=== PATIENT | male | born 1990 | race Caucasian/White ===

== ENCOUNTER 2016-03-09 07:54 | Day surgery (SDC) | payer BC, MEDICAID ==
[~2016-03-09] VITALS: Ht 190.5 cm; Wt 122.5 kg
[2016-03-09] VITALS (10 sets, daily range): BP systolic 119–143; BP diastolic 80–102
[~2016-03-09 07:54] MED LIST: CEFT1VIA58 IJ; CYCL10TA9 PO; DOCU-143 PO; FURO40TA4 PO; GLIM2TAB PO; GLUC1KIT; HYDR-3583 PO; HYDR-3812 PO; INSU100I10; INSU100I14; LISI10TA2 PO; LORA-405 PO; METF1000 PO; METF500T8 PO; METH4TAB PO; METO-272 PO; MTF500T PO; NAPR220T66 PO; OMEP20CA12; POTA20TA15; VIVANCE PO
--- OUTSIDE RECORDS SUMMARY | 2016-03-09 07:58 | XMS REPORT | Continuity of Care Document ---
Author Author [facility] Organization [facility] Address Unknown Phone Unavailable Care Team Providers Care Chemistry Quality Control Analyst Name Role Phone JOANNE LOPEZ DO PCP Insurance Providers Payer Name Policy Number Subscriber Name Relationship 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 Problems Active Problems Medical Problem Onset Date Status Anemia Unknown Acute Electrolyte imbalance Unknown Acute Hypokalemia Unknown Acute Leukocytosis Unknown Acute Renal insufficiency Unknown Acute Uncontrolled diabetes mellitus Unknown Acute Urinary tract infection Unknown Acute Medications Current Home Medications Medication Dose Units Route Directions Days/Qty Instructions Start Date Metoprolol Succinate 50 Mg 50 Mg Oral Bedtime 10/14/15 Naproxen Sodium 220 Mg 220-440 Mg Oral Twice A Day as needed for Pain TAKES 1-2 (220 MG) TABLETS 10/14/15 Furosemide 40 Mg 30 11/25/15 Potassium Chloride 20 Meq 60 11/25/15 Glucagon,Human Recombinant 1 Mg/Kit 1 10/05/16 Insulin Aspart 300 Units/3 Ml 6 11/25/15 Insulin Glargine,Hum.rec.anlog 100 Unit/1 Ml 6 11/25/15 Ceftriaxone Sodium 1 Gm 1 Gm Injection 11/25/15 Past Home Medications Medication Directions Ordered Status [Vivance] , 100 Mg Oral Daily 02/13/09 Discontinued Methylprednisolone 4 Mg/Dose-Pack Tab.ds.pk, 0 Oral As Directed 02/13/09 Discontinued Cyclobenzaprine Hcl (Flexeril) 10 Mg Tablet, 1 Each Oral Three Times A Day And Prn 02/13/09 Discontinued Metformin Hcl (Glucophage) 500 Mg Tablet, 1 Each Oral Daily 11/16/09 Discontinued Acetaminophen/Hydrocodone Bitart 1 Tab Tab, 1 - 2 Ea Oral Q4hr Prn 11/19/09 Discontinued Metformin Hcl 1,000 Mg Tablet, 1000 Mg Oral Twice A Day 02/10/15 Discontinued Metoprolol Succinate 50 Mg Tab.er.24h, 50 Mg Oral Bedtime 02/10/15 Discontinued Lorazepam 1 Mg Tablet, 1 Mg Oral Three Times A Day as needed for Anxiety Discontinued Hydrocodone/Acetaminophen 1 Each Tablet, 1 Tab Oral Every 4HRS as needed for 02/12/15 Discontinued Docusate Sodium 100 Mg Capsule, 100 Mg Oral Twice A Day 02/12/15 Discontinued Lisinopril 10 Mg Tablet, 10 Mg Oral Daily 10/13/15 Discontinued Metformin Hcl 500 Mg Tab.er.24h, 1000 Mg Oral Twice A Day 10/13/15 Discontinued Glimepiride 2 Mg Tablet, 2 Mg Oral Twice A Day 10/13/15 Discontinued Omeprazole 20 Mg Capsule., 10/14/15 Discontinued Social History Social History Problem Response Recorded Date/Time Alcohol Use Occasionally Uses 02/12/2015 9:28am Recreational Drug Use No 02/12/2015 9:28am Recent Foreign Travel No 11/25/2015 1:35am Recent Infectious Disease Exposure No 11/25/2015 1:35am Hospitalization with Isolation Denies 11/25/2015 1:35am Sexually Transmitted Disease No 11/25/2015 1:35am HIV/AIDS No 11/25/2015 1:35am Smoking Status Former Smoker 11/25/2015 2:41am Type Used Cigarettes 11/25/2015 1:35am Recent Hopitalizations Yes 11/25/2015 2:41am Sexually Transmitted Disease No 11/25/2015 1:35am Hospitalization with Isolation Denies 11/25/2015 1:35am Hx Sexually Transmitted Disorders No 11/19/2009 10:05am Query Response Start Date Stop Date Smoking Status Former Smoker Hospital Discharge Instructions No hospital discharge instructions. Plan of Care Discharge Date 11/25/15 12:42pm Disposition 02 XFER [facility]M HOSP Condition at Discharge Stable Instructions/Education Provided Acute Abdominal Pain (ED) Prescriptions See Medication Section Referrals JOANNE LOPEZ DO - Primary Care Physician NERY WATSON - Primary Care Physician Functional Status No functional status results. Allergies, Adverse Reactions, Alerts Allergen Type Severity Reaction Status Last Updated Tramadol Allergy Mild Active 02/13/09 Topiramate Allergy Intermediate MADE HAIR FALL OUT Active 02/10/15 Immunizations No immunization records. Vital Signs Acute Vital Signs Vital Response Date/Time Temperature (Fahrenheit) 97.8 degrees F (97.6 - 99.5) 11/25/2015 5:00am Temperature (Calculated Celsius) 36.47735 degrees C (36.4 - 37.5) 11/25/2015 5:00am Temperature Source Temporal 11/25/2015 5:00am Pulse Rate (adult) 91 bpm (60 - 90) 11/25/2015 6:30am Respiratory Rate 13 bpm (12 - 24) 11/25/2015 6:30am O2 Sat by Pulse Oximetry 94 % (88 - 100) 11/25/2015 6:30am Blood Pressure 125/64 mm Hg 11/25/2015 6:30am Blood Pressure Mean 84 mm Hg 11/25/2015 6:30am Pain Numeric Pain Scale 7 11/25/2015 11:33am Height (Feet) 6 feet 11/25/2015 1:35am Height (Inches) 3 inches 11/25/2015 1:35am Height (Calculated Centimeters) 190.166791 cm 11/25/2015 1:35am Weight (Pounds) 270 pounds 11/25/2015 1:35am Weight (Ounces) 0.8 oz 11/25/2015 1:35am Weight (Calculated Grams) 897304.424 gm 11/25/2015 1:35am Weight (Calculated Kilograms) 122.163301 kilograms 11/25/2015 1:35am Calculated BMI 40.0 11/25/2015 1:35am Capillary Refill Capillary Refill Less Than 3 Seconds 11/25/2015 6:30am Results Pending Laboratory Results Test Name Collection Date/Time Procedures Procedure Status Date Provider(s) Tracing only of electrocardiogram Active 11/25/15 ISAAC INGRAM DO Encounters Encounter Location Arrival/Admit Date Discharge/Depart Date Attending Provider Departed Emergency Room [facility] 11/25/15 1:19am 11/24 12:42pm ISAAC INGRAM DO Registered Clinic [facility] 11/23/15 5:34pm OTHER, UNLISTED Registered Clinic [facility] 11/23/15 5:23pm NERY WATSON Recent Diagnosis
--- OUTSIDE RECORDS SUMMARY | 2016-03-09 07:59 | XMS REPORT | Continuity of Care Document ---
Author Author [facility] Organization [facility] Address Unknown Phone Unavailable Care Team Providers Care Compliance Engineer Name Role Phone JOANNE LOPEZ DO PCP Insurance Providers Payer Name Policy Number Subscriber Name Relationship [facility] [id number] Bertha Lei 20 Self / Same As Patient Advance Directives Directive Response Recorded Date/Time Advance Directives No 11/25/15 1:35am Health Care Power of Golf Course Manager No 11/25/15 1:35am Organ Donor Yes 11/25/15 [...] - 99.5) 11/25/2015 5:00am Temperature (Calculated Celsius) 36.47821 degrees C (36.4 - 37.5) 11/25/2015 5:00am [...] 3 inches 11/25/2015 1:35am Height (Calculated Centimeters) 190.532573 cm 11/25/2015 1:35am Weight (Pounds) 270 pounds 11/25/2015 1:35am Weight (Ounces) 0.8 oz 11/25/2015 1:35am Weight (Calculated Grams) 002261.424 gm 11/25/2015 1:35am Weight (Calculated Kilograms) 122.792182 kilograms 11/25/2015 1:35am Calculated BMI 40.0 11/25/2015 1:35am Capillary Refill Capillary Refill Less Than 3 Seconds 11/25/2015 6:30am Results Pending Laboratory Results Test Name Collection Date/Time Procedures Procedure Status Date Provider(s) Tracing only of electrocardiogram Active 11/25/15 ISAAC INGRAM DO Encounters Encounter Location Arrival/Admit Date Discharge/Depart Date Attending Provider Departed Emergency Room [facility] 11/25/15 1:19am 11/24 12:42pm ISAAC INGRAM DO Registered Clinic [facility] 11/23/15 5:34pm OTHER, UNLISTED Registered Clinic [facility] 11/23/15 5:23pm NERY WATSON Recent Diagnosis
[2016-03-09] MEDS ORDERED: LIDOCAINE 2% VISCOUS 15 ML UDC ONE (08:00)
[2016-03-09] MEDS ORDERED: NS IV 1000 ML 1,000 ML ONE (08:00)
[2016-03-09] MEDS ORDERED: NS IV 1000 ML 1,000 ML IV SCH (08:10)
[2016-03-09 08:34] LABS: MEAN PLATELET VOLUME 10.1 FL (7.4-10.4); RED BLOOD COUNT 4.93 10^6/uL (4.35-5.85); RED CELL DISTRIBUTION WIDTH 14.8 % (10.0-14.5); WHITE BLOOD COUNT 13.7 10^3/uL (4.3-11.0)
[2016-03-09 08:40] LABS: BILIRUBIN,URINE NEGATIVE (NEGATIVE); KETONES,URINE NEGATIVE (NEGATIVE); LEUKOCYTE ESTERASE ,URINE NEGATIVE (NEGATIVE); NITRITE,URINE NEGATIVE (NEGATIVE); PH,URINE 7 (5-9); PROTEIN,URINE 1+ (NEGATIVE); UROBILINOGEN,URINE NORMAL (NORMAL)
[2016-03-09 08:43] LABS: SQUAMOUS EPITHELIAL CELL,UR RARE /HPF; WBC,URINE RARE /HPF
[2016-03-09 08:46] LABS: INR 1.2 (0.8-1.4); PROTHROMBIN TIME PATIENT 14.4 SEC (12.2-14.7)
[2016-03-09 08:57] LABS: ALANINE AMINOTRANSFERASE 13 U/L (0-55); ALBUMIN 3.9 G/DL (3.2-4.5); ANION GAP 9 MMOL/L (5-14); ASPARTATE AMINO TRANSFERASE 16 U/L (5-34); BILIRUBIN,TOTAL 1.2 MG/DL (0.1-1.0); BLOOD UREA NITROGEN 12 MG/DL (7-18); BUN/CREATININE RATIO 12; CALCIUM 10.1 MG/DL (8.5-10.1); CARBON DIOXIDE 23 MMOL/L (21-32); CHLORIDE 105 MMOL/L (98-107); CHOLESTEROL 154 MG/DL (< 200); CREATININE SERUM 0.99 MG/DL (0.60-1.30); DIRECT LDL 113 MG/DL (1-129); GFR ESTIMATED > 60; GLUCOSE 143 MG/DL (70-105); POTASSIUM 3.8 MMOL/L (3.6-5.0); SODIUM 137 MMOL/L (135-145); TOTAL PROTEIN 7.2 G/DL (6.4-8.2); TRIGLYCERIDES 129 MG/DL (<150); VLDL CHOLESTEROL 26 MG/DL (5-40)
--- NOTE | 2016-03-09 08:59 | Diagnostic Imaging Report ---
INDICATION: CHF and hypertension. Frontal chest obtained at 839 hours am, and compared to 10/16/15. There is cardiomegaly and post sternotomy change with prosthetic aortic valve. There is central vascular congestion with mild perihilar interstitial edema which was not present previously. There is no pneumothorax or pleural fluid or consolidation. IMPRESSION: Cardiomegaly. New central vascular congestion and perihilar and interstitial edema compatible with CHF. Patient has had sternotomy and aortic valve replacement since the prior study. Dictated by: Dictated on workstation # [id number]
[2016-03-09] MEDS ORDERED: SPIR25TA3 PO (09:11)
[2016-03-09] MEDS ORDERED: SERT25TA5 PO (09:11)
[2016-03-09] MEDS ORDERED: CYCL10TA9 PO (09:11)
[2016-03-09] MEDS ORDERED: CARV3.12 PO (09:11)
[2016-03-09] MEDS ORDERED: GABA600T2 PO (09:11)
[2016-03-09] MEDS ORDERED: FAMO20TA3 PO (09:12)
[2016-03-09] MEDS ORDERED: INSU100V16 SQ (09:21)
[2016-03-09] MEDS ORDERED: MIDAZOLAM 5 MG/5 ML (VERSED) VIAL ONE (09:39)
[2016-03-09] MEDS ORDERED: fentaNYL INJECTION 100 MCG/2 ML AMP ONE (09:39)
--- NOTE | 2016-03-09 09:46 | Cardiac Procedure Note-CS/ASA ---
Pre-Procedure Note Pre-Op Procedure Note H&P Reviewed The H&P was reviewed, patient examined and no changes noted. Date H&P Reviewed: Mar 09, 2016 Time H&P Reviewed: 09:45 Conscious Sedation Pre-Proced Time Reviewed: 09:45 ASA Class: 3 Airway Mallampati Classification: ([place] appropriate class) I. II. III, IV Lungs Heart ASA score ASA 1: a normal healthy patient ASA 2: a patient with a mild systemic disease (mid diabetes, controlled hypertension, obesity X ASA 3: a patient with a severe systemic disease that limits activity (angina , COPD, prior Myocardial infarction) ASA 4: a patient with an incapacitating disease that is a constant threat to life (CHF, renal failure) ASA 5: a moribund patient not expected to survive 24 hrs. (ruptured aneurysm) ASA 6: a declared brain patient whose organs are being harvested. For emergent operations, add the letter E after the classification Grade 3 Sedation Plan: Analgesia, Amnesia, Plan communicated to team members, Discussed options with patient/fam, Discussed risks with patient/fam Note The patient is an appropriate candidate to undergo the planned procedure, sedation, and anesthesia. The patient immediately re-assessed prior to indication. SCARLET FARRELL MD Mar 09, 2016 09:46
[2016-03-09] MEDS ORDERED: FLUMAZENIL (ROMAZICON) 0.1 MG/ML 5 ML VIAL ONE (10:20)
--- NOTE | 2016-03-10 11:38 | DISCHARGE SUMMARY ---
DATE OF PROCEDURE: 03/09/2015 REFERRING PHYSICIAN: Dr. Hermosillo. BRIEF HISTORY: Mr. 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 Redo surgery. He had a transthoracic echo, which did not show the structure of the valve while he was scheduled for RADHA. PROCEDURE NOTE: After explaining the procedure to the patient, all pros and cons were explained. All questions were answered. The patient signed a consent, then he was placed on the left lateral decubitus position. Oropharynx was anesthetized using Cetacaine spray. Omniplane probe was introduced through the mouth, through the esophagus into the stomach. Multiple views were obtained. At the end of the procedure Omniplane probe was removed. No complication noted. FINDINGS: 1. The left ventricle is dilated with diffuse left ventricular hypokinesia. Estimated ejection fraction 30%. 2. The left atrium is dilated, right atrium and right ventricle are prominent. 3. Intra-atrial septum is aneurysmal with shunt noted by agitated saline when it was used. Small amount of bubbles crossing from the right to left. 4. Evaluation of the mitral valve area showed porcine valve in the mitral position appeared to be functioning normally (s/l with thin leaflet). No significant mitral regurgitation. No mitral valve stenosis was noted. Pressure half-time across the mitral valve calculated the valve area of 3.2 mm. 5. Aortic valve evaluation showed prosthetic valve trileaflet in the aortic position. Porcine valve appeared to be with (s/l thin leaflet), functioning normally. No aortic stenosis or regurgitation. 6. Tricuspid and pulmonary valves are normal. 7. No effusion. CONCLUSION: 1. Prosthetic valve in the mitral position porcine valve functioning normally with no mitral stenosis or regurgitation. No vegetation. 2. Prosthetic valve the aortic position trileaflet porcine valve is functioning normally with no aortic stenosis or regurgitation. No vegetation. 3. Dilated left ventricle with diffuse left ventricular hypokinesia. Estimated ejection fraction 30%. 4. Small patent foramen ovale with bidirectional shunt. 5. Dilated left atrium and right heart chambers. FINAL DIAGNOSES: 1. Congestive heart failure, chronic compensated left ventricular systolic dysfunction, nonischemic cardiomyopathy, ejection fraction 30%. 2. Mitral valve replacement. 3. Aortic valve replacement. 4. Diabetes mellitus Job ID: [id number] Dictated Date: 03/09/2016 11:16:40 Contract Technical Writer Date: 03/10/2016 11:35:20/michela
== END 2016-03-09 15:33 | disposition home or self-care (01) ==
LOC: CATH 07:54
PROVIDERS: ATTEND Internal Medicine Cardiovascular Disease
DX: Q21.1 Atrial septal defect (principal); Z95.2 Presence of prosthetic heart valve; I50.22 Chronic systolic (congestive) heart failure; I51.89 Other ill-defined heart diseases; I44.2 Atrioventricular block, complete; E11.40 Type 2 diabetes mellitus with diabetic neuropathy, unspecified; G62.9 Polyneuropathy, unspecified; G89.4 Chronic pain syndrome; E66.9 Obesity, unspecified; I10 Essential (primary) hypertension; Z79.899 Other long term (current) drug therapy; Z79.4 Long term (current) use of insulin; Z68.34 Body mass index [BMI] 34.0-34.9, adult; Z95.0 Presence of cardiac pacemaker
CPT/HCPCS: 36415; 71010; 80053; 80061; 81000; 85027; 85610; 85730; 87081; 93005; 93312

== ENCOUNTER 2016-03-28 21:58 | Emergency (ER) | payer BC, MEDICAID ==
[~2016-03-28] VITALS: Ht 190.5 cm; Wt 129.3 kg
[~2016-03-28 21:58] MED LIST changes: +CARV3.12 PO; +FAMO20TA3 PO; +GABA600T2 PO; +INSU100V16 SQ; +SERT25TA5 PO; +SPIR25TA3 PO
--- OUTSIDE RECORDS SUMMARY | 2016-03-28 22:04 | XMS REPORT | Continuity of Care Document ---
Author Author [facility] Organization [facility] Address Unknown Phone Unavailable Care Team Providers Care Conveyor Man Name Role Phone JOANNE LOPEZ DO PCP Insurance Providers Payer Name Policy Number Subscriber Name Relationship [facility] [id number] Bertha Lei 20 Self / Same As Patient Advance Directives Directive Response Recorded Date/Time Advance Directives No 11/25/15 1:35am Health Care Power of Grounds Person No 11/25/15 1:35am Organ Donor Yes 11/25/15 [...] - 99.5) 11/25/2015 5:00am Temperature (Calculated Celsius) 36.07598 degrees C (36.4 - 37.5) 11/25/2015 5:00am [...] 3 inches 11/25/2015 1:35am Height (Calculated Centimeters) 190.073038 cm 11/25/2015 1:35am Weight (Pounds) 270 pounds 11/25/2015 1:35am Weight (Ounces) 0.8 oz 11/25/2015 1:35am Weight (Calculated Grams) 815450.424 gm 11/25/2015 1:35am Weight (Calculated Kilograms) 122.340897 kilograms 11/25/2015 1:35am Calculated BMI 40.0 11/25/2015 1:35am Capillary Refill Capillary Refill Less Than 3 Seconds 11/25/2015 6:30am Results Pending Laboratory Results Test Name Collection Date/Time Procedures Procedure Status Date Provider(s) Tracing only of electrocardiogram Active 11/25/15 ISAAC INGRAM DO Encounters Encounter Location Arrival/Admit Date Discharge/Depart Date Attending Provider Departed Emergency Room [facility] 11/25/15 1:19am 11/24 12:42pm ISAAC INGRAM DO Registered Clinic [facility] 11/23/15 5:34pm OTHER, UNLISTED Registered Clinic [facility] 11/23/15 5:23pm NERY WATSON Recent Diagnosis
[2016-03-28 22:37] VITALS: BP 148/104
== END 2016-03-28 22:37 | disposition left against medical advice (07) ==
LOC: EDUNIT# 21:58 → ER 22:00
DX: R11.2 Nausea with vomiting, unspecified (principal); F32.9 Major depressive disorder, single episode, unspecified; Z53.21 Procedure and treatment not carried out due to patient leaving prior to being seen by health care provider
CPT/HCPCS: 82962; 99285

== ENCOUNTER → 2016-04-11 | Outpatient (CLI) | payer BC, MEDICAID ==
--- OUTSIDE RECORDS SUMMARY | 2016-04-11 16:23 | XMS REPORT | Continuity of Care Document ---
Author Author [facility] Organization [facility] Address Unknown Phone Unavailable Care Team Providers Care Compensation Consulting Manager Name Role Phone JOANNE LOPEZ DO PCP Insurance Providers Payer Name Policy Number Subscriber Name Relationship [facility] [id number] Bertha Lei 20 Self / Same As Patient Advance Directives Directive Response Recorded Date/Time Advance Directives No 11/25/15 1:35am Health Care Power of Bible Worker No 11/25/15 1:35am Organ Donor Yes 11/25/15 [...] - 99.5) 11/25/2015 5:00am Temperature (Calculated Celsius) 36.14184 degrees C (36.4 - 37.5) 11/25/2015 5:00am [...] 3 inches 11/25/2015 1:35am Height (Calculated Centimeters) 190.762675 cm 11/25/2015 1:35am Weight (Pounds) 270 pounds 11/25/2015 1:35am Weight (Ounces) 0.8 oz 11/25/2015 1:35am Weight (Calculated Grams) 079654.424 gm 11/25/2015 1:35am Weight (Calculated Kilograms) 122.060386 kilograms 11/25/2015 1:35am Calculated BMI 40.0 11/25/2015 1:35am Capillary Refill Capillary Refill Less Than 3 Seconds 11/25/2015 6:30am Results Pending Laboratory Results Test Name Collection Date/Time Procedures Procedure Status Date Provider(s) Tracing only of electrocardiogram Active 11/25/15 ISAAC INGRAM DO Encounters Encounter Location Arrival/Admit Date Discharge/Depart Date Attending Provider Departed Emergency Room [facility] 11/25/15 1:19am 11/24 12:42pm ISAAC INGRAM DO Registered Clinic [facility] 11/23/15 5:34pm OTHER, UNLISTED Registered Clinic [facility] 11/23/15 5:23pm NERY WATSON Recent Diagnosis
[2016-04-11 16:39] LABS: BASOPHILS # (AUTO) 0.1 10^3/uL (0.0-0.1); BASOPHILS % (AUTO) 1 % (0-10); EOSINOPHILS # (AUTO) 0.1 10^3/uL (0.0-0.3); EOSINOPHILS % (AUTO) 1 % (0-10); LYMPHOCYTES # (AUTO) 2.9 X 10^3 (1.0-4.0); LYMPHOCYTES % (AUTO) 23 % (12-44); MEAN CORPUSCULAR HEMOGLOBIN 29 PG (25-34); MEAN CORPUSCULAR HGB CONC 33 G/DL (32-36); MEAN CORPUSCULAR VOLUME 87 FL (80-99); MONOCYTES # (AUTO) 1.1 X 10^3 (0.0-1.0); MONOCYTES % (AUTO) 9 % (0-12); NEUTROPHILS # (AUTO) 8.2 X 10^3 (1.8-7.8); NEUTROPHILS % (AUTO) 66 % (42-75); PLATELET COUNT 240 10^3/uL (130-400); RED BLOOD COUNT 5.69 10^6/uL (4.35-5.85); RED CELL DISTRIBUTION WIDTH 14.8 % (10.0-14.5); WHITE BLOOD COUNT 12.5 10^3/uL (4.3-11.0)
--- NOTE | 2016-04-25 17:28 | Diagnostic Imaging Report ---
PA and lateral chest at 4:56 p.m. INDICATION: Shortness of breath. FINDINGS: The heart is enlarged but both the heart and the central pulmonary vascularity do not appear quite as prominent as on the prior exam of 03/09/2016. Even so, there may still be an element of mild pulmonary congestion present. There is no consolidated pneumonia identified and there is no pleural effusion evident. The mediastinum is not widened. The osseous structures are intact. The sternotomy wires and valvular prostheses seen on the prior study are again evident and unchanged. IMPRESSION: There is cardiomegaly and evidence of prior cardiac surgery and perhaps mild pulmonary congestion. There is no acute cardiopulmonary abnormality identified otherwise. Dictated by: Dictated on workstation # [id number]
== END ==
LOC: RAD 16:18
PROVIDERS: ATTEND Family Medicine
DX: R05 Cough (principal); R06.2 Wheezing
CPT/HCPCS: 36415; 71020; 85025

== ENCOUNTER → 2016-06-17 | Outpatient (CLI) | payer BC, MEDICAID ==
--- NOTE | 2016-06-17 14:16 | ECHOCARDIOGRAPHY REPORT ---
DATE OF SERVICE: 06/17/2016 2D ECHOCARDIOGRAM REFERRING PHYSICIAN: Reynold Joiner MD and Dmitriy Hermosillo DO MEASUREMENT: LVID end diastolic 5.1, IVS thickness 1.2, LVPW thickness 1.2, left atrial diameter 4.0, ejection fraction 20%. FINDINGS: 1. Technically difficult study. 2. The left ventricle is prominent with diffuse left ventricle hypokinesia. Systolic function is reduced. Estimated ejection fraction 20%. 3. The left atrium is dilated. No clots or thrombus were seen within the left atrium. 4. The right atrium and right ventricle are prominent. No clots or thrombus were seen. 5. Evaluation of the mitral valve showed echogenic density representing prostatic valve in the mitral position, appeared to be functioning normally. The mitral valve area by pressure half time is 2.7 square cm. No significant mitral regurgitation. 6. The aortic valve leaflets were not well visualized. The patient had prostatic valve in the aortic position. Doppler across the prosthetic valve estimated the peak gradient of 21 mmHg, mean gradient of 13 mmHg, calculated valve area of 1.7 square cm. No significant aortic stenosis. 7. The tricuspid valve is normal in morphology with moderate tricuspid regurgitation noted by color Doppler flow. Doppler across the tricuspid valve estimated a pulmonary artery pressure of 36 plus right atrial pressure. 8. The pulmonic valve is functioning normally. 9. No pericardial effusion. CONCLUSION: 1. Dilated left ventricle with diffuse left ventricular hypokinesia, estimated ejection fraction 20%. 2. Prostatic valve in the aortic and mitral position appear to be functioning normally. 3. Mild to moderate tricuspid regurgitation with estimated pulmonary artery pressure of 45 mmHg. Job ID: [id number] DocumentID: [id number] Dictated Date: 06/17/2016 10:23:26 Fur Farmer Date: 06/17/2016 13:46:37 Dictated By: SCARLET FARRELL MD
== END ==
LOC: CARD 09:28
PROVIDERS: ATTEND Internal Medicine Interventional Cardiology
DX: I44.2 Atrioventricular block, complete (principal); Z95.0 Presence of cardiac pacemaker
CPT/HCPCS: 93306

== ENCOUNTER → 2016-06-24 | Outpatient (CLI) | payer BC, MEDICAID ==
--- NOTE | 2016-06-26 20:31 | ECHOCARDIOGRAPHY REPORT ---
DATE OF SERVICE: 06/24/2016 2D ECHOCARDIOGRAM REFERRING PHYSICIAN: Dr. Hermosillo. MEASUREMENT: LVID end-diastolic 6.2, IVS thickness 1.0, LVPW thickness 1.0, left atrial diameter 4.0, ejection fraction 20%. FINDINGS: 1. Technically difficult study. 2. The left ventricle is dilated with dyskinesia of the anterior wall, anterior septum, diffuse left ventricle hypokinesia, estimated ejection fraction 20%. 3. The left atrium is dilated. No clot or thrombus was seen within the left atrium. 4. The right atrium and right ventricle are dilated. No clot or thrombus was seen within the right side. 5. Evaluation of the mitral valve showed struts of prosthetic valve, porcine valve in the mitral position, appeared to be functioning normally. 6. Aortic valve was not well visualized. There is no significant aortic stenosis or regurgitation seen. The valve appeared to be functioning. 7. The tricuspid valve is normal in morphology with mild tricuspid regurgitation noted by color Doppler flow. Doppler across the tricuspid valve estimated pulmonary artery pressure of 12 plus right atrial pressure. 8. Pulmonic valve is functioning normally. 9. No pericardial effusion. CONCLUSIONS: 1. Dilated left ventricle with dyskinesia of the anterior wall, anterior septum, diffuse left ventricular hypokinesia, estimated ejection fracture 20%. 2. Prosthetic valve in the mitral and aortic position functioning normally. 3. Left atrial dilatation. 4. Estimated pulmonary artery pressure of 20 mmHg. Job ID: [id number] DocumentID: [id number] Dictated Date: 06/25/2016 08:10:32 Special Education Resource Teacher Date: 06/25/2016 13:02:40 Dictated By: SCARLET FARRELL MD
== END ==
LOC: CARD 10:30
PROVIDERS: ATTEND Internal Medicine Cardiovascular Disease
DX: I44.2 Atrioventricular block, complete (principal); Z95.0 Presence of cardiac pacemaker
CPT/HCPCS: 93306

== ENCOUNTER 2016-07-05 15:39 | Emergency (ER) | payer BC, MEDICAID ==
[~2016-07-05] VITALS: Ht 190.5 cm; Wt 136.1 kg
[2016-07-05 16:09] LABS: BASOPHILS # (AUTO) 0.1 10^3/uL (0.0-0.1); BASOPHILS % (AUTO) 1 % (0-10); EOSINOPHILS # (AUTO) 0.1 10^3/uL (0.0-0.3); EOSINOPHILS % (AUTO) 1 % (0-10); LYMPHOCYTES # (AUTO) 3.3 X 10^3 (1.0-4.0); LYMPHOCYTES % (AUTO) 28 % (12-44); MEAN CORPUSCULAR HEMOGLOBIN 30 PG (25-34); MEAN CORPUSCULAR HGB CONC 34 G/DL (32-36); MEAN CORPUSCULAR VOLUME 88 FL (80-99); MEAN PLATELET VOLUME 10.2 FL (7.4-10.4); MONOCYTES # (AUTO) 0.9 X 10^3 (0.0-1.0); MONOCYTES % (AUTO) 8 % (0-12); NEUTROPHILS # (AUTO) 7.2 X 10^3 (1.8-7.8); NEUTROPHILS % (AUTO) 62 % (42-75); PLATELET COUNT 258 10^3/uL (130-400); RED BLOOD COUNT 4.62 10^6/uL (4.35-5.85); RED CELL DISTRIBUTION WIDTH 14.3 % (10.0-14.5); WHITE BLOOD COUNT 11.6 10^3/uL (4.3-11.0)
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
[2016-07-05 16:37] LABS: ALANINE AMINOTRANSFERASE 16 U/L (0-55); ALBUMIN 3.9 G/DL (3.2-4.5); ALCOHOL 82 MG/DL (<10); AMYLASE 25 U/L (25-125); ANION GAP 9 MMOL/L (5-14); ASPARTATE AMINO TRANSFERASE 14 U/L (5-34); BILIRUBIN,TOTAL 0.4 MG/DL (0.1-1.0); BLOOD UREA NITROGEN 36 MG/DL (7-18); BUN/CREATININE RATIO 30; CALCIUM 8.8 MG/DL (8.5-10.1); CARBON DIOXIDE 21 MMOL/L (21-32); CHLORIDE 109 MMOL/L (98-107); CREATININE SERUM 1.22 MG/DL (0.60-1.30); GFR ESTIMATED > 60; GLUCOSE 124 MG/DL (70-105); LIPASE 32 U/L (8-78); POTASSIUM 4.3 MMOL/L (3.6-5.0); SODIUM 139 MMOL/L (135-145); TOTAL PROTEIN 6.6 G/DL (6.4-8.2)
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
[2016-07-05 17:01] LABS: BILIRUBIN,URINE NEGATIVE (NEGATIVE); KETONES,URINE NEGATIVE (NEGATIVE); LEUKOCYTE ESTERASE ,URINE NEGATIVE (NEGATIVE); NITRITE,URINE NEGATIVE (NEGATIVE); PH,URINE 6 (5-9); PROTEIN,URINE 2+ (NEGATIVE); UROBILINOGEN,URINE NORMAL (NORMAL)
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
[2016-07-05 17:27] LABS: WBC,URINE RARE /HPF
[2016-07-05] MEDS ORDERED: ONDA4TAB8 PO (17:50)
[2016-07-05 17:58] VITALS: BP 116/62
== END 2016-07-05 17:58 | disposition home or self-care (01) ==
LOC: EDUNIT# 15:39 → ER 15:40
DX: S16.1XXA Strain of muscle, fascia and tendon at neck level, initial encounter (principal); S39.012A Strain of muscle, fascia and tendon of lower back, initial encounter; R11.2 Nausea with vomiting, unspecified; F10.129 Alcohol abuse with intoxication, unspecified; Y90.4 Blood alcohol level of 80-99 mg/100 ml; F17.210 Nicotine dependence, cigarettes, uncomplicated; Z95.0 Presence of cardiac pacemaker; Z95.2 Presence of prosthetic heart valve; V43.52XA Car driver injured in collision with other type car in traffic accident, initial encounter; Y92.414 Local residential or business street as the place of occurrence of the external cause; Y99.8 Other external cause status
CPT/HCPCS: 36415; 72125; 72128; 72131; 80053; 80306; 80320; 81000; 82150; 83690; 83735; 85025

== ENCOUNTER → 2016-07-14 | Day surgery (SDC) | payer BC, MEDICAID ==
[~2016-07-14] VITALS: Ht 190.5 cm; Wt 140.6 kg
[~2016-07-14] MED LIST changes: +BACITRACIN INJECTION 50,000 UNIT, SODIUM CHLORIDE 0.9% IRRIGATIO 500 ML IR ONE; +CARV3.122 PO; +FAMO20TA5 PO; +HEParin (CATH LAB) 0 ML IV ONE; +INSU100I14 SQ; +LIDOCAINE 1% INJ 20 ML (XYLOCAINE) VIAL ONE; +LORA1TAB PO; +NS IV 1000 ML 1,000 ML IV SCH; +NS IV 1000 ML 1,000 ML ONE; +ONDA4TAB8 PO; +SACU1TAB7 PO; +ceFAZolin 1,000 MG (ANCEF) VIAL ONE
[2016-07-14 09:40] VITALS: BP 135/79
[2016-07-14 09:46] LABS: MEAN CORPUSCULAR HEMOGLOBIN 30 PG (25-34); MEAN CORPUSCULAR HGB CONC 33 G/DL (32-36); MEAN CORPUSCULAR VOLUME 89 FL (80-99); MEAN PLATELET VOLUME 10.4 FL (7.4-10.4); PLATELET COUNT 252 10^3/uL (130-400); RED BLOOD COUNT 4.82 10^6/uL (4.35-5.85); RED CELL DISTRIBUTION WIDTH 13.9 % (10.0-14.5); WHITE BLOOD COUNT 14.2 10^3/uL (4.3-11.0)
[2016-07-14 10:03] LABS: INR 1.1 (0.8-1.4); PROTHROMBIN TIME PATIENT 14.3 SEC (12.2-14.7)
[2016-07-14 10:13] LABS: ALANINE AMINOTRANSFERASE 21 U/L (0-55); ALBUMIN 4.2 G/DL (3.2-4.5); ANION GAP 10 MMOL/L (5-14); ASPARTATE AMINO TRANSFERASE 15 U/L (5-34); BILIRUBIN,TOTAL 1.2 MG/DL (0.1-1.0); BLOOD UREA NITROGEN 16 MG/DL (7-18); BUN/CREATININE RATIO 16; CALCIUM 10.1 MG/DL (8.5-10.1); CARBON DIOXIDE 25 MMOL/L (21-32); CHLORIDE 103 MMOL/L (98-107); GFR ESTIMATED > 60; GLUCOSE 163 MG/DL (70-105); POTASSIUM 3.6 MMOL/L (3.6-5.0); SODIUM 138 MMOL/L (135-145); TOTAL PROTEIN 7.7 G/DL (6.4-8.2)
[2016-07-14 12:54] LABS: BILIRUBIN,URINE NEGATIVE (NEGATIVE); KETONES,URINE NEGATIVE (NEGATIVE); LEUKOCYTE ESTERASE ,URINE NEGATIVE (NEGATIVE); NITRITE,URINE NEGATIVE (NEGATIVE); PH,URINE 7 (5-9); PROTEIN,URINE 1+ (NEGATIVE); UROBILINOGEN,URINE NORMAL (NORMAL)
[2016-07-14 13:03] LABS: SQUAMOUS EPITHELIAL CELL,UR 0-2 /HPF
--- NOTE | 2016-07-14 14:02 | Diagnostic Imaging Report ---
PA and lateral views of the chest. INDICATION: Fever. FINDINGS: The lungs are clear. The heart size is mildly enlarged with suggestion of periaortic and pulmonary valve replacements. Sternotomy wires are seen. Percutaneous pacer wires are also noted anteriorly. There is no effusion or pneumothorax The mediastinum and francis appear unremarkable. IMPRESSION: Cardiomegaly. Evidence of pulmonary and aortic valve replacement. Dictated by: Dictated on workstation # [id number]
[2016-07-14 16:52] LABS: BASOPHILS # (AUTO) 0.1 10^3/uL (0.0-0.1); BASOPHILS % (AUTO) 0 % (0-10); EOSINOPHILS # (AUTO) 0.4 10^3/uL (0.0-0.3); EOSINOPHILS % (AUTO) 3 % (0-10); LYMPHOCYTES # (AUTO) 2.1 X 10^3 (1.0-4.0); LYMPHOCYTES % (AUTO) 15 % (12-44); MONOCYTES # (AUTO) 1.2 X 10^3 (0.0-1.0); MONOCYTES % (AUTO) 9 % (0-12); NEUTROPHILS # (AUTO) 10.1 X 10^3 (1.8-7.8); NEUTROPHILS % (AUTO) 73 % (42-75)
[2016-07-14 17:00] LABS: BAND NEUTROPHILS 1 %; BASOPHILS % (MANUAL) 0 %; EOSINOPHILS % (MANUAL) 4 %; LYMPHOCYTES % (MANUAL) 15 %; NEUTROPHILS % (MANUAL) 74 %
== END ==
LOC: CATH 08:45
PROVIDERS: ATTEND Internal Medicine Interventional Cardiology
DX: I44.2 Atrioventricular block, complete (principal); I50.22 Chronic systolic (congestive) heart failure; Z98.890 Other specified postprocedural states; Z53.09 Procedure and treatment not carried out because of other contraindication; Z95.0 Presence of cardiac pacemaker; Z79.4 Long term (current) use of insulin; Z79.899 Other long term (current) drug therapy; Z87.891 Personal history of nicotine dependence
CPT/HCPCS: 36415; 71020; 80053; 81000; 85007; 85027; 85610; 85730; 87040; 87070; 87081; 87205; 93005

== ENCOUNTER → 2016-07-19 | Outpatient (CLI) | payer BC, MEDICAID ==
[~2016-07-19] MED LIST changes: -BACITRACIN INJECTION 50,000 UNIT, SODIUM CHLORIDE 0.9% IRRIGATIO 500 ML IR ONE; -HEParin (CATH LAB) 0 ML IV ONE; -LIDOCAINE 1% INJ 20 ML (XYLOCAINE) VIAL ONE; -NS IV 1000 ML 1,000 ML IV SCH; -NS IV 1000 ML 1,000 ML ONE; -ceFAZolin 1,000 MG (ANCEF) VIAL ONE
[2016-07-19 15:52] LABS: BASOPHILS # (AUTO) 0.1 10^3/uL (0.0-0.1); BASOPHILS % (AUTO) 1 % (0-10); EOSINOPHILS # (AUTO) 0.2 10^3/uL (0.0-0.3); EOSINOPHILS % (AUTO) 1 % (0-10); LYMPHOCYTES # (AUTO) 2.9 X 10^3 (1.0-4.0); LYMPHOCYTES % (AUTO) 22 % (12-44); MEAN CORPUSCULAR HEMOGLOBIN 30 PG (25-34); MEAN CORPUSCULAR HGB CONC 34 G/DL (32-36); MEAN CORPUSCULAR VOLUME 89 FL (80-99); MEAN PLATELET VOLUME 9.9 FL (7.4-10.4); MONOCYTES # (AUTO) 0.9 X 10^3 (0.0-1.0); MONOCYTES % (AUTO) 7 % (0-12); NEUTROPHILS # (AUTO) 9.2 X 10^3 (1.8-7.8); NEUTROPHILS % (AUTO) 69 % (42-75); PLATELET COUNT 304 10^3/uL (130-400); RED CELL DISTRIBUTION WIDTH 13.8 % (10.0-14.5); WHITE BLOOD COUNT 13.3 10^3/uL (4.3-11.0)
== END ==
LOC: LAB 15:39
PROVIDERS: ATTEND Family Medicine
DX: J98.8 Other specified respiratory disorders (principal)
CPT/HCPCS: 36415; 85025

== ENCOUNTER → 2016-07-25 | Outpatient (CLI) | payer BC, MEDICAID ==
[2016-07-25 14:15] LABS: BASOPHILS # (AUTO) 0.1 10^3/uL (0.0-0.1); BASOPHILS % (AUTO) 1 % (0-10); EOSINOPHILS # (AUTO) 0.2 10^3/uL (0.0-0.3); EOSINOPHILS % (AUTO) 2 % (0-10); LYMPHOCYTES # (AUTO) 2.4 X 10^3 (1.0-4.0); LYMPHOCYTES % (AUTO) 22 % (12-44); MEAN CORPUSCULAR HEMOGLOBIN 30 PG (25-34); MEAN CORPUSCULAR HGB CONC 34 G/DL (32-36); MEAN CORPUSCULAR VOLUME 89 FL (80-99); MEAN PLATELET VOLUME 10.2 FL (7.4-10.4); MONOCYTES # (AUTO) 0.8 X 10^3 (0.0-1.0); MONOCYTES % (AUTO) 7 % (0-12); NEUTROPHILS # (AUTO) 7.6 X 10^3 (1.8-7.8); NEUTROPHILS % (AUTO) 69 % (42-75); PLATELET COUNT 237 10^3/uL (130-400); RED BLOOD COUNT 4.88 10^6/uL (4.35-5.85); RED CELL DISTRIBUTION WIDTH 13.6 % (10.0-14.5); WHITE BLOOD COUNT 11.1 10^3/uL (4.3-11.0)
== END ==
LOC: LAB 13:56
PROVIDERS: ATTEND Family Medicine
DX: D72.829 Elevated white blood cell count, unspecified (principal); J40 Bronchitis, not specified as acute or chronic
CPT/HCPCS: 36415; 85025

== ENCOUNTER 2016-07-28 07:44 | Day surgery (SDC) | payer BC, MEDICAID ==
[~2016-07-28] VITALS: Ht 190.5 cm; Wt 136.1 kg
[2016-07-28] VITALS (11 sets, daily range): BP systolic 111–159; BP diastolic 75–98
[2016-07-28] MEDS ORDERED: NS IV 1000 ML 1,000 ML ONE (07:56)
[2016-07-28] MEDS ORDERED: HEParin (CATH LAB) 1,000 ML IV ONE ×2 (07:56→14:06)
[2016-07-28] MEDS ORDERED: NS IV 1000 ML 1,000 ML IV SCH ×2 (07:59→17:21)
[2016-07-28] MEDS ORDERED: BACITRACIN INJECTION 50,000 UNIT, SODIUM CHLORIDE 0.9% IRRIGATIO 500 ML IR ONE ×2 (08:00)
[2016-07-28 08:21] LABS: MEAN PLATELET VOLUME 10.1 FL (7.4-10.4); RED BLOOD COUNT 5.17 10^6/uL (4.35-5.85); RED CELL DISTRIBUTION WIDTH 13.6 % (10.0-14.5); WHITE BLOOD COUNT 14.1 10^3/uL (4.3-11.0)
[2016-07-28 08:32] LABS: PROTHROMBIN TIME PATIENT 12.5 SEC (12.2-14.7)
[2016-07-28 08:41] LABS: ALANINE AMINOTRANSFERASE 25 U/L (0-55); ALBUMIN 4.3 G/DL (3.2-4.5); ANION GAP 9 MMOL/L (5-14); ASPARTATE AMINO TRANSFERASE 20 U/L (5-34); BILIRUBIN,TOTAL 0.9 MG/DL (0.1-1.0); BLOOD UREA NITROGEN 21 MG/DL (7-18); BUN/CREATININE RATIO 21; CALCIUM 11.1 MG/DL (8.5-10.1); CARBON DIOXIDE 24 MMOL/L (21-32); CHLORIDE 104 MMOL/L (98-107); CREATININE SERUM 1.01 MG/DL (0.60-1.30); GFR ESTIMATED > 60; GLUCOSE 188 MG/DL (70-105); SODIUM 137 MMOL/L (135-145); TOTAL PROTEIN 8.1 G/DL (6.4-8.2)
[2016-07-28] MEDS ORDERED: ASPI-983 PO (08:55)
[2016-07-28] MEDS ORDERED: ceFAZolin 1,000 MG (ANCEF) VIAL ONE (09:44)
[2016-07-28] MEDS ORDERED: fentaNYL INJECTION 100 MCG/2 ML AMP ONE ×2 (10:18→11:23)
[2016-07-28] MEDS ORDERED: MIDAZOLAM 5 MG/5 ML (VERSED) VIAL ONE ×3 (10:18→12:29)
[2016-07-28] MEDS ORDERED: diphenhydrAMINE 50 MG/ML INJ (BENADRYL) ONE (10:19)
--- NOTE | 2016-07-28 10:56 | Cardiac Procedure Note-CS/ASA ---
Pre-Procedure Note Pre-Op Procedure Note H&P Reviewed The H&P was reviewed, patient examined and no changes noted. Date H&P Reviewed: Jul 28, 2016 Time H&P Reviewed: 10:55 Conscious Sedation Pre-Proced Time Reviewed: 10:55 ASA Class: 3 Airway Mallampati Classification: ([place] appropriate class) I. II. III, IV Lungs Heart ASA score ASA 1: a normal healthy patient ASA 2: a patient with a mild systemic disease (mid diabetes, controlled hypertension, obesity ASA 3: a patient with a severe systemic disease that limits activity (angina , COPD, prior Myocardial infarction) ASA 4: a patient with an incapacitating disease that is a constant threat to life (CHF, renal failure) ASA 5: a moribund patient not expected to survive 24 hrs. (ruptured aneurysm) ASA 6: a declared brain patient whose organs are being harvested. For emergent operations, add the letter E after the classification Grade 1 Sedation Plan: Analgesia, Amnesia, Plan communicated to team members, Discussed options with patient/fam, Discussed risks with patient/fam Note The patient is an appropriate candidate to undergo the planned procedure, sedation, and anesthesia. The patient immediately re-assessed prior to indication. Van REILLY MD Jul 28, 2016 10:55 am
[2016-07-28] MEDS ORDERED: HYDROmorphone (DILAUDID) 2 MG/ML VIAL ONE ×2 (12:48→15:55)
[2016-07-28] MEDS ORDERED: MIDAZOLAM 2 MG/2 ML (VERSED) VIAL ONE (15:55)
[2016-07-28] MEDS ORDERED: NEO/POLY/BAC (NEOSPORIN) OINT 15 GM TUBE ONE (16:59)
--- NOTE | 2016-07-28 17:19 | Cardiology Post Procedure Note ---
Post-Procedure Note Physician (s)/Sand Polisher (s) Physician Van REILLY MD Pre-Procedure Diagnosis Pre-Procedure Diagnosis: Severe non-ischemic Cardiomyopathy Post-Procedure Note Procedure Start Date: Jul 28, 2016 Procedure Start Time: 11:00 Name of Procedure: Right sided BiV-ICD implantation Findings/Procedure Note Complicated Right sided implant. RA, RV and LV (lateral CS branch) leads with BiV-ICD device. No complications. Contrast: 150 ml Flouro time: one hour 37 minutes Flouro dose: 4448 mgy Anesthesia Type: Conscious Sedation Estimated blood loss (mL): 30 Contrast Amount: 150 Post-Procedure Diagnosis Post-operative diagnosis: Successful right sided BiV-ICD implantation Van REILLY MD Jul 28, 2016 5:19 pm
[2016-07-28] MEDS ORDERED: PATIENT MAY USE OWN MEDS, ALL PO SCH (17:30)
--- NOTE | 2016-07-28 18:21 | Diagnostic Imaging Report ---
EXAMINATION: Portable erect AP chest at 5:33 p.m. INDICATION: Pacemaker insertion. FINDINGS: In the interval since the prior exam of 07/14/2016, a right-sided defibrillator device has been inserted. The lead seems to be in good position. There is no pneumothorax identified. The overall appearance of the chest has not changed significantly otherwise. The mild cardiomegaly, the valvular prosthesis, and the sternotomy wires and surgical clips noted previously are again evident. The lungs are generally clear. The mediastinum is not widened. The osseous structures are intact. IMPRESSION: There has been interval insertion of a right-sided defibrillator device without apparent complication. There is no acute cardiopulmonary abnormality noted. Dictated by: Dictated on workstation # [id number]
[2016-07-28] MEDS: ceFAZolin INJECTION 1,000 MG in NS (IVPB) 50 ML IV SCH (19:51)
[2016-07-28] MEDS ORDERED: ACETAMINOPHEN 325 MG TABLET/CAPLET (TYLENOL) PO PRN (20:15)
[2016-07-29] VITALS: BP 125/76
[2016-07-29] MEDS: ceFAZolin INJECTION 1,000 MG in NS (IVPB) 50 ML IV SCH ×2 (03:43→11:19)
[2016-07-29 04:00] VITALS: BP 102/58
[2016-07-29 04:32] LABS: MEAN PLATELET VOLUME 10.5 FL (7.4-10.4); RED BLOOD COUNT 4.67 10^6/uL (4.35-5.85); RED CELL DISTRIBUTION WIDTH 13.5 % (10.0-14.5); WHITE BLOOD COUNT 13.6 10^3/uL (4.3-11.0)
[2016-07-29 05:03] LABS: ALANINE AMINOTRANSFERASE 22 U/L (0-55); ALBUMIN 3.7 G/DL (3.2-4.5); ANION GAP 11 MMOL/L (5-14); ASPARTATE AMINO TRANSFERASE 18 U/L (5-34); BILIRUBIN,TOTAL 0.9 MG/DL (0.1-1.0); BLOOD UREA NITROGEN 20 MG/DL (7-18); BUN/CREATININE RATIO 20; CALCIUM 9.8 MG/DL (8.5-10.1); CARBON DIOXIDE 24 MMOL/L (21-32); CHLORIDE 101 MMOL/L (98-107); CREATININE SERUM 1.02 MG/DL (0.60-1.30); GFR ESTIMATED > 60; GLUCOSE 200 MG/DL (70-105); POTASSIUM 3.9 MMOL/L (3.6-5.0); SODIUM 136 MMOL/L (135-145); TOTAL PROTEIN 6.9 G/DL (6.4-8.2)
--- NOTE | 2016-07-29 10:36 | Discharge Inst-Post Device ---
Discharge Inst-Post Device Follow up/Plan Follow-up with Dr. Joiner's office in one week for wound check. Heart Healthy Diet Do not lift arm on side of device placement above head for 4 weeks. Do not push and pull heavy objects for 4 weeks. Activity as tolerated. Leave dressing on until follow up at the office. Van JOINER MD Jul 29, 2016 10:36
--- NOTE | 2016-07-29 10:44 | Cardiology Discharge Summary ---
Diagnosis/Chief Complaint Date of Admission 07/28/2016 Date of Discharge 07/29/2016 Admission Diagnosis Nonischemic cardiomyopathy, NYHA II-III HF, EF < 30%. Complete heart block with 100% pacing, Final/Discharge Diagnosis Successful right-sided BIV ICD implantation Chief Complaint/HPI Chief Complaint/HPI Nonischemic cardiomyopathy, NYHA II-III HF, EF < 30%. Complete heart block with 100% pacing, Previous left sided PPM implant, extracted secondary to infection, Aortic and Mitral valve endocarditis, s/p valve replacement and redo valve again for repeat endocarditis (last year). Discharge Summary Procedures Successful BiV ICD implantation- Right sided. Discharge Physical Examination Device site okay with no hematoma or swelling. Mild discomfort. Normal cardiovascular and respiratory exam. Hospital Course Stable Pending Labs Laboratory Tests 07/29/16 03:26: White Blood Count 13.6, Red Blood Count 4.67, Hemoglobin 14.0, Hematocrit 42, Mean Corpuscular Volume 90, Mean Corpuscular Hemoglobin 30, Mean Corpuscular Hemoglobin Concent 33, Red Cell Distribution Width 13.5, Platelet Count 204, Mean Platelet Volume 10.5, Sodium Level 136, Potassium Level 3.9, Chloride Level 101, Carbon Dioxide Level 24, Anion Gap 11, Blood Urea Nitrogen 20, Creatinine 1.02, Estimat Glomerular Filtration Rate > 60, BUN/Creatinine Ratio 20, Glucose Level 200, Calcium Level 9.8, Total Bilirubin 0.9, Aspartate Amino Transf (AST/SGOT) 18, Alanine Aminotransferase (ALT/SGPT) 22, Alkaline Phosphatase 88, Total Protein 6.9, Albumin 3.7 Radiology Reviewed Chest x-ray: No pneumothorax Discussion & Recommendations Discussion Successful biventricular ICD right-sided implantation. Device interrogation this morning as follows: Atrial lead impedance 456 ohms, threshold 0.25 V at 0.4 ms, sensitivity P-wave 1.9 mV RV lead impedance 456 ohms, RV 42 ohms, SVC is 49 ohms, capture threshold 0.25 V at 0.40 ms. R-wave not measured since the patient is pacemaker dependent. LV impedance 551 ohms. Paced polarity LV 1- LV 2. Capture threshold 0.75 V at 0.4 ms. Discharge took over 30 minutes to complete which included SOAP, discussing with the patient all discharge instructions, discussion with the nurses and doing all the paperwork. Follow up appt.: Dr. Joiner office for wound check in 7 days. Dicharge Diet: Low Sodium Diet Activity as Tolerated: No (as per post-device implantation instructions given) Home Medications Reviewed patient Home Medication Reconciliation Form Discharge Home Medications: Reviewed and agree with Discharge Medication list on patient's Discharge Instruction sheet Condition at discharge Stable Instructions to patient/family Follow-up with Dr. Joiner's office in one week for wound check. Diagnosis/Problems Diagnosis/Problems (1) Nonischemic dilated cardiomyopathy Status: Chronic Clinical Quality Measures DVT/VTE Risk/Contraindication: Risk Factor Score Per Nursin RFS Level Per Nursing on Admit: 1=Low/No VTE PPX Van JOINER MD Jul 29, 2016 10:44
[2016-07-29] MEDS ORDERED: CEFU500T63 PO ×2 (11:22→11:54)
[2016-07-29 12:30] VITALS: BP 150/68
--- NOTE | 2016-07-30 00:37 | ECHOCARDIOGRAPHY REPORT ---
DATE OF SERVICE: 07/28/2016 PROCEDURE: LIMITED 2D ECHOCARDIOGRAM PRIMARY PHYSICIAN: Dr. Dmitriy Hermosillo ORDERING PHYSICIAN: Dr. Neftali Reilly DIAGNOSES: 1. Complete heart block. 2. Nonischemic cardiomyopathy. FINDINGS: 1. Sinus rhythm. 2. Aortic root is normal. 3. Left atrium is mildly enlarged. 4. LV systolic dysfunction is severely reduced. LVEF is 20% to 25%. 5. Global hypokinesis. 6. No significant pericardial effusion. 7. IVC was not visualized. 8. Diastolic evaluation was not performed. 9. Complete evaluation of valves was not performed. CONCLUSION: 1. Severe left ventricular systolic dysfunction with an EF of 20% to 25%. 2. Global hypokinesis. Job ID: [id number] DocumentID: [id number] Dictated Date: 07/29/2016 16:31:43 Weights And Measures Sealer Date: 07/29/2016 18:51:04 Dictated By: CHARITO REILLY MD MTDD
--- NOTE | 2016-07-30 06:28 | OPERATIVE REPORT ---
DATE OF SERVICE: BIVENTRICULAR ICD IMPLANTATION PRIMARY PHYSICIAN: Dr. Dmitriy Hermosillo. PRIMARY CULTURIST: Dr. Rosa Edge. PERFORMING PHYSICIAN: Dr. Reynold Joiner. INDICATION: 1. Nonischemic cardiomyopathy with EF of 20% to 25%. 2. NYHA class II to III heart failure. 3. Complete heart block with 100% RV pacing. PREOPERATIVE DIAGNOSES: 1. Nonischemic cardiomyopathy with ejection fraction of 20% to 25%. 2. Rains Heart Association class II to III heart failure. 3. Complete heart block with 100% right ventricular pacing. POSTOPERATIVE DIAGNOSES: Successful biventricular implantable cardioverter-defibrillator implantation. HISTORY: The patient is a 25-year-old gentleman with complicated medical history. In 2015, he developed aortic and mitral valve endocarditis and was transferred to [facility] in [facility]. Aortic and mitral valve replacements were performed. Apparently, during the same hospitalization, the patient developed a complete heart block, therefore a left-sided dual chamber pacemaker implantation was performed. Subsequently, the patient developed repeat endocarditis as well as a device infection; therefore, the dual chamber pacemaker was explanted as well as redo surgery was performed and another aortic and mitral valve replacement was performed. At this point in time, the patient had an abdominal pacemaker implanted with epicardial leads to the atrium and to the RV. The patient's EF in 2015 was 60%. However, in 02/2016 the patient's EF on an echocardiogram was less than 30%. The patient has been paced 100% in the RV. He has been on optimal medical therapy. In spring of this year, a device interrogation revealed high captured threshold of the abdominal pacemaker; therefore, EP consult was requested. I discussed at length with the patient and since the patient has nonischemic cardiomyopathy with EF of less than 30%, with Rains heart association class II to III heart failure on optimal medical therapy. 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 Therefore, the patient requires cardiac resynchronization therapy with primary prevention for severe systolic dysfunction as well. Therefore, after discussing at length with the patient and primary violin teacher, Dr. Edge, I recommended a BiV-ICD to be implanted via right-sided approach. PROCEDURES PERFORMED: 1. Right-sided biventricular ICD implantation. 2. Central venous access. 3. Fluoroscopy 4. Coronary sinus venogram. COMPLICATION: None. SPECIMENS: None. ANTICOAGULATION: None. ESTIMATED BLOOD LOSS: 30 mL. CONTRAST: 150 mL of Omnipaque. FLUOROSCOPY TIME: 97 minutes. FLUOROSCOPY DOSE: 4448 mGy. PROCEDURE DETAILS: Informed consent was taken before the procedure was started. All the risks and complication were explained in detail which included vascular damage, pneumothorax, cardiac perforation, bleeding, and infection. Once the patient and family accepted all the risks and complication, he was brought to the EP lab. It is also worth mentioning that the patient was given 1 gram of Ancef before the procedure. He was draped and prepped in the usual sterile fashion. A right-sided incision was performed just below the clavicle and dissection was carried down to the pectoralis fascia. Under fluoroscopy guidance, the axillary vein was accessed 3 times and 3 J tip wires were placed via the axillary vein into the IVC. Two of the wires were clamped with a mosquito clamp. We then took a 9-Djiboutian Knee [employer] multipurpose coronary sinus guide catheter and advanced it over a long regular length 0.035 guidewire. Under fluoroscopy guidance and contrast injection, we were able to get close to the coronary sinus. We took a Glidewire and accessed the coronary sinus. Due to his multiple cardiac surgeries, there was distortion in his cardiac anatomy; therefore, it was very difficult to access the coronary sinus, however, we were able to access the coronary sinus with the Glidewire. The Glidewire was placed in the mid part of the coronary CS, and the guide catheter was advanced over the Glidewire into the proximal aspect of the coronary sinus. We then took out the wire and put in an occlusion balloon. The balloon was dilated in the proximal coronary sinus and a coronary sinus venogram was performed in both in POE and IRISH fluoroscopic orientation. The venogram showed that the only reasonable veins are a posterior lateral branch as well as true lateral branch. We therefore chose the posterior lateral branch as our first target for CS lead implantation, so the balloon was deflated and taken out. We then took a 0.014 Whisper wire medium support and tried to access the posterior lateral venous branch of the coronary sinus. However, there was significant tortuosity as well as possible stenosis secondary to previous surgery. Therefore, we were not able to gain access. We took Attain subselector with a 90 degree angle and tried to gain access to the posterior lateral branch, however, we were not able to gain access. We then took that 90 degree Attain subselector out and used a 130 degree Attain subselector. We were still not able to gain access into the posterior lateral branch. At this point in time, further angiograms were performed which did not show any significant posterior vein in the proximal section of the coronary sinus. We took the current subselector out and took a Medtronic Quad CS lead and on top of the Whisper wire, placed it into the coronary sinus, however, we were still not able to access the posterior lateral branch and while advancing the CS lead, the entire system was dislodged. We therefore took the Whisper wire as well as the quadripolar CS lead out of the body and then took the same Glidewire again and with difficulty we were able to gain access again into the coronary sinus. At this point in time, we performed another angiogram and even the posterior lateral branch which we were previously trying to access was not well visualized. We therefore decided to place the CS lead in the true lateral branch. We had taken a new extra support Whisper wire this time along and we took the quadripolar CS lead from Medtronic and advanced it over the Whisper wire and placed it in the mid section of the true lateral vein. Perioperative lead was tested with excellent sensitivity and capture threshold. No diaphragmatic stimulation was noted. At this point in time, we were happy with where the CS lead was placed; therefore, we slit the guide catheter and took it out. However, when we tried to take the Whisper wire out it would not come out and it was stuck within the lead. We tried with significant pulling, but we were unable to take the Whisper wire out. At this point in time, we also called [employer] tech support and their advice was to take the entire lead out. We therefore under fluoroscopic guidance, we did another venous access into the axillary vein and used another guide catheter for the CS. We were again able to gain access into the coronary sinus with some difficulty with the Glidewire. The other implanted CS lead was then taken out of the body. We then took a new quadripolar CS lead. At this time, we took a Choice Floppy 0.014 wire and placed it in the true lateral vein and tracked and advanced the quadripolar Medtronic CS lead into the lateral vein. Lead was tested and showed good sensitivity and capture threshold with no diaphragmatic stimulation. The guide catheter was again slit with the lead still in its original implanted place. The LV lead was then sutured to the pectoralis fascia with 2-0 silk sutures. We then used the next J tip wire in the axillary vein and put a 9-Djiboutian sheath in it. We then took a dual-coil RV ICD lead and advanced it and crossed under fluoroscopic guidance, crossed the tricuspid valve and placed it into the RV apex. The lead screw was deployed under fluoroscopic guidance. The lead was tested perioperatively and showed excellent sensitivity and capture threshold. The sheath was therefore taken out and the lead was sutured to the muscle and pectoralis fascia with 2-0 silk sutures. We then used the third J tip wire and put in a 9-Djiboutian sheath. The wire was taken out and then we took a right atrial lead and advanced it over a straight stylet. The lead was advanced till the distal right atrium. Then the stylet was taken out and a J-tipped stylet was placed. After much difficulty, the RA lead was placed on the lateral wall. In majority of the areas where we tested the RA lead, there was significantly low P-wave amplitude suggesting significant scarring due to previous surgical interventions. Also, in a couple of areas where we had good P wave, a sensitivity of over 3 millivolts, we were not able to capture, however, the interference was due to the abdominal unipolar abdominal pacing through the epicardial leads. We therefore chose another area of interest and deployed the screw under fluoroscopic guidance. The lead was tested in a DDD setting and good sensitivity and capture threshold was confirmed. The RA sheath was taken out and the lead was again sutured to the pectoralis muscle as well as the fascia with 2-0 sutures. We then created a pocket. Once the pocket was created, we flushed it with normal saline. All the 3 leads after confirming, were attached to a BiV-ICD device. The leads were screwed in a hermetic fashion. Perioperative device interrogation was also performed which showed good lead integrities for all 3 leads. The device was placed in the pocket and we used another 2-0 suture to suture it to the pectoralis muscle and fascia. Once the pocket was flushed, we closed the wound in 3 layers. The first layer was 4, 2-0 absorbable sutures which were done in an interrupted fashion. The second layer was uninterrupted suturing of the fascia with a 3-0 absorbable suture. A 4-0 suture was used to close the skin layer in a subcuticular fashion. The skin was cleaned and Steri-strips were placed and a bandage placed on top. The patient tolerated the procedure well and did not have any complication. He was transferred to the cardiac stepdown unit in stable condition. There was a significant reduction in QRS width. Perioperatively, initial paced QRS width was 202 msec. At the end of the procedure, the paced QRS width was around 100 msec. DEVICE INFORMATION: Device is a HYDRODYNAM[employer] PROFESSOR-DTBA 100 Viva Quad XT IS4/DF-4 . Model number, DTBA 1QQ. Serial number, [id number]. [employer] is the equities analyst. LEADS: 1. Right atrium, model number 093438, length 52 cm, serial number [id number]. Medtronic lead placed in the lateral right atrium. 2. Right ventricle lead is also manufactured by Medtronic, model number 5056I83, length 62 cm, serial number [id number] was placed in the RV apex. 3. The LV lead was manufactured by Medtronic. Model number 890607, length 88 cm, serial number [id number], implanted in the lateral vein of the coronary sinus. IMMEDIATE POSTOPERATIVE DEVICE INTERROGATION: Showed the followin. Right atrium, polarity is bipolar. Capture threshold at 0.5 V at 0.5 msec, impedance 513 ohm. P wave sensitivity was 1.3 millivolts. 2. Right ventricle was also bipolar polarity. Capture threshold was 0.5 V at 0.5 msec. Impedance was 475 ohm. R wave sensitivity was not checked due to complete heart block. 3. LV lead polarity was LV1 to LV2. Capture threshold 0.75 V at 0.5 msec. Impedance was 665 ohm. The patient has an abdominal pacemaker, which was programmed to VVI 40. It is a Medtronic pacemaker product number [id number]. Product name is IPG ADDRL1 Adapta L [place] market. Serial number [id number]. It was implanted 12/05/2015. The patient also has 2 epicardial leads. The first lead is product number 5071-35. Serial number [id number]. This was also implanted on 12/05/2015. The second lead is also a pacing epicardial lead, product number 4968-35, serial number [id number]. Implanted 12/05/2015. IMPRESSION AND CONCLUSION: 1. Successful right-sided biventricular ICD placement. 2. The patient will be transferred to the ICU. He will continue on 3 more dosages of IV Ancef. 3. Postoperative EKG will be performed. 4. Chest x-ray will be done to rule out pneumothorax. 5. Device interrogation will be performed again in the morning. Job ID: [id number] DocumentID: [id number] Dictated Date: 07/29/2016 17:05:58 [employer] Date: 07/30/2016 05:13:42 Dictated By: REYNOLD JOINER MD MTDD
== END 2016-07-29 12:30 | disposition home or self-care (01) ==
LOC: CATH 07:44 → ICU 17:45 → ENPENDDIS 07-29 11:00 → CATH 07-29 12:30
PROVIDERS: ATTEND Internal Medicine Interventional Cardiology
DX: I42.9 Cardiomyopathy, unspecified (principal); I44.2 Atrioventricular block, complete; I50.22 Chronic systolic (congestive) heart failure; E11.9 Type 2 diabetes mellitus without complications; Z79.899 Other long term (current) drug therapy; Z79.4 Long term (current) use of insulin; Z95.2 Presence of prosthetic heart valve; Z95.0 Presence of cardiac pacemaker
CPT/HCPCS: 33225; 33249; 36415; 71010; 80053; 85027; 85610; 85730; 87081; 93005; 93308

== ENCOUNTER → 2016-08-22 | Outpatient (CLI) | payer BC, MEDICAID ==
[~2016-08-22] MED LIST changes: +ASPI-983 PO; +CEFU500T63 PO
== END ==
LOC: RAD 11:38
PROVIDERS: ATTEND Internal Medicine Interventional Cardiology
DX: I42.9 Cardiomyopathy, unspecified (principal); I44.2 Atrioventricular block, complete; Z95.0 Presence of cardiac pacemaker
CPT/HCPCS: 71020

== ENCOUNTER 2016-10-25 13:49 | Emergency (ER) | payer BC, MEDICAID ==
[~2016-10-25] VITALS: Ht 190.5 cm; Wt 158.8 kg
[~2016-10-25 13:49] MED LIST changes: -METO-272 PO; +METO-370 PO
[2016-10-25] MEDS ORDERED: INSU100I10 SQ (14:04)
--- NOTE | 2016-10-25 14:35 | ED Abdominal Pain ---
General Chief Complaint: Abdominal/GI Problems Stated Complaint: STOMACH BLOATING/SWELLING-HEART CONDITION Nursing Triage Note: c/o abdomen swelling x 3 days, reports feels like he has a basketball in his belly. denies n/v/d Sepsis Screen: No Definite Risk Source of Information: Patient Exam Limitations: No Limitations (KEZIA SANTOS APRN) History of Present Illness Time Seen By Provider: 14:33 Initial Comments To ER with epigastric abdominal discomfort for 2 days. He's never had this before. He states "it feels like I swallowed a basketball". He also reports having increased shortness of breath over the past 2 days. He is on Lasix unknown how many milligrams every day and has not missed any doses. No ankle swelling. 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 He denies any recent fevers. He denies nausea vomiting constipation diarrhea or dysuria. Timing/Duration: 1-2 Days Severity/Quality: Moderate Location: Epigastric Radiation: No Radiation Activities at Onset: None (KEZIA SANTOS APRN) Allergies and Home Medications Allergies Coded Allergies: topiramate (Verified Allergy, Intermediate, MADE HAIR FALL OUT, 02/10/15) tramadol (Unverified Allergy, Mild, 02/13/09) morphine (Verified Allergy, Unknown, 03/28/16) resp. arrest Home Medications Aspirin 81 Mg Tablet.dr, 81 MG PO DAILY, (Reported) Aspirin 81 Mg Tab.chew, 81 MG PO DAILY, #90 Prescribed by: ASHER MOLINA on 10/25/16 1623 Carvedilol 3.125 Mg Tablet, 3.125 MG PO DAILY, (Reported) LAST FILLED 05/19/16 #60 Famotidine 20 Mg Tablet, 20 MG PO BID, (Reported) Furosemide 40 Mg Tablet, 40 MG PO DAILY, (Reported) Insulin Aspart 300 Units/3 Ml Solution, 7-10 UNITS SQ SLIDING/SCALE, (Reported) Insulin Glargine,Hum.rec.anlog 100 Unit/1 Ml Insuln.pen, (Reported) Polyethylene Glycol 3350 17 Gm Powd.pack, 17 GM PO DAILY PRN, #30 Prescribed by: ASHER MOLINA on 10/25/16 1623 Sacubitril/Valsartan 1 Each Tablet, 1 TAB PO BID, (Reported) Review of Systems Constitutional: see HPI EENTM: No Symptoms Reported Respiratory: See HPI, Orthopnea, Shortness of Air Cardiovascular: Denies Chest Pain, Denies Edema, Denies Palpitations, Denies Syncope Gastrointestinal: See HPI, Denies Nausea Genitourinary: No Symptoms Reported Musculoskeletal: no symptoms reported Skin: no symptoms reported Psychiatric/Neurological: No Symptoms Reported (KEZIA SANTOS APRN) Past Chsmzom-Rkjebz-Vwgcgy Hx Patient Social History Alcohol Use: Occasionally Uses Number of Drinks Today: FF Alcohol Beverage of Choice: Vodka Recreational Drug Use: No Smoking Status: Former Smoker Type Used: Cigarettes Former Smoker, Quit: Jul 25, 2016 Recent Foreign Travel: No Contact w/Someone Who Travel: No Recent Infectious Disease Expo: No Recent Hopitalizations: No (KEZIA SANTOS APRN) Immunizations Up To Date Tetanus Booster (TDap): Unknown PED Vaccines UTD: Yes Date of Pneumonia Vaccine: Dec 08, 2015 Date of Influenza Vaccine: Nov 22, 2015 (KEZIA SANTOS APRN) Seasonal Allergies Seasonal Allergies: Yes (chronic congestion ) (KEZIA SANTOS APRN) Surgeries History of Surgeries: Yes (bovine aortic/mitral valve replacement, hernia) Surgeries: Abdominal, Cardiac, Pacemaker, Testicular, Valve Replacement (KEZIA SANTOS APRN) Respiratory History of Respiratory Disorde: No Currently Using CPAP: No Currently Using BIPAP: No (KEZIA SANTOS APRN) Cardiovascular History of Cardiac Disorders: Yes Cardiac Disorders: Cardiomyopathy, Endocarditis, Hypertension, Valvular Heart Disease (KEZIA SANTOS APRN) Neurological History of Neurological Disord: Yes Neurological Disorders: Neuropathy (KEZIA SANTOS APRN) Reproductive System Hx Reproductive Disorders: No Sexually Transmitted Disease: No HIV/AIDS: No (KEZIA SANTOS APRN) Gastrointestinal History of Gastrointestinal Di: No Gastrointestinal Disorders: Abdominal Hernia, Gastroesophageal Reflux (KEZIA SANTOS APRN) Musculoskeletal History of Musculoskeletal Dis: Yes Musculoskeletal Disorders: Chronic Back Pain (KEZIA SANTOS APRN) Endocrine History of Endocrine Disorders: Yes Endocrine Disorders: Diabetes, Insulin dep (KEZIA SANTOS APRN) HEENT Loss of Vision: Denies Hearing Impairment: Denies (KEZIA SANTOS APRN) Cancer History of Cancer: No (KEZIA SANTOS APRN) Psychosocial History of Psychiatric Problem: Yes Behavioral Health Disorders: ADD/ADHD, Anxiety (KEZIA SANTOS APRN) Integumentary History of Skin or Integumenta: Yes Skin/Integumentary Disorders: Psoriasis (KEZIA SANTOS APRN) Blood Transfusions History of Blood Disorders: Yes (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) Adverse Reaction to a Blood Tr: No (KEZIA SANTOS APRN) Family Medical History Family Medial History: Diabetes mellitus 19 MOTHER Hepatitis C (KEZIA SANTOS APRN) Family Medial History: Diabetes mellitus 19 MOTHER Hepatitis C (ASHER MOLINA MD) Physical Exam Vital Signs VS - Last 72 Hours, by Label 10/25/16 14:00 Temp 98.7 Pulse 84 Resp 18 B/P (MAP) 164/91 Pulse Ox 97 (ASHER MOLINA MD) Vital Signs Capillary Refill : Less Than 3 Seconds (KEZIA SANTOS APRN) General Appearance: WD/WN, no apparent distress HEENT: PERRL/EOMI, normal ENT inspection Neck: non-tender, full range of motion Respiratory: lungs clear, normal breath sounds, no respiratory distress, no accessory muscle use Cardiovascular: regular rate, rhythm, no murmur Gastrointestinal: normal bowel sounds, non tender, soft Extremities: normal range of motion, non-tender Neurologic/Psychiatric: alert, normal mood/affect, oriented x 3 Skin: normal color, warm/dry (KEZIA SANTOS APRN) Back: normal inspection, no CVA tenderness, no vertebral tenderness (ASHER MOLINA MD) Progress/Results/Core Measures Results/Orders Lab Results Laboratory Tests Test 10/25/16 14:25 10/25/16 14:30 Range/Units White Blood Count 11.9 H 4.3-11.0 10^3/uL Red Blood Count 4.78 4.35-5.85 10^6/uL Hemoglobin 14.5 13.3-17.7 G/DL Hematocrit 43 40-54 % Mean Corpuscular Volume 89 80-99 FL Mean Corpuscular Hemoglobin 30 25-34 PG Mean Corpuscular Hemoglobin Concent 34 32-36 G/DL Red Cell Distribution Width 12.7 10.0-14.5 % Platelet Count 270 130-400 10^3/uL Mean Platelet Volume 10.2 7.4-10.4 FL Neutrophils (%) (Auto) 70 42-75 % Lymphocytes (%) (Auto) 21 12-44 % Monocytes (%) (Auto) 6 0-12 % Eosinophils (%) (Auto) 2 0-10 % Basophils (%) (Auto) 0 0-10 % Neutrophils # (Auto) 8.4 H 1.8-7.8 X 10^3 Lymphocytes # (Auto) 2.5 1.0-4.0 X 10^3 Monocytes # (Auto) 0.7 0.0-1.0 X 10^3 Eosinophils # (Auto) 0.3 0.0-0.3 10^3/uL Basophils # (Auto) 0.1 0.0-0.1 10^3/uL Sodium Level 136 135-145 MMOL/L Potassium Level 4.2 3.6-5.0 MMOL/L Chloride Level 100 98-107 MMOL/L Carbon Dioxide Level 24 21-32 MMOL/L Anion Gap 12 5-14 MMOL/L Blood Urea Nitrogen 14 7-18 MG/DL Creatinine 1.14 0.60-1.30 MG/DL Estimat Glomerular Filtration Rate > 60 BUN/Creatinine Ratio 12 Glucose Level 367 H 70-105 MG/DL Calcium Level 10.1 8.5-10.1 MG/DL Total Bilirubin 0.5 0.1-1.0 MG/DL Aspartate Amino Transf (AST/SGOT) 20 5-34 U/L Alanine Aminotransferase (ALT/SGPT) 24 0-55 U/L Alkaline Phosphatase 100 40-136 U/L B-Type Natriuretic Peptide 125.5 H <100.0 PG/ML Total Protein 7.1 6.4-8.2 GM/DL Albumin 3.9 3.2-4.5 GM/DL Lipase 25 8-78 U/L Erythrocyte Sedimentation Rate 10 0-15 MM/HR C-Reactive Protein High Sensitivity 1.60 H 0.00-0.50 MG/DL (ASHER MOLINA MD) My Orders Orders - ASHER MOLINA MD Cbc With Automated Diff (10/25/16 14:29) Comprehensive Metabolic Panel (10/25/16 14:29) BNP (10/25/16 14:29) Ekg Tracing (10/25/16 14:29) Chest Pa/Lat (2 View) (10/25/16 14:29) Ua Culture If Indicated (10/25/16 14:29) Abdomen, Flat & Upright/Decub (10/25/16 14:29) Lipase (10/25/16 14:29) (ASHER MOLINA MD) Medications Given in ED Current Medications Medications Dose Ordered Sig/Kevin Route Start Time Stop Time Status Last Admin Dose Admin Iohexol 100 ml ONCE ONCE IV 10/25/16 15:45 10/25/16 16:03 DC 10/25/16 15:42 100 ML Sodium Chloride 100 ml ONCE ONCE IV 10/25/16 15:45 10/25/16 16:03 DC 10/25/16 15:42 80 ML (ASHER MOLINA MD) Vital Signs/I&O Vital Sign - Last 12Hours 10/25/16 14:00 Temp 98.7 Pulse 84 Resp 18 B/P (MAP) 164/91 Pulse Ox 97 (ASHER MOLINA MD) Blood Pressure Mean: 115 Progress Note : Progress Note I have seen and evaluated the patient and agree with above except as indicated. I agree with the plan of care. I have reviewed the labs and radiological data. No concerning findings currently. Patient does have moderate amount of stool within the colon which may be part of his discomfort. When discussing this with the patient he does state that he did feel like that may be the case. Patient is currently out of aspirin and cannot afford it but believes that he could get this via prescription. I will prescribe this as well as MiraLAX. Discharged home with return precautions. Patient verbalize understanding instructions and agreement with plan. (ASHER MOLINA MD) ECG Initial ECG Impression Date: Oct 25, 2016 Initial ECG Impression Time: 14:50 Initial ECG Rate: 63 Comment Atrial fib/flutter with ventricular paced rhythm. Similar to previous of a July 2016. No evidence of ST elevation [place]. Interpreted by me. (ASHER MOLINA MD) Diagnostic Imaging Diagonstic Imaging: Xray Plain Films/CT/US/NM/MRI: chest Comments NAME: MARION ROSE Van [facility] REC#: [id number] PT STATUS: REG ER : 1990 PHYSICIAN: ASHER MOLINA MD ADMIT DATE: 10/25/16/ER Signed Date of Exam: 10/25/16 CHEST PA/LAT (2 VIEW) INDICATION: Abdominal swelling. PA and lateral chest obtained at 3:00 p.m. There is cardiomegaly and postoperative change with valve replacements. Pacemaker device is unchanged compared to 08/22/2016. There is no acute infiltrate or pneumothorax or pleural fluid. IMPRESSION: Postoperative changes are similar to 08/22/2016. No new infiltrate or pneumothorax or pleural fluid. Dictated by: Dictated on workstation # [id number] Dict: 10/25/16 1450 Trans: 10/25/16 1605 Interpreted by: RACHAEL KOHLER MD Electronically signed by: RACHAEL KOHLER MD 10/25/16 1605 Diagonstic Imaging: Xray Plain Films/CT/US/NM/MRI: abdomen Comments VIA [facility]. [place], [place] NAME: GILLIANAshleyIQRAMARION [facility] REC#: [id number] PT STATUS: REG ER : 1990 PHYSICIAN: ASHER MOLINA MD ADMIT DATE: 10/25/16/ER Draft Date of Exam:10/25/16 ABDOMEN, FLAT & UPRIGHT/DECUB EXAMINATION: Abdominal radiographs, upright and supine. DATE: 10/25/2016. CLINICAL INDICATION: 26-year-old male, abdominal pain and swelling for three days. COMPARISON: CT chest, abdomen, and pelvis 11/25/2015. COMMENTS: There are gas-filled segments of large bowel which are not distended. There are no identified abnormally distended gas-filled segments of bowel. There are metallic coils overlying the left lower quadrant. This may relate to prior hernia repair. There is no identified free intraperitoneal air, pneumatosis, or portal venous gas. There is no identified abnormal radiodensity overlying the expected positions of the kidneys or ureters. There is valvular hardware. There are median sternotomy wires. IMPRESSION: No identified acute abdominal radiographic abnormality. Dictated on workstation # [id number] Dict: 10/25/16 1452 Trans: 10/25/16 1505 [id number] Interpreted by: RED RESTREPO MD Electronically signed by: [place] Imaging: CT Plain Films/CT/US/NM/MRI: abdomen, pelvis Comments VIA [facility]. [place], [place] NAME: MARION ROSE [facility] REC#: [id number] PT STATUS: REG ER : 1990 PHYSICIAN: KEZIA SANTOS ECONOMIC GEOGRAPHER ADMIT DATE: 10/25/16/ER Draft Date of Exam:10/25/16 CT ABDOMEN/PELVIS W PROCEDURE: CT abdomen and pelvis with contrast. TECHNIQUE: Multiple contiguous axial images were obtained through the abdomen and pelvis after administration of intravenous contrast. INDICATION: Bloating and swelling of the abdomen x3 days. COMPARISON: 11/25/2015. FINDINGS: Included portions of the lung bases are moderately obscured secondary to respiratory motion. AICD is noted. Postsurgical changes of previous aortic and mitral valve repair are also present. CT abdomen: Small bowel loops are nondistended. Normal appendix is identified. Liver is diffusely hypodense on this postcontrast exam consistent with background of hepatic steatosis. There is focal cortical thinning involving the posteromedial margins of the left kidney. This corresponds to area of infarct described on previous CT. There is also deformity of the posterior margins of the spleen. This also corresponds to large area of hypodensity seen on prior CT. Otherwise, the liver, spleen, pancreas, and adrenal glands have a normal CT appearance. There is no loculated fluid collection, free fluid, nor free air within the abdomen. No abnormal mesenteric or retroperitoneal adenopathy is seen. Bony structures show no acute abnormalities. CT pelvis: Urinary bladder is grossly unremarkable. There is no loculated fluid collection, free fluid, nor free air within the pelvis. No abnormal lymph nodes are seen. Bony structures show no acute abnormalities. IMPRESSION: 1. No acute abnormalities within the abdomen or pelvis. 2. Hepatic steatosis. 3. Focal cortical thinning of the left kidney consistent with infarct described on prior exam. Dictated on workstation # [id number] Dict: 10/25/16 1557 Trans: 10/25/16 1610 [id number] Interpreted by: DARON ORTIZ MD Electronically signed by: (ASHER MOLINA MD) Departure Impression Impression: Primary Impression: Dyspnea Qualified Codes: R06.02 - Shortness of breath Additional Impression: Nonischemic dilated cardiomyopathy Disposition: HOME, SELF-CARE Condition: Stable Departure-Patient Inst. Decision time for Depature: 16:13 (KEZIA SANTOS APRN) Referrals: GAURANG TERRELL DO (PCP/Family) Primary Care Physician Patient Instructions: Constipation in Adults Add. Discharge Instructions: 1. Follow-up with your regular doctor later this week 2. Return to ER for any concerns or worsening symptoms 3. All discharge instructions reviewed with patient and/or family. Voiced understanding. Scripts Polyethylene Glycol 3350 (Polyethylene Glycol 3350) 17 Gm Powd.pack 17 GM PO DAILY PRN, #30 EACH Prov: ASHER MOLINA MD 10/25/16 Aspirin (Aspirin) 81 Mg Tab.chew 81 MG PO DAILY, #90 TAB Prov: ASHER MOLINA MD 10/25/16 Copy Copies To 1: GAURANG TERRELL DO; Van REILLY MD, PETER J APRN Oct 25, 2016 14:35 ASHER MOLINA MD Oct 25, 2016 16:23
[2016-10-25 14:39] LABS: BASOPHILS # (AUTO) 0.1 10^3/uL (0.0-0.1); BASOPHILS % (AUTO) 0 % (0-10); EOSINOPHILS # (AUTO) 0.3 10^3/uL (0.0-0.3); EOSINOPHILS % (AUTO) 2 % (0-10); LYMPHOCYTES # (AUTO) 2.5 X 10^3 (1.0-4.0); LYMPHOCYTES % (AUTO) 21 % (12-44); MEAN CORPUSCULAR HEMOGLOBIN 30 PG (25-34); MEAN CORPUSCULAR HGB CONC 34 G/DL (32-36); MEAN CORPUSCULAR VOLUME 89 FL (80-99); MEAN PLATELET VOLUME 10.2 FL (7.4-10.4); MONOCYTES # (AUTO) 0.7 X 10^3 (0.0-1.0); MONOCYTES % (AUTO) 6 % (0-12); NEUTROPHILS # (AUTO) 8.4 X 10^3 (1.8-7.8); NEUTROPHILS % (AUTO) 70 % (42-75); PLATELET COUNT 270 10^3/uL (130-400); RED BLOOD COUNT 4.78 10^6/uL (4.35-5.85); RED CELL DISTRIBUTION WIDTH 12.7 % (10.0-14.5); WHITE BLOOD COUNT 11.9 10^3/uL (4.3-11.0)
--- NOTE | 2016-10-25 14:55 | Diagnostic Imaging Report ---
INDICATION: Abdominal swelling. PA and lateral chest obtained at 3:00 p.m. There is cardiomegaly and postoperative change with valve replacements. Pacemaker device is unchanged compared to 08/22/2016. There is no acute infiltrate or pneumothorax or pleural fluid. IMPRESSION: Postoperative changes are similar to 08/22/2016. No new infiltrate or pneumothorax or pleural fluid. Dictated by: Dictated on workstation # [id number]
[2016-10-25 14:57] LABS: ALANINE AMINOTRANSFERASE 24 U/L (0-55); ALBUMIN 3.9 GM/DL (3.2-4.5); ANION GAP 12 MMOL/L (5-14); ASPARTATE AMINO TRANSFERASE 20 U/L (5-34); BILIRUBIN,TOTAL 0.5 MG/DL (0.1-1.0); BLOOD UREA NITROGEN 14 MG/DL (7-18); BUN/CREATININE RATIO 12; CALCIUM 10.1 MG/DL (8.5-10.1); CARBON DIOXIDE 24 MMOL/L (21-32); CHLORIDE 100 MMOL/L (98-107); CREATININE SERUM 1.14 MG/DL (0.60-1.30); GFR ESTIMATED > 60; GLUCOSE 367 MG/DL (70-105); LIPASE 25 U/L (8-78); POTASSIUM 4.2 MMOL/L (3.6-5.0); SODIUM 136 MMOL/L (135-145); TOTAL PROTEIN 7.1 GM/DL (6.4-8.2)
--- NOTE | 2016-10-25 15:05 | Diagnostic Imaging Report ---
EXAMINATION: Abdominal radiographs, upright and supine. DATE: 10/25/2016. CLINICAL INDICATION: 26-year-old male, abdominal pain and swelling for three days. COMPARISON: CT chest, abdomen, and pelvis 11/25/2015. COMMENTS: There are gas-filled segments of large bowel which are not distended. There are no identified abnormally distended gas-filled segments of bowel. There are metallic coils overlying the left lower quadrant. This may relate to prior hernia repair. There is no identified free intraperitoneal air, pneumatosis, or portal venous gas. There is no identified abnormal radiodensity overlying the expected positions of the kidneys or ureters. There is valvular hardware. There are median sternotomy wires. IMPRESSION: No identified acute abdominal radiographic abnormality. Dictated by: Dictated on workstation # [id number]
[2016-10-25] MEDS ORDERED: NS 100 ML (IVPB) BAG IV ONE (15:45)
[2016-10-25] MEDS ORDERED: IOHEXOL 350 MG/ML 100 ML (OMNIPAQUE 350) VIAL IV ONE (15:45)
--- NOTE | 2016-10-25 16:10 | Diagnostic Imaging Report ---
PROCEDURE: CT abdomen and pelvis with contrast. TECHNIQUE: Multiple contiguous axial images were obtained through the abdomen and pelvis after administration of intravenous contrast. INDICATION: Bloating and swelling of the abdomen x3 days. COMPARISON: 11/25/2015. FINDINGS: Included portions of the lung bases are moderately obscured secondary to respiratory motion. AICD is noted. Postsurgical changes of previous aortic and mitral valve repair are also present. CT abdomen: Small bowel loops are nondistended. Normal appendix is identified. Liver is diffusely hypodense on this postcontrast exam consistent with background of hepatic steatosis. There is focal cortical thinning involving the posteromedial margins of the left kidney. This corresponds to area of infarct described on previous CT. There is also deformity of the posterior margins of the spleen. This also corresponds to large area of hypodensity seen on prior CT. Otherwise, the liver, spleen, pancreas, and adrenal glands have a normal CT appearance. There is no loculated fluid collection, free fluid, nor free air within the abdomen. No abnormal mesenteric or retroperitoneal adenopathy is seen. Bony structures show no acute abnormalities. CT pelvis: Urinary bladder is grossly unremarkable. There is no loculated fluid collection, free fluid, nor free air within the pelvis. No abnormal lymph nodes are seen. Bony structures show no acute abnormalities. IMPRESSION: 1. No acute abnormalities within the abdomen or pelvis. 2. Hepatic steatosis. 3. Focal cortical thinning of the left kidney consistent with infarct described on prior exam. Dictated by: Dictated on workstation # [id number]
[2016-10-25] MEDS ORDERED: ASPI-999 PO (16:23)
[2016-10-25] MEDS ORDERED: POLY17PO23 PO (16:23)
[2016-10-25 16:35] VITALS: BP 164/91
[2016-12-01] MEDS ORDERED: METO-370 PO (09:44)
== END 2016-10-25 16:34 | disposition home or self-care (01) ==
LOC: EDUNIT# 13:49 → ER 13:50
DX: I42.0 Dilated cardiomyopathy (principal); I10 Essential (primary) hypertension; E11.9 Type 2 diabetes mellitus without complications; F90.9 Attention-deficit hyperactivity disorder, unspecified type; F41.9 Anxiety disorder, unspecified; K21.9 Gastro-esophageal reflux disease without esophagitis; Z87.19 Personal history of other diseases of the digestive system; Z79.82 Long term (current) use of aspirin; Z79.4 Long term (current) use of insulin; Z87.891 Personal history of nicotine dependence; Z95.2 Presence of prosthetic heart valve; Z95.0 Presence of cardiac pacemaker
CPT/HCPCS: 36415; 71020; 74020; 74177; 80053; 83690; 83880; 85025; 85652; 86141; 93005

== ENCOUNTER 2016-12-01 09:22 | Outpatient (CLI) | payer BC, MEDICAID ==
[~2016-12-01] VITALS: Ht 190.5 cm; Wt 164.7 kg
[~2016-12-01 09:22] MED LIST changes: +ASPI-999 PO; +INSU100I10 SQ; +METO-272 PO; -METO-370 PO; +POLY17PO23 PO
[2016-12-01] MEDS ORDERED: APIX5TAB PO (09:44)
[2016-12-01] MEDS ORDERED: LORA1TAB PO (09:44)
[2016-12-01] MEDS ORDERED: METO-272 PO (09:44)
[2016-12-01] MEDS ORDERED: METF-478 PO (09:44)
[2016-12-01 09:50] VITALS: BP 120/68
[2016-12-01 10:49] LABS: ANION GAP 11 MMOL/L (5-14); BLOOD UREA NITROGEN 16 MG/DL (7-18); BUN/CREATININE RATIO 14; CALCIUM 9.8 MG/DL (8.5-10.1); CARBON DIOXIDE 23 MMOL/L (21-32); CHLORIDE 101 MMOL/L (98-107); CREATININE SERUM 1.13 MG/DL (0.60-1.30); GFR ESTIMATED > 60; GLUCOSE 256 MG/DL (70-105); POTASSIUM 3.8 MMOL/L (3.6-5.0); SODIUM 135 MMOL/L (135-145)
== END 2016-12-01 12:47 | disposition home or self-care (01) ==
LOC: PREOP 09:22
PROVIDERS: ATTEND Surgery
DX: Z01.812 Encounter for preprocedural laboratory examination (principal); I35.9 Nonrheumatic aortic valve disorder, unspecified
CPT/HCPCS: 36415; 80048; 87081

== ENCOUNTER 2016-12-08 07:30 | Day surgery (SDC) | payer BC, MEDICAID ==
[~2016-12-08] VITALS: Ht 190.5 cm; Wt 164.7 kg
[~2016-12-08 07:30] MED LIST changes: +APIX5TAB PO; +METF-478 PO
[2016-12-08] MEDS ORDERED: ceFAZolin 2 GM/NS 50 ML IV ONE (07:45)
[2016-12-08] MEDS ORDERED: LACTATED RINGERS 1,000 ML IV PRN ×2 (08:02→08:52)
[2016-12-08] MEDS ORDERED: BUPIVACAINE 0.5% 30 ML (SENSORCAINE) VIAL ONE (08:05)
[2016-12-08] MEDS ORDERED: LIDOCAINE 1% INJ 20 ML (XYLOCAINE) VIAL ONE (08:05)
[2016-12-08] MEDS ORDERED: MIDAZOLAM 2 MG/2 ML (VERSED) VIAL ONE ×3 (08:10→09:51)
[2016-12-08] MEDS ORDERED: proPOfol 200 MG/20 ML (DIPRIVAN) VIAL IV ONE ×2 (08:10→09:48)
[2016-12-08] MEDS ORDERED: KETAMINE HCL 100 MG/ML 5 ML VIAL ONE (08:10)
[2016-12-08 08:20] VITALS: BP 124/79
--- NOTE | 2016-12-08 08:46 | Progress Note-Pre Operative ---
Pre-Operative Progress Note H&P Reviewed The H&P was reviewed, patient examined and no changes noted. Date Seen by Provider: Dec 08, 2016 Time Seen by Provider: 08:44 Date H&P Reviewed: Dec 08, 2016 Time H&P Reviewed: 08:44 Pre-Operative Diagnosis: foreign body-abdominal pacemaker PITA VELASQUEZ DO Dec 08, 2016 08:46
[2016-12-08] MEDS ORDERED: ceFAZolin 1,000 MG (ANCEF) VIAL ONE (09:41)
[2016-12-08] MEDS ORDERED: ONDANSETRON 4 MG/2 ML (SDV) Z0FRAN ONE (09:57)
--- NOTE | 2016-12-08 10:28 | Progress Note-Post Operative ---
Post-Operative Progess Note Surgeon (s)/Surgical Resident (s) Surgeon PITA VELASQUEZ DO Surgical Resident: Dr. Joiner Pre-Operative Diagnosis foreign body-abdominal pacemaker Post-Operative Diagnosis same Procedure & Operative Findings Date of Procedure 12/08/16 Procedure Performed/Findings excision of foreign body (abdominal pacemaker) subcutaneous layer Anesthesia Type mac Estimated Blood Loss Estimated blood loss (mL): min Specimens/Packing Specimens Removed na PITA VELASQUEZ DO Dec 08, 2016 10:28
[2016-12-08] MEDS ORDERED: ONDANSETRON 4 MG/2 ML (SDV) Z0FRAN IVP PRN (10:30)
[2016-12-08] MEDS ORDERED: fentaNYL INJECTION 100 MCG/2 ML AMP IVP PRN (10:30)
[2016-12-08] MEDS ORDERED: CEPH-507 PO (10:30)
--- NOTE | 2016-12-08 10:31 | Discharge Inst-Simple/Standard ---
Discharge Inst-Standard Discharge Medications New, Converted or Re-Newed RX: RX on Chart Patient Instructions/Follow Up Plan of Care/Instructions/FU: Dr. Joiner [address] Redman 2 weeks. Activity as Tolerated: No Discharge Diet: Regular Diet Other Inst to Patient Follow up Appt: Make appointment for Dr. Joiner [address] Redman 2 weeks. Instructions: No lifting greater than 10 pounds. No strenuous activity. May shower in 24 hours, no tub bath or soaking. Use incentive spirometer at home as directed. No Smoking Skin/Wound Care: You have special glue over incision it will fall off on its own. Symptoms to Report: Appetite Changes, Extremity Discoloration, Numbness/Tingling, Swelling Increased , Bleeding Excessive, Eyesight Changes, Pain Increased, Urine Color Change, Constipation(Persistent), Fever over 101 degree F, Pain/Pressure in chest, Urinating Difficulty, Cough Up/Vomit Blood, Heart Beat Irreg/Pounding, Pain/ Pressure in jaw, Vaginal Bleeding Increase, Cramps in feet or legs, Lightheadedness, Pain/Pressure in shoulder, Diarrhea(Persistent), Memory Changes Suddenly, Questions/Concerns, Weight gain consecutive days, Dizziness/ Fainting, Nausea/Vomiting, Shortness of Breath, Weight gain over 2 pounds If questions or concerns contact your physician Or seek help at emergency department. PITA REDMAN DO Dec 08, 2016 10:31
[2016-12-08 11:00] VITALS: BP 105/55
[2016-12-08] MEDS ORDERED: ceFAZolin INJECTION 1,000 MG in NS (IVPB) 50 ML IV ONE (11:00)
[2016-12-08 11:30] VITALS: BP 110/64
[2016-12-08] MEDS ORDERED: HYDROcodone/APAP 5 MG/325 MG (LORTAB) TAB PO ONE (11:30)
--- NOTE | 2016-12-09 00:06 | OPERATIVE REPORT ---
DATE OF SERVICE: 12/08/2016 PREOPERATIVE DIAGNOSIS: Foreign body subcutaneous layer abdominal pacemaker. POSTOPERATIVE DIAGNOSIS: Foreign body subcutaneous layer abdominal pacemaker. PROCEDURE: Excision of foreign body (abdominal pacemaker subcutaneous layer). SURGEON: Pita Redman DO SHEET HEATER: Dr. Joiner for capping, see his dictation. ANESTHESIA: MAC with local. ESTIMATED BLOOD LOSS: Minimal. COMPLICATIONS: None. INDICATIONS FOR PROCEDURE: The patient is a 26-year-old male with abdominal pacemaker. He has a lot of pain and discomfort at the site in the abdomen where this has been placed. He already has a new device in the right upper chest. He understands risks and benefits of having this removed, even the leads capped. He wishes to proceed with the procedure. Consent was signed in the chart. DESCRIPTION OF PROCEDURE: The patient was taken to the operating suite, was prepped and draped in a sterile fashion. Surgical pause was performed. Local anesthetic of 0.5% Marcaine and 1% lidocaine 50:50 ratio was used to anesthetize the area. A #15 blade scalpel was used to make an incision and dissect down towards the pacemaker, which was then palpated. The fibrosed tissue around it was then opened and the device was brought up through the incision. Dr. Joiner removed the leads and capped them. The wound was then irrigated with copious amounts of irrigation and the leads were placed back into the subcutaneous layer capped. The subcutaneous tissues were then reapproximated using 3-0 Vicryl. The skin was then closed using 4-0 Vicryl in a running subcuticular fashion. The skin was then washed and dried. Dermabond was placed over the skin incision. The patient tolerated the procedure well without any complications. He was taken to the recovery room in stable condition. Job ID: [id number] DocumentID: [id number] Dictated Date: 12/08/2016 12:22:23 Certified Marine Mechanic Date: 12/08/2016 16:50:46 Dictated By: PITA REDMAN DO
== END 2016-12-08 11:55 | disposition home or self-care (01) ==
LOC: SURG 07:30 → 4TH 07:30 → SDC 07:30 → EDSTATUS 09:30 → SDC 11:55
PROVIDERS: ATTEND Surgery
DX: T82.847A Pain due to cardiac prosthetic devices, implants and grafts, initial encounter (principal); I11.0 Hypertensive heart disease with heart failure; I50.9 Heart failure, unspecified; E11.43 Type 2 diabetes mellitus with diabetic autonomic (poly)neuropathy; F41.9 Anxiety disorder, unspecified; F90.9 Attention-deficit hyperactivity disorder, unspecified type; E66.9 Obesity, unspecified; Z68.42 Body mass index [BMI] 45.0-49.9, adult; Z95.2 Presence of prosthetic heart valve; Z95.810 Presence of automatic (implantable) cardiac defibrillator; Z79.01 Long term (current) use of anticoagulants; Z79.4 Long term (current) use of insulin
CPT/HCPCS: 82962; 94664

== ENCOUNTER → 2017-01-19 | Outpatient (CLI) | payer BC, MEDICAID ==
[~2017-01-19] MED LIST changes: +CEPH-507 PO; -METO-272 PO; +METO-370 PO
== END ==
LOC: CARD 10:33
PROVIDERS: ATTEND Internal Medicine Interventional Cardiology
DX: I48.91 Unspecified atrial fibrillation (principal); I44.2 Atrioventricular block, complete; I42.9 Cardiomyopathy, unspecified
CPT/HCPCS: 93306

== ENCOUNTER → 2017-01-26 | Day surgery (SDC) | payer BC, MEDICAID ==
[~2017-01-26] VITALS: Ht 190.5 cm; Wt 158.8 kg
[2017-01-26] VITALS (14 sets, daily range): BP systolic 132–161; BP diastolic 64–106
[~2017-01-26] MED LIST changes: +FLUMAZENIL (ROMAZICON) 0.1 MG/ML 5 ML VIAL ONE; +INFLUENZA TRIvalent 2017-2018 0.5 ML/45 MCG SYR IM ONE; +LIDOCAINE 2% VISCOUS 15 ML UDC ONE; +LIDOCAINE 2% VISCOUS 15 ML UDC PO ONE; +LORA10CA PO; +MIDAZOLAM 2 MG/2 ML (VERSED) VIAL ONE; +NS IV 1000 ML 1,000 ML IV SCH; +NS IV 1000 ML 1,000 ML ONE; +RIVA20TA PO; +proPOfol 200 MG/20 ML (DIPRIVAN) VIAL IV ONE
[2017-01-26 08:19] LABS: MEAN PLATELET VOLUME 10.6 FL (7.4-10.4); RED BLOOD COUNT 4.97 10^6/uL (4.35-5.85); RED CELL DISTRIBUTION WIDTH 12.8 % (10.0-14.5); WHITE BLOOD COUNT 12.7 10^3/uL (4.3-11.0)
[2017-01-26 08:27] LABS: INR 1.3 (0.8-1.4); PROTHROMBIN TIME PATIENT 16.4 SEC (12.2-14.7)
[2017-01-26 09:15] LABS: ALANINE AMINOTRANSFERASE 29 U/L (0-55); ALBUMIN 3.8 GM/DL (3.2-4.5); ANION GAP 9 MMOL/L (5-14); ASPARTATE AMINO TRANSFERASE 23 U/L (5-34); BILIRUBIN,TOTAL 0.8 MG/DL (0.1-1.0); BLOOD UREA NITROGEN 12 MG/DL (7-18); BUN/CREATININE RATIO 11; CALCIUM 9.1 MG/DL (8.5-10.1); CARBON DIOXIDE 24 MMOL/L (21-32); CHLORIDE 101 MMOL/L (98-107); CREATININE SERUM 1.13 MG/DL (0.60-1.30); GFR ESTIMATED > 60; GLUCOSE 237 MG/DL (70-105); POTASSIUM 3.8 MMOL/L (3.6-5.0); SODIUM 134 MMOL/L (135-145); TOTAL PROTEIN 6.9 GM/DL (6.4-8.2)
--- NOTE | 2017-01-26 10:35 | Cardiac Procedure Note ---
Cardiology Procedures Date of Procedure 01/26/17 [id number] Called to heart center room 1 for RADHA/Cardioversion. Patient's history reviewed as well as drug allergies. Versed 2 IV given prior to physician arriving. Upon arrival, another 2 mg versed IV given as well as a slow push of propofol. A total of 180mg Propofol IV given over course of RADHA. Upon completion of RADHA, patient awakened and was conversing appropriately with staff. Another 40mg IV Propofol given prior to cardioversion which was completed at 1022. Patient converted to NSR. EKG obtained. Patients etcO2 remains 30-33 with SaO2 > 94% and NIBP within pre-sedation range. I reported off to Vero Sy RN. We will be available for further consultation if needed. CLARITA PEREZ CRNA Jan 26, 2017 10:35
--- NOTE | 2017-01-26 14:02 | OPERATIVE REPORT ---
DATE OF SERVICE: 01/26/2017 REPORT TITLE: DIRECT EXTERNAL ELECTRICAL CARDIOVERSION PRIMARY PHYSICIAN: Dmitriy Hermosillo DO PERFORMING PHYSICIAN: Dr. Dottie Reilly. INDICATION: Atrial fibrillation with rapid ventricular rate. PROCEDURE IN DETAIL: The patient was brought to the echo lab after informed consent was taken. All the risks and complications were explained including the risk of stroke. A transesophageal echocardiogram was performed, which did not show any LV, left atrial or left atrial appendage thrombus. A direct external cardioversion was performed with anesthesia support. It was a synchronized 200 joule single shock converted the patient to atrial paced and ventricular paced rhythm. The patient did not have any neurological complication. IMPRESSION AND CONCLUSION: 1. Continue Xarelto for anticoagulation. 2. Follow up in the cardiology office in 1 week. 3. Continue the rest of the medication. 4. RADHA showed no cardiac thrombus, successful external cardioversion. Job ID: [id number] DocumentID: [id number] Dictated Date: 01/26/2017 11:04:31 Cotton Tipper Date: 01/26/2017 14:02:13 Dictated By: CHARITO REILLY MD
== END | disposition home or self-care (01) ==
LOC: CATH 07:50
PROVIDERS: ATTEND Internal Medicine Interventional Cardiology
DX: I48.0 Paroxysmal atrial fibrillation (principal); I44.2 Atrioventricular block, complete; I11.0 Hypertensive heart disease with heart failure; I50.22 Chronic systolic (congestive) heart failure; E11.9 Type 2 diabetes mellitus without complications; F41.9 Anxiety disorder, unspecified; F90.9 Attention-deficit hyperactivity disorder, unspecified type; E66.01 Morbid (severe) obesity due to excess calories; Z68.41 Body mass index [BMI] 40.0-44.9, adult; Z79.01 Long term (current) use of anticoagulants; Z79.899 Other long term (current) drug therapy; Z79.4 Long term (current) use of insulin; Z95.2 Presence of prosthetic heart valve; Z95.810 Presence of automatic (implantable) cardiac defibrillator
CPT/HCPCS: 36415; 80053; 85027; 85610; 85730; 87081; 92960; 93005; 93320; 93325

== ENCOUNTER → 2017-11-07 | Outpatient (CLI) | payer MEDICAID ==
[~2017-11-07] MED LIST changes: +ACHD5005 PO; -CEFT1VIA58 IJ; +CFTR1V IJ; -FLUMAZENIL (ROMAZICON) 0.1 MG/ML 5 ML VIAL ONE; -HYDR-3812 PO; -INFLUENZA TRIvalent 2017-2018 0.5 ML/45 MCG SYR IM ONE; -LIDOCAINE 2% VISCOUS 15 ML UDC ONE; -LIDOCAINE 2% VISCOUS 15 ML UDC PO ONE; +METF-399 PO; -METF1000 PO; -MIDAZOLAM 2 MG/2 ML (VERSED) VIAL ONE; -NS IV 1000 ML 1,000 ML IV SCH; -NS IV 1000 ML 1,000 ML ONE; -SPIR25TA3 PO; +SPIR25TA5 PO; -proPOfol 200 MG/20 ML (DIPRIVAN) VIAL IV ONE
== END ==
LOC: CARD 10:19
PROVIDERS: ATTEND Internal Medicine Cardiovascular Disease
DX: I44.2 Atrioventricular block, complete (principal); I50.41 Acute combined systolic (congestive) and diastolic (congestive) heart failure; I11.0 Hypertensive heart disease with heart failure; E66.01 Morbid (severe) obesity due to excess calories; E13.9 Other specified diabetes mellitus without complications; Z95.2 Presence of prosthetic heart valve
CPT/HCPCS: 93306

== ENCOUNTER 2018-03-14 19:34 | Emergency (ER) | payer MEDICARE, MEDICAID ==
[~2018-03-14] VITALS: Ht 188 cm; Wt 158.8 kg
[~2018-03-14 19:34] MED LIST changes: -GABA600T2 PO; +GBPN600T PO; -POLY17PO23 PO; +POLY17PO31 PO
[2018-03-14] MEDS ORDERED: TRIM/SULFAMETH 160/800 (SEPTRA DS) TAB PO ONE (20:30)
[2018-03-14] MEDS ORDERED: DEXAMETHASONE 10 MG/ML (DECADRON) 1 ML VIAL IM ONE (20:30)
[2018-03-14] MEDS ORDERED: CEPHALEXIN 250 MG (KEFLEX) CAP PO ONE (20:30)
--- NOTE | 2018-03-14 20:35 | ED Integumentary General ---
General Chief Complaint: Skin/Wound Problems Stated Complaint: ABSCESS ON BUTTOCKS Nursing Triage Note: PT STATES HE WOKE UP WITH A "CYST" THE SIZE OF A GOLF BALL THIS AM, IS NOW THE SIZE OF A BASEBALL. Source: patient Exam Limitations: no limitations History of Present Illness Date Seen by Provider: Mar 14, 2018 Time Seen by Provider: 20:30 Initial Comments To ER by private vehicle from home with reports of an abscess to the left buttocks since this morning. Since he awakened its gotten quite a bit larger throughout the course of the day. No systemic complaints such as fevers chills nausea or vomiting. Unsure what caused this, it somewhat tender and itchy. Never had this before. He is scheduled to see Dr. TERRELL tomorrow. Timing/Duration: just prior to arrival Severity: moderate Location: generalized (left buttock) Possible Cause: no cause identified Associated Symptoms: denies symptoms Allergies and Home Medications Allergies Coded Allergies: morphine (Verified Allergy, Severe, RESP ARREST, 03/14/18) topiramate (Verified Allergy, Intermediate, MADE HAIR FALL OUT, 03/14/18) tramadol (Unverified Allergy, Mild, 03/14/18) Home Medications Famotidine 20 Mg Tablet, 20 MG PO BID, (Reported) Furosemide 40 Mg Tablet, 40 MG PO DAILY, (Reported) Insulin Aspart 300 Units/3 Ml Solution, 7-10 UNITS SQ SLIDING/SCALE TID, ( Reported) Insulin Glargine,Hum.rec.anlog 100 Unit/1 Ml Insuln.pen, 20 UNIT SQ HS, ( Reported) Loratadine 10 Mg Capsule, 10 MG PO DAILY, (Reported) Metformin HCl 500 Mg Tab.er.24, 1,000 MG PO BID, (Reported) Metoprolol Succinate 50 Mg Tab.er.24h, 50 MG PO BID, (Reported) Polyethylene Glycol 3350 17 Gm Powd.pack, 17 GM PO DAILY PRN for CONSTIPATION- 1ST LINE, (Reported) Rivaroxaban 20 Mg Tablet, 20 MG PO HS, (Reported) Sacubitril/Valsartan 1 Each Tablet, 1 TAB PO BID, (Reported) Patient Home Medication List Home Medication List Reviewed: Yes Review of Systems Review of Systems Constitutional: see HPI EENTM: see HPI Respiratory: no symptoms reported Cardiovascular: no symptoms reported Genitourinary: no symptoms reported Musculoskeletal: no symptoms reported Skin: see HPI Psychiatric/Neurological: No Symptoms Reported Endocrine: No Symptoms Reported Hematologic/Lymphatic: No Symptoms Reported Past Gixjbwa-Thxywh-Xtgcrk Hx Patient Social History Alcohol Use: Rarely Uses Number of Drinks Today: FF Alcohol Beverage of Choice: Vodka Recreational Drug Use: No Type Used: Cigarettes Former Smoker, Quit: June 26, 2016 Recent Foreign Travel: No Contact w/Someone Who Travel: No Recent Infectious Disease Expo: No Recent Hopitalizations: No Immunizations Up To Date Tetanus Booster (TDap): Unknown PED Vaccines UTD: Yes Date of Pneumonia Vaccine: Dec 08, 2015 Date of Influenza Vaccine: Nov 22, 2015 Seasonal Allergies Seasonal Allergies: Yes (chronic congestion ) Past Medical History Surgeries: Yes (bovine aortic/mitral valve replacement X2, hernia) Abdominal, Cardiac, Pacemaker, Testicular, Valve Replacement Respiratory: No Currently Using CPAP: No Currently Using BIPAP: No Cardiac: Yes (has bi v pacemaker) Cardiomyopathy, Endocarditis, Hypertension, Valvular Heart Disease Neurological: Yes (STARTED AFTER 2ND HEART SURGERY) Neuropathy Reproductive Disorders: No Sexually Transmitted Disease: No HIV/AIDS: No Gastrointestinal: Yes Gastroesophageal Reflux Musculoskeletal: Yes Chronic Back Pain Endocrine: Yes (WILL FORGET LANTUS SOMETIMES) Diabetes, Insulin dep Loss of Vision: Denies Hearing Impairment: Denies Cancer: No Psychosocial: Yes ADD/ADHD, Anxiety Integumentary: Yes Psoriasis Blood Disorders: Yes (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) Adverse Reaction/Blood Tranf: No (HAS HAD BLOOD WITH NO REACTION) Family Medical History Diabetes mellitus 19 MOTHER Hepatitis C Physical Exam Vital Signs Vital Signs - First Documented 03/14/18 20:22 Temp 98.1 Pulse 89 Resp 12 B/P (MAP) 162/82 (108) Pulse Ox 97 Capillary Refill : Less Than 3 Seconds General Appearance: WD/WN, no apparent distress HEENT: PERRL/EOMI, normal ENT inspection Neck: non-tender, full range of motion Respiratory: no respiratory distress, no accessory muscle use Neurologic/Psychiatric: alert, normal mood/affect, oriented x 3 Skin: normal color, warm/dry Skin Problem Location: other (to the left buttocks is an approximately 8-10 cm circular area of induration. At the most inferior aspect of this is a circular area of erythema about the size of a neck all. However the skin overlying the rest of the indurated firm area is normal in appearance without ecchymosis or erythema. There is no fluctuance to any part of this to suggest fluid collection or drainable abscess. There is no lymphangitis) Progress/Results/Core Measures Results/Orders My Orders Orders - KEZIA ASNTOS APRN Dexamethasone Injection (Decadron Inject (03/14/18 20:30) Cephalexin Capsule (Keflex Capsule) (03/14/18 20:30) Sulfamethoxazole/Trimet Ds Tab (Bactrim (03/14/18 20:30) Vital Signs/I&O 03/14/18 20:22 Temp 98.1 Pulse 89 Resp 12 B/P (MAP) 162/82 (108) Pulse Ox 97 Blood Pressure Mean: 108 Departure Communication (Admissions) . Differential would be soft tissue infection with induration or localized allergic reaction to some unknown antigen. Impression Primary Impression: Induration of skin Disposition: HOME, SELF-CARE Condition: Stable Departure-Patient Inst. Decision time for Depature: 20:33 Referrals: GAURANG TERRELL DO (PCP/Family) Primary Care Physician Patient Instructions: Wound Care (DC) Add. Discharge Instructions: 1. This may represent either infection or allergic response to an unknown allergen. If this itches you may take a Benadryl. He may apply topical hydrocortisone cream to this. Take the antibiotics as directed. Keep your appointment with Dr. Terrell tomorrow. Return to ER for any concerns. All discharge instructions reviewed with patient and/or family. Voiced understanding. Scripts Cephalexin (Keflex) 500 Mg Capsule 500 MG PO TID, #21 CAP Prov: KEZIA SANTOS APRN 03/14/18 Sulfamethoxazole/Trimethoprim (Bactrim Ds Tablet) 1 Each Tablet 1 EACH PO BID, #14 TAB Prov: KEZIA SANTOS APRN 03/14/18 KEZIA SANTOS APRN Mar 14, 2018 20:35
[2018-03-14] MEDS ORDERED: SULF1TAB35 PO (20:36)
[2018-03-14] MEDS ORDERED: CEPH-507 PO (20:36)
[2018-03-14 20:55] VITALS: BP 154/90
== END 2018-03-14 20:55 | disposition home or self-care (01) ==
LOC: EDUNIT# 19:34 → ER 19:35
DX: R23.4 Changes in skin texture (principal); L02.31 Cutaneous abscess of buttock; I42.9 Cardiomyopathy, unspecified; I10 Essential (primary) hypertension; K21.9 Gastro-esophageal reflux disease without esophagitis; E11.9 Type 2 diabetes mellitus without complications; F98.8 Other specified behavioral and emotional disorders with onset usually occurring in childhood and adolescence; F90.9 Attention-deficit hyperactivity disorder, unspecified type; Z88.5 Allergy status to narcotic agent; Z88.6 Allergy status to analgesic agent; Z88.8 Allergy status to other drugs, medicaments and biological substances; Z79.4 Long term (current) use of insulin; Z79.01 Long term (current) use of anticoagulants; Z87.891 Personal history of nicotine dependence; Z95.0 Presence of cardiac pacemaker; Z98.890 Other specified postprocedural states
CPT/HCPCS: 99284

== ENCOUNTER 2018-04-01 08:38 | Inpatient (IN) | payer MEDICARE, MEDICAID ==
[~2018-04-01] VITALS: Ht 188 cm; Wt 158.8 kg
[~2018-04-01 08:38] MED LIST changes: +SULF1TAB35 PO
[2018-04-01] MEDS ORDERED: LIDOCAINE 1% INJ 20 ML 20 ML VIAL ONE (08:57)
[2018-04-01] MEDS ORDERED: cefTRIAXone FOR IV USE 2,000 MG in WATER (STERILE) FOR INJECTION 20 ML IV ONE (09:15)
--- NOTE | 2018-04-01 09:18 | ED Integumentary General ---
General Chief Complaint: Skin/Wound Problems Stated Complaint: CYST ON GENITAL AREA,NAUSEA Source: patient Exam Limitations: no limitations History of Present Illness Date Seen by Provider: Apr 01, 2018 Time Seen by Provider: 09:13 Initial Comments This 27-year-old diabetic with a history of recurrent endocarditis presents with an abscess to the peroneal area that began yesterday. The patient has attempted to self express the abscess without significant success. The patient denies associated fever, chills, stiff neck photophobia or headache, palpitations, shortness of breath, chest pain, nausea vomiting diarrhea, dysuria frequency or flank pain. Patient is under the care of Dr. Terrell. Allergies and Home Medications Allergies Coded Allergies: morphine (Verified Allergy, Severe, RESP ARREST, 03/14/18) topiramate (Verified Allergy, Intermediate, MADE HAIR FALL OUT, 03/14/18) tramadol (Unverified Allergy, Mild, 03/14/18) Home Medications Cephalexin 500 Mg Capsule, 500 MG PO TID Prescribed by: KEZIA SANTOS on 03/14/182035 Famotidine 20 Mg Tablet, 20 MG PO BID, (Reported) Furosemide 40 Mg Tablet, 40 MG PO DAILY, (Reported) Insulin Aspart 300 Units/3 Ml Solution, 7-10 UNITS SQ SLIDING/SCALE TID, ( Reported) Insulin Glargine,Hum.rec.anlog 100 Unit/1 Ml Insuln.pen, 20 UNIT SQ HS, ( Reported) Loratadine 10 Mg Capsule, 10 MG PO DAILY, (Reported) Metformin HCl 500 Mg Tab.er.24, 1,000 MG PO BID, (Reported) Metoprolol Succinate 50 Mg Tab.er.24h, 50 MG PO BID, (Reported) Polyethylene Glycol 3350 17 Gm Powd.pack, 17 GM PO DAILY PRN for CONSTIPATION- 1ST LINE, (Reported) Rivaroxaban 20 Mg Tablet, 20 MG PO HS, (Reported) Sacubitril/Valsartan 1 Each Tablet, 1 TAB PO BID, (Reported) Sulfamethoxazole/Trimethoprim 1 Each Tablet, 1 EACH PO BID Prescribed by: KEZIA SANTOS on 03/14/182035 Patient Home Medication List Home Medication List Reviewed: Yes Review of Systems Review of Systems Constitutional: No chills, No fever EENTM: No ear pain Respiratory: No cough Cardiovascular: No chest pain Gastrointestinal: No abdominal pain, No nausea Genitourinary: No discharge, No dysuria, No frequency Musculoskeletal: No back pain Skin: No other (abscess perineal area) Psychiatric/Neurological: No Symptoms Reported Endocrine: No Symptoms Reported Hematologic/Lymphatic: No Symptoms Reported Past Onbwths-Ynxuvb-Gmuiob Hx Past Med/Social Hx: Reviewed Nursing Past Med/Soc Hx Patient Social History Alcohol Beverage of Choice: Vodka Type Used: Cigarettes Former Smoker, Quit: June 26, 2016 Recent Foreign Travel: No Contact w/Someone Who Travel: No Recent Hopitalizations: No Immunizations Up To Date Tetanus Booster (TDap): Unknown PED Vaccines UTD: Yes Date of Pneumonia Vaccine: Dec 08, 2015 Date of Influenza Vaccine: Nov 22, 2015 Seasonal Allergies Seasonal Allergies: Yes (chronic congestion ) Past Medical History Surgeries: Yes (bovine aortic/mitral valve replacement X2, hernia) Abdominal, Cardiac, Pacemaker, Testicular, Valve Replacement Respiratory: No Currently Using CPAP: No Currently Using BIPAP: No Cardiac: Yes (has bi v pacemaker) Cardiomyopathy, Endocarditis, Hypertension, Valvular Heart Disease Neurological: Yes (STARTED AFTER 2ND HEART SURGERY) Neuropathy Reproductive Disorders: No Sexually Transmitted Disease: No HIV/AIDS: No Gastrointestinal: Yes Gastroesophageal Reflux Musculoskeletal: Yes Chronic Back Pain Endocrine: Yes (WILL FORGET LANTUS SOMETIMES) Diabetes, Insulin dep Loss of Vision: Denies Hearing Impairment: Denies Cancer: No Psychosocial: Yes ADD/ADHD, Anxiety Integumentary: Yes Psoriasis Blood Disorders: Yes (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) Adverse Reaction/Blood Tranf: No (HAS HAD BLOOD WITH NO REACTION) Family Medical History Diabetes mellitus 19 MOTHER Hepatitis C Physical Exam Vital Signs Vital Signs - First Documented 04/01/18 08:47 Temp 99.0 Pulse 108 Resp 19 B/P (MAP) 165/90 (115) Pulse Ox 97 O2 Delivery Room Air Capillary Refill : General Appearance: WD/WN, no apparent distress HEENT: normal ENT inspection Neck: normal inspection Cardiovascular: regular rate, rhythm Respiratory: lungs clear, normal breath sounds Gastrointestinal: normal bowel sounds, non tender Back: normal inspection Extremities: normal range of motion, normal inspection Neurologic/Psychiatric: no motor/sensory deficits Skin: other (there is a 1/2 cm abscess located in the perineal area between the scrotum and the rectum. The abscess is approximately 1/2 cm in diameter. There is no drainage from the area.) Skin Problem Location: other (perineal abscess) Skin Problem Character: abscess (perineal.) Progress/Results/Core Measures Results/Orders My Orders Orders - NOA KOCH MD Lidocaine 1% Inj 20 Ml (Xylocaine 1% Inj (04/01/18 08:57) Ceftriaxone For Iv Use (Rocephin For I (04/01/18 09:15) Saline Lock/Iv-Start (04/01/18 09:10) Blood Culture (04/01/18 09:27) Lactic Acid Analyzer (04/01/18 09:27) Medications Given in ED Current Medications Medications Dose Ordered Sig/Kevin Route Start Time Stop Time Status Last Admin Dose Admin Lidocaine HCl 20 ml STK-MED ONCE .ROUTE 04/01/18 08:57 04/01/18 09:02 DC 04/01/18 09:00 1 ML Vital Signs/I&O 04/01/18 08:47 Temp 99.0 Pulse 108 Resp 19 B/P (MAP) 165/90 (115) Pulse Ox 97 O2 Delivery Room Air Progress Progress Note : Time: 09:17 Progress Note After discussion of the benefits and risks involved with an incision and drainage of the patient's abscess 1 percent Xylocaine was employed for local anesthesia. The abscess was incised and drained with a number 11 blade. Accommodation of clotted blood and purulent drainage was expressed. This was proximally 3 mL. A culture was obtained. Patient received 2 g of Rocephin IV. I discussed the importance of close follow-up with Dr. Terrell tomorrow given the patient's diabetes and previous endocarditis. I obtained blood cultures and lactic acid on the patient. Departure Impression Primary Impression: Abscess Disposition: 01 HOME, SELF-CARE Condition: Improved Departure-Patient Inst. Decision time for Depature: 09:32 Referrals: GAURANG TERRELL DO (PCP/Family) Primary Care Physician Patient Instructions: Abscess Incision and Drainage (DC) Add. Discharge Instructions: Cipro and Augmentin as prescribed. Close follow-up with Dr. Terrell tomorrow. Sitz baths and repeated soap and water cleansing to the abscess site today. Ibuprofen and/or Tylenol for pain. Return really prompts her questions. All discharge instructions reviewed with patient and/or family. Voiced understanding. NOA KOCH MD Apr 01, 2018 09:18
[2018-04-01] MEDS ORDERED: ONDANSETRON 4 MG (ZOFRAN) ORAL DISSOLVE TAB PO ONE (09:45)
--- NOTE | 2018-04-01 10:35 | NUR ---
As pt was leaving for DC, lab called with pt's lactic acid result of 3.11. Dr. John spoke to pt; pt to be admitted.
[2018-04-01 10:51] LABS: BASOPHILS # (AUTO) 0.1 10^3/uL (0.0-0.1); BASOPHILS % (AUTO) 0 % (0-10); EOSINOPHILS # (AUTO) 0.5 10^3/uL (0.0-0.3); EOSINOPHILS % (AUTO) 2 % (0-10); HEMATOCRIT 45 % (40-54); HEMOGLOBIN 15.5 G/DL (13.3-17.7); LYMPHOCYTES # (AUTO) 1.6 X 10^3 (1.0-4.0); LYMPHOCYTES % (AUTO) 8 % (12-44); MEAN CORPUSCULAR HEMOGLOBIN 30 PG (25-34); MEAN CORPUSCULAR HGB CONC 34 G/DL (32-36); MEAN CORPUSCULAR VOLUME 89 FL (80-99); MONOCYTES % (AUTO) 5 % (0-12); NEUTROPHILS # (AUTO) 18.3 X 10^3 (1.8-7.8); NEUTROPHILS % (AUTO) 85 % (42-75); PLATELET COUNT 248 10^3/uL (130-400); RED CELL DISTRIBUTION WIDTH 13.4 % (10.0-14.5); WHITE BLOOD COUNT 21.4 10^3/uL (4.3-11.0)
[2018-04-01] MEDS ORDERED: VANCOMYCIN 2000 MG/NS 500 ML IVPB IV NR ×2 (11:00)
[2018-04-01] MEDS ORDERED: MEROPENEM 2 GM/NS 100 ML IVPB IV NR ×2 (11:01)
[2018-04-01 11:03] LABS: ALANINE AMINOTRANSFERASE 43 U/L (0-55); ALBUMIN 4.4 GM/DL (3.2-4.5); ALKALINE PHOSPHATASE 82 U/L (40-136); BUN/CREATININE RATIO 13; CALCIUM 9.8 MG/DL (8.5-10.1); CARBON DIOXIDE 22 MMOL/L (21-32); CHLORIDE 94 MMOL/L (98-107); CREATININE SERUM 1.27 MG/DL (0.60-1.30); GFR ESTIMATED > 60; GLUCOSE 246 MG/DL (70-105); POTASSIUM 3.9 MMOL/L (3.6-5.0); SODIUM 133 MMOL/L (135-145); TOTAL PROTEIN 7.7 GM/DL (6.4-8.2)
--- NOTE | 2018-04-01 11:16 | Diagnostic Imaging Report ---
INDICATION: Sepsis. TIME OF EXAMINATION: 11:09 a.m. COMPARISON: Comparison is made with prior chest from 10/25/2016. FINDINGS: Changes of median sternotomy are noted. Cardiac defibrillator remains in place. No infiltrate is seen. No effusion or pneumothorax. IMPRESSION: Stable chest. No acute feature is seen. Dictated by: Dictated on workstation # [id number]
[2018-04-01 12:04] LABS: EOSINOPHILS % (MANUAL) 2 %; LYMPHOCYTES % (MANUAL) 8 %; NEUTROPHILS % (MANUAL) 90 %; RBC MORPH NORMAL
--- NOTE | 2018-04-01 12:15 | NUR ---
Meropenem in at this time. Pt now reports feeling itchy, hot, and skin on neck, head, and back is flushed. Pt stable at this time. Dr. John called to room. Dr. John added Solumedrol and Benedryl to pt's orders and instructed this nurse to take pt to floor and have nurse administer meds on the floor. Dr. John also instructed this nurse to take Vancomycin to floor and have AB hung on floor.
[2018-04-01 12:20] VITALS: BP 166/95
--- NOTE | 2018-04-01 12:20 | NUR ---
MARION ROSE admitted to room 433-1, with an admitting diagnosis of PERINEAL ABSCESS(L SIDE)/PROBABLE SEPSIS( WAS LANCED AND CULTURED IN ER), on 04/01/18 from [facility], accompanied by ER STAFF.MARION ROSE introduced to surroundings, call light, bed controls, phone, TV, temperature control, lights, meal times, smoking policy, visitor policy, side rail policy, bathrooms and showers. Patient Rights given to patient in the handbook. MARION ROSE verbalizes understanding that [facility] is not responsible for the loss or damage to any personal effects or valuables that are kept in the patients posession during their hospitalization. The following Patient Care Plans were discussed with the PT: Discharge Planning, HEPERTHERMIA RT/SEPSIS, RISK FOR DEFICIENCY FL VOL RT/SEPSIS, RISK FOR INFECTION RT/SEPSIS. MARION ROSE verbalizes understanding of Interdisciplinary Patient Education. Patient and/or family were informed about the Rapid Response Team and its purpose. CAME TO FLOOR FROM ER W/ SL IN -- NOTE PT HAD RASH AFTER TAKING IV MERREM IN ER - TO FLOOR WITH RASH -- THIS RN WAS TOLD AFTER PT TO AND NOTED THAT ER DR HAD WRITTEN ONE TIME IV BENADRYL AND ONE TIME IV SOLUMEDEROL -- ORDERS WERE FASED TO PHARMACY AND THIS RN CALLED PHARMACY TO REQUEST THE BENADRYL AND SOLUMEDEROL -- PT HAD SLT RED RASH TO CHEST AND BACK AND TO ARMS AND LEGS --
--- NOTE | 2018-04-01 12:20 | NUR ---
MARION ROSE admitted to room 433-1, with an admitting diagnosis of PERINEAL ABSCESS/ PROBABLE SEPSIS, on 04/01/18 from ER via [facility], accompanied by ER STAFF.MARION ROSE introduced to surroundings, call light, bed controls, phone, TV, temperature control, lights, meal times, smoking policy, visitor policy, side rail policy, bathrooms and showers. Patient Rights given to patient in the handbook. MARION ROSE verbalizes understanding that [facility] is not responsible for the loss or damage to any personal effects or valuables that are kept in the patients posession during their hospitalization. The following Patient Care Plans were discussed with the PT: Discharge Planning, HEPERTHERMIA RT/SEPSIS, RISK FOR DEFICIENT FL VOL RT/SEPSIS, AND RISK FOR INFECTION RT/SEPSIS. MARION ROSE verbalizes understanding of Interdisciplinary Patient Education. Patient and/or family were informed about the Rapid Response Team and its purpose. PT TO FLOOR WITH IV IN L AC -- NOTE THAT ABSTRACTER BROUGHT IV VANCO THAT WAS ORDERED IN ER TO FLOOR TO BE GIVEN -- AND THAT RN GOT ORDER FOR IV SOLUMEDEROL AND IV BENADRYL X1 FOR REACTION OF SLIGHT RASH TO ABD, BACK, LEGS AND ARMS -- AND THIS RN DID CALL PHARMACY AND GOT TO FLOOR FROM PHARMACY AND TO BE GIVEN
--- NOTE | 2018-04-01 12:22 | NUR ---
NOTE THAT PT VOICED HIS FIANCEETO BRING IN MED LIST FOR PT
[2018-04-01] MEDS ORDERED: diphenhydrAMINE 50 MG/ML INJ (BENADRYL) IV NR (12:32)
[2018-04-01] MEDS ORDERED: methylPREDNISolone 125 MG (Solu-MEDROL) VIAL IV NR (12:32)
[2018-04-01] MEDS: NS IV 1000 ML 1,000 ML IV SCH (12:49)
--- NOTE | 2018-04-01 13:10 | NUR ---
NOTE THAT PT VOICED RASH IS GONE AND HE DOES NOT FEEL ITCHY
[2018-04-01] MEDS ORDERED: FLU QUADRIvalent (5+ YOA) 2018-2019 (AFLURIA) 0.5 ML IM ONE (15:15)
[2018-04-01 15:48] VITALS: BP 128/70
--- NOTE | 2018-04-01 15:51 | NUR ---
Vanco - Loading dose - 2gm x 1 over 2 hours, then 1250mg every 8 hours. Vanc trough ordered for Monday, 04/02, at 1230.
--- NOTE | 2018-04-01 16:43 | NUR ---
NOTE THAT PT'S HOME MED LIST STILL NOT TO RM
--- NOTE | 2018-04-01 18:42 | NUR ---
HOME MED LIST STILL NOT BROUGHT IN BY S.O.
[2018-04-01 19:35] VITALS: BP 143/82
--- NOTE | 2018-04-01 20:20 | NUR ---
Dr. Guadalupe notified of accucheck at 440 mg/dl. New order rec to start sliding scale C Novolog and to continue home medications of Pepcid, Entresto, xareljúnior, Levemir. Addendum: 04/02/18 at 0327 by DIAZ MORRIS RN Also continued was Toprol. However, at 2129 pt reports that he no longer takes this medication.
[2018-04-01] MEDS ORDERED: NON-FORMULARY MEDICATION 1 EA EA (Famotidine 20 MG) PO SCH (21:00)
[2018-04-01] MEDS ORDERED: NON-FORMULARY MEDICATION 1 EA EA (Sacubitril/Valsartan (Entresto 49 mg-51 mg Tablet) 1 TAB PO SCH (21:00)
[2018-04-01] MEDS ORDERED: RIVAROXABAN 20 MG TABLET (XARELTO) PO SCH (21:00)
[2018-04-01] MEDS ORDERED: meTOproloL SUCCINATE 50 MG (TOPROL XL) TAB PO SCH (21:00)
[2018-04-01] MEDS ORDERED: FAMOTIDINE 20 MG (PEPCID) TABLET ONE (21:14)
[2018-04-01] MEDS ORDERED: ASPI-808 PO (21:23)
[2018-04-01] MEDS: FAMOTIDINE 20 MG (PEPCID) TABLET PO SCH (21:27)
[2018-04-01] MEDS: ACETAMINOPHEN 325 MG TABLET PO PRN (21:28)
[2018-04-01] MEDS: inSUlin ASPART (NovoLOG) 1 UNIT/0.01 ML (CHARGE PER UNIT) SC SCH (21:28)
[2018-04-01] MEDS: VANCOMYCIN 1250 MG/NS 250 ML IVPB IV SCH ×2 (21:28)
[2018-04-01] MEDS: inSUlin DETERMIR 1 UNIT/0.01 ML (LEVEMIR) CHARGE PER UNIT SQ SCH (21:28)
--- NOTE | 2018-04-01 21:30 | NUR ---
Pt reports that he no longer takes Xarelto or Toprol and refused these medications that were continued by Dr. Guadalupe.
[2018-04-02] VITALS (7 sets, daily range): BP systolic 106–139; BP diastolic 58–90
[2018-04-02] MEDS ORDERED: ROSU5TAB PO (02:31)
[2018-04-02] MEDS ORDERED: FENO135C PO (02:31)
[2018-04-02] MEDS ORDERED: TEST5GEL TD (04:53)
[2018-04-02] MEDS: VANCOMYCIN 1250 MG/NS 250 ML IVPB IV SCH ×6 (05:43→22:07)
[2018-04-02] MEDS: inSUlin ASPART (NovoLOG) 1 UNIT/0.01 ML (CHARGE PER UNIT) SC SCH ×3 (06:00→20:57)
[2018-04-02] MEDS: ACETAMINOPHEN 325 MG TABLET PO PRN ×3 (07:45→20:56)
[2018-04-02] MEDS: NS IV 1000 ML 1,000 ML IV SCH ×2 (07:50→18:22)
[2018-04-02] MEDS: FAMOTIDINE 20 MG (PEPCID) TABLET PO SCH ×2 (07:50→20:56)
--- NOTE | 2018-04-02 08:49 | History & Physicial ---
History of Present Illness History of Present Illness Reason for visit/HPI Patient has an abscess between rectum and testicles. Abscess open. Serum lactic acid elevated. Emergency room physician and admitted patient. Patient has history of endocarditis 2 taken care of at [facility]. Patient known diabetic. Previous surgery open heart 2. Pacemaker 3. [place] teeth. 2 hernia surgeries Date of Admission Apr 01, 2018 at 11:00 Time Seen by a Provider: 08:43 I consulted on this patient on 04/02/18 08:43 Attending Physician Rob Guadalupe MD Admitting Physician Dmitriy Terrell DO Consult Allergies and Home Medications Allergies Coded Allergies: morphine (Verified Allergy, Severe, RESP ARREST, 03/14/18) meropenem (Verified Allergy, Intermediate, rash, 04/01/18) topiramate (Verified Allergy, Intermediate, MADE HAIR FALL OUT, 03/14/18) tramadol (Unverified Allergy, Mild, 03/14/18) Home Medications Aspirin 325 Mg Tablet, 325 MG PO DAILY, (Reported) Famotidine 20 Mg Tablet, 20 MG PO BID, (Reported) Fenofibric Acid (Choline) 135 Mg Capsule.dr, 135 MG PO DAILY, (Reported) Furosemide 40 Mg Tablet, 40 MG PO DAILY, (Reported) Insulin Aspart 300 Units/3 Ml Solution, 7-10 UNITS SQ SLIDING/SCALE TID, ( Reported) Insulin Glargine,Hum.rec.anlog 100 Unit/1 Ml Insuln.pen, 30 UNIT SQ HS, ( Reported) Loratadine 10 Mg Capsule, 10 MG PO DAILY, (Reported) Metformin HCl 500 Mg Tab.er.24, 1,000 MG PO BID, (Reported) Polyethylene Glycol 3350 17 Gm Powd.pack, 17 GM PO DAILY PRN for CONSTIPATION- 1ST LINE, (Reported) Rosuvastatin Calcium 5 Mg Tablet, 5 MG PO HS, (Reported) Sacubitril/Valsartan 1 Each Tablet, 1 TAB PO BID, (Reported) Testosterone 5 Gm Gel.packet, 5 GM TD DAILY, (Reported) Patient Home Medication List Home Medication List Reviewed: Yes Past Oihntng-Itnhdd-Vmyrso Hx Patient Social History Marrital Status: single Employed/Student: unemployed Alcohol Use: Occasionally Uses Number of Drinks Today: FF Alcohol Beverage of Choice: Vodka Recreational Drug Use: Yes (marijuana) Smoking Status: Current Everyday Smoker Former Smoker, Quit: June 26, 2016 Type Used: Cigarettes Physical Abuse Screen: No Sexual Abuse: No Recent Foreign Travel: No Contact w/other who traveled: No Recent Hopitalizations: No Recent Infectious Disease Expo: No Immunizations Up To Date Tetanus Booster (TDap): Unknown Pediatric: Yes Date of Pneumonia Vaccine: Dec 08, 2015 Date of Influenza Vaccine: Nov 22, 2015 Seasonal Allergies Seasonal Allergies: Yes (chronic congestion ) Surgeries Yes (bovine aortic/mitral valve replacement X2, hernia) Abdominal, Cardiac, Pacemaker, Testicular, Valve Replacement Respiratory No Currently Using CPAP: No Currently Using BIPAP: No Cardiovascular Yes (has bi v pacemaker) Cardiomyopathy, Endocarditis, Hypertension, Valvular Heart Disease Neurological Yes (STARTED AFTER 2ND HEART SURGERY) Neuropathy Reproductive System Hx Reproductive Disorders: No Sexually Transmitted Disease: No HIV/AIDS: No Gastrointestinal Yes Gastroesophageal Reflux Musculoskeletal Yes Chronic Back Pain Endocrine History of Endocrine Disorders: Yes (WILL FORGET LANTUS SOMETIMES) Endocrine Disorders: Diabetes, Insulin dep HEENT Loss of Vision: Denies Hearing Impairment: Denies Cancer No Psychosocial History of Psychiatric Problem: Yes Behavioral Health Disorders: ADD/ADHD, Anxiety Integumentary History of Skin or Integumenta: Yes Skin/Integumentary Disorders: Psoriasis Blood Transfusions History of Blood Disorders: Yes (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00" Weight: 350lbs. 0.0oz. [id number]; 44.9 BMI Method:Stated General Appearance: No Apparent Distress, WD/WN Eyes: Bilateral Eye Normal Inspection HEENT: Normal ENT Inspection Neck: Full Range of Motion, Normal Inspection Respiratory: Chest Non Tender, No Accessory Muscle Use, No Respiratory Distress Cardiovascular: Regular Rate, Rhythm Gastrointestinal: Non Tender, Soft Assessment/Plan Assessment and Plan Abscess between rectum and testicles. Diabetes. History of endocarditis 2. Open heart surgery 2. Hyperlipidemia Elevated lactic acid Admission Diagnosis Admission Status: Observation Clinical Quality Measures DVT/VTE Risk/Contraindication: Risk Factor Score Per Nursin RFS Level Per Nursing on Admit: 1=Low/No VTE PPX DMITRIY TERRELL DO Apr 02, 2018 08:49
[2018-04-02] MEDS ORDERED: ASPIRIN 325 MG (5 GR) TABLET PO SCH (09:00)
[2018-04-02] MEDS ORDERED: SACUBITRIL/VALSARTAN 24/26 MG (ENTRESTO) TABLET PO SCH (09:00)
[2018-04-02] MEDS ORDERED: FUROSEMIDE 40 MG (LASIX) TAB PO SCH (09:00)
[2018-04-02] MEDS ORDERED: metFORMIN XR 500 MG (GLUCOPHAGE XR) TAB PO SCH (09:07)
[2018-04-02 09:45] LABS: HEMOGLOBIN 14.6 G/DL (13.3-17.7); MEAN PLATELET VOLUME 10.6 FL (7.4-10.4); RED CELL DISTRIBUTION WIDTH 13.4 % (10.0-14.5); WHITE BLOOD COUNT 24.2 10^3/uL (4.3-11.0)
[2018-04-02 09:59] LABS: BUN/CREATININE RATIO 14; CALCIUM 9.6 MG/DL (8.5-10.1); CARBON DIOXIDE 22 MMOL/L (21-32); CHLORIDE 96 MMOL/L (98-107); CREATININE SERUM 1.38 MG/DL (0.60-1.30); GFR ESTIMATED > 60; GLUCOSE 363 MG/DL (70-105); POTASSIUM 4.1 MMOL/L (3.6-5.0); SODIUM 133 MMOL/L (135-145)
[2018-04-02] MEDS: cefTRIAXone 1,000 MG/SWFI 10 ML IV PUSH IV SCH ×2 (10:12)
[2018-04-02] MEDS ORDERED: PATIENT MAY USE OWN MEDS, ALL MC SCH (10:15)
--- NOTE | 2018-04-02 10:30 | NUR ---
DR TERRELL NOTIFIED OF LACTIC ACID 2.59 AND WBC OF 24.2, INSTRUCTED NURSE TO REPEAT LACTIC ACID AT 1500
[2018-04-02] MEDS ORDERED: inSUlin ASPART (NovoLOG) 1 UNIT/0.01 ML (CHARGE PER UNIT) SC SCH (11:00)
[2018-04-02] MEDS: metFORMIN XR 500 MG (GLUCOPHAGE XR) TAB PO SCH ×2 (11:19→16:51)
[2018-04-02] MEDS: ROSUVASTATIN 5 MG (CRESTOR) TABLET PO SCH (11:20)
[2018-04-02] MEDS: ENTRESTO PO SCH ×2 (11:20→20:59)
[2018-04-02] MEDS: FUROSEMIDE 40 MG (LASIX) TAB PO SCH (11:20)
[2018-04-02] MEDS: ASPIRIN 325 MG (5 GR) TABLET PO SCH (11:21)
[2018-04-02] MEDS ORDERED: TROUGH ORDER-PHARMACY XX NR (12:30)
[2018-04-02] MEDS: CLINDAMYCIN 600 MG/50 ML IVPB 50 ML IV SCH ×2 (13:53→21:07)
--- NOTE | 2018-04-02 15:50 | NUR ---
DR TERRELL NOTIFIED OF LACTIC ACID, 2.53
--- NOTE | 2018-04-02 16:39 | NUR ---
BLOOD SUGAR 373, PATIENT REQUESTING 20 UNITS INSULIN, DR TERRELL NOTIFIED AND ORDERED TO GO BACK TO SLIDING SCALE C. REQUESTING SLEEPING MED, ORDER GIVEN
[2018-04-02] MEDS ORDERED: inSUlin ASPART (NovoLOG) 1 UNIT/0.01 ML (CHARGE PER UNIT) ONE (16:43)
[2018-04-02] MEDS: ZOLPIDEM 5 MG (AMBIEN) TAB PO PRN (20:56)
[2018-04-02] MEDS: inSUlin DETERMIR 1 UNIT/0.01 ML (LEVEMIR) CHARGE PER UNIT SQ SCH (20:57)
[2018-04-02] MEDS ORDERED: traZODone 50 MG (DESYREL) TAB PO SCH (21:00)
[2018-04-02] MEDS ORDERED: inSUlin DETERMIR 1 UNIT/0.01 ML (LEVEMIR) CHARGE PER UNIT SQ SCH (21:00)
[2018-04-03 04:00] VITALS: BP 132/78
[2018-04-03] MEDS: CLINDAMYCIN 600 MG/50 ML IVPB 50 ML IV SCH ×3 (05:29→21:17)
[2018-04-03] MEDS: inSUlin ASPART (NovoLOG) 1 UNIT/0.01 ML (CHARGE PER UNIT) SC SCH ×5 (06:21→21:17)
[2018-04-03] MEDS: metFORMIN XR 500 MG (GLUCOPHAGE XR) TAB PO SCH ×2 (06:22→18:44)
[2018-04-03] MEDS: VANCOMYCIN 1250 MG/NS 250 ML IVPB IV SCH ×6 (06:55→22:19)
[2018-04-03 07:50] LABS: HEMOGLOBIN 14.3 G/DL (13.3-17.7); MEAN PLATELET VOLUME 10.9 FL (7.4-10.4); RED CELL DISTRIBUTION WIDTH 13.3 % (10.0-14.5); WHITE BLOOD COUNT 15.6 10^3/uL (4.3-11.0)
--- NOTE | 2018-04-03 08:06 | Progress Note (SOAP) ---
Subjective Time Seen by a Provider: 08:00 Subjective/Events-last exam Abscess between rectum and testicles. Patient states it's hurting more and needs surgeon. Diabetes. Focused Exam Lactate Level 04/02/18 12:27: Lactic Acid Level 1.82 04/02/18 15:06: Lactic Acid Level 2.53*H 04/02/18 17:15: Lactic Acid Level 2.17*H Objective Exam Vital Signs Date Time Temp Pulse Resp B/P (MAP) Pulse Ox O2 Delivery O2 Flow Rate FiO2 04/03/18 04:00 96.3 81 18 132/78 (96) 96 Room Air 04/02/18 23:43 97.1 73 18 109/60 (76) 97 Room Air 04/02/18 20:00 97.3 73 18 119/70 (86) 97 Room Air 04/02/18 20:00 97 Room Air 04/02/18 16:05 97.0 75 20 127/70 (89) 97 Room Air 04/02/18 12:00 97.0 70 18 106/58 (74) 97 Room Air 04/02/18 08:31 97 Room Air I & O 04/03/18 07:00 Intake Total 2740 ml Output Total 3175 ml Balance -435 ml Capillary Refill : Less Than 3 Seconds General Appearance: No Apparent Distress, WD/WN HEENT: Normal ENT Inspection Neck: Full Range of Motion, Normal Inspection Respiratory: Chest Non Tender, No Accessory Muscle Use, No Respiratory Distress Cardiovascular: Regular Rate, Rhythm, No Murmur Gastrointestinal: non tender, soft Results Lab Laboratory Tests 04/02/18 09:35 04/03/18 07:30 Laboratory Tests 04/02/18 09:35: White Blood Count 24.2H, Red Blood Count 4.89, Hemoglobin 14.6, Hematocrit 44, Mean Corpuscular Volume 90, Mean Corpuscular Hemoglobin 30, Mean Corpuscular Hemoglobin Concent 33, Red Cell Distribution Width 13.4, Platelet Count 260, Mean Platelet Volume 10.6H, Sodium Level 133L, Potassium Level 4.1, Chloride Level 96L, Carbon Dioxide Level 22, Anion Gap 15H, Blood Urea Nitrogen 20H, Creatinine 1.38H, Estimat Glomerular Filtration Rate > 60, BUN/Creatinine Ratio 14, Glucose Level 363H, Lactic Acid Level 2.59*H, Calcium Level 9.6 04/02/18 11:13: Glucometer 333H 04/02/18 12:27: Lactic Acid Level 1.82, Vancomycin Level Trough 17.1 04/02/18 15:06: Lactic Acid Level 2.53*H 04/02/18 16:07: Glucometer 370H 04/02/18 17:15: Lactic Acid Level 2.17*H 04/02/18 20:35: Glucometer 283H 04/03/18 05:40: Glucometer 231H 04/03/18 07:30: White Blood Count 15.6H, Red Blood Count 4.78, Hemoglobin 14.3, Hematocrit 44, Mean Corpuscular Volume 91, Mean Corpuscular Hemoglobin 30, Mean Corpuscular Hemoglobin Concent 33, Red Cell Distribution Width 13.3, Platelet Count 223, Mean Platelet Volume 10.9H Microbiology 04/01/18 Blood Culture - Preliminary, Resulted No growth 04/01/18 Gram Stain - Final, Resulted 04/01/18 Wound Culture - Preliminary, Resulted No growth Assessment/Plan Assessment/Plan Assess & Plan/Chief Complaint Abscess between rectum and testicles. Diabetes. History of endocarditis. Lactic acid decreasing. Clinical Quality Measures Admission Status Admission Dx Abscess between rectum and testicles. Diabetes. History of endocarditis 2. Open heart surgery 2. Hyperlipidemia Elevated lactic acid DVT/VTE Risk/Contraindication: Risk Factor Score Per Nursin RFS Level Per Nursing on Admit: 1=Low/No VTE PPGAURANG RAND DO Apr 03, 2018 08:05
[2018-04-03 08:09] LABS: BUN/CREATININE RATIO 15; CALCIUM 9.6 MG/DL (8.5-10.1); CARBON DIOXIDE 23 MMOL/L (21-32); CHLORIDE 102 MMOL/L (98-107); CREATININE SERUM 1.23 MG/DL (0.60-1.30); GFR ESTIMATED > 60; GLUCOSE 260 MG/DL (70-105); POTASSIUM 3.7 MMOL/L (3.6-5.0); SODIUM 137 MMOL/L (135-145)
[2018-04-03 08:18] VITALS: BP 135/68
--- NOTE | 2018-04-03 08:24 | NUR ---
DR. VELASQUEZ NOTIFIED OF CONSULT. MADE NPO AT THIS TIME.
[2018-04-03] MEDS: cefTRIAXone 1,000 MG/SWFI 10 ML IV PUSH IV SCH ×2 (08:34)
[2018-04-03] MEDS: FAMOTIDINE 20 MG (PEPCID) TABLET PO SCH ×2 (08:34→21:18)
[2018-04-03] MEDS: FUROSEMIDE 40 MG (LASIX) TAB PO SCH (08:35)
[2018-04-03] MEDS: ASPIRIN 325 MG (5 GR) TABLET PO SCH (08:35)
[2018-04-03] MEDS: ENTRESTO PO SCH ×2 (08:36→21:18)
[2018-04-03] MEDS: ROSUVASTATIN 5 MG (CRESTOR) TABLET PO SCH (08:36)
--- NOTE | 2018-04-03 11:24 | NUR ---
US OF SCROTUM/PERINEUM AT BEDSIDE.
[2018-04-03 11:56] VITALS: BP 135/70
--- NOTE | 2018-04-03 12:58 | NUR ---
REFUSED INSULIN PER SS BECAUSE HE REQUESTED IT BE GIVEN "IM IN BUTT". INFORMED PT THAT INSULIN WAS TO BE GIVEN SQ AND I WOULD GIVE IN BACK OF ARMS, TOP OF THIGHS, OR ABD. PT REFUSED INSULIN. OFFERED TO LET PT GIVE HIMSELF. REFUSED. DR. TERRELL NOTIFIED.
--- NOTE | 2018-04-03 13:00 | NUR ---
REQUESTING DIET. DR. VELASQUEZ NOTIFIED. NO ORDER REC'D.
--- NOTE | 2018-04-03 13:29 | Diagnostic Imaging Report ---
INDICATION: Perineal abscess. TECHNIQUE: Sonographic interrogation of the area of skin induration between the scrotum and rectum was performed. FINDINGS: There is some heterogeneous tissue at this location. Ill-defined fluid is identified measuring approximately 4.0 x 1.2 x 1.6 cm. This could represent early abscess formation. No other abnormalities are identified. IMPRESSION: There is an ill-defined fluid collection in the perineal region which may represent early abscess formation. Dictated by: Dictated on workstation # [id number]
--- NOTE | 2018-04-03 15:43 | NUR ---
THIS RN TO ASSUME PATIENT CARE.
[2018-04-03 16:23] VITALS: BP 149/73
[2018-04-03 19:30] VITALS: BP 133/85
--- NOTE | 2018-04-03 19:41 | Consultation ---
History of Present Illness History of Present Illness Patient Consulted On(tessa/time) 04/03/18 19:34 Date Seen by Provider: Apr 03, 2018 Time Seen by Provider: 10:37 History of Present Illness consult requested by Dr. Hermosillo for perineal abscess. Patient is a 27-year-old male who states that he's had a small abscess just below his scrotum is been there for about 4 days. He did have increasing pain but patient with recurrent endocarditis and was concerned because he so susceptible to issues with infections. Patient states he went to the emergency department and was found to have a small abscess. He states that he had incision and drainage performed at that time. He states that this did drain a little bit of material from the wound but today this morning he noticed that there is more swelling near the scrotum. Patient states things don't feel quite right and is without any other complaints. He denies any nausea vomiting fever sweats chills shortness of breath or chest pain. His white blood cell count has decreased and currently 15,600. Allergies and Home Medications Allergies Coded Allergies: morphine (Verified Allergy, Severe, RESP ARREST, 03/14/18) meropenem (Verified Allergy, Intermediate, rash, 04/01/18) topiramate (Verified Allergy, Intermediate, MADE HAIR FALL OUT, 03/14/18) tramadol (Unverified Allergy, Mild, 03/14/18) Home Medications Aspirin 325 Mg Tablet, 325 MG PO DAILY, (Reported) Famotidine 20 Mg Tablet, 20 MG PO BID, (Reported) Fenofibric Acid (Choline) 135 Mg Capsule.dr, 135 MG PO DAILY, (Reported) Furosemide 40 Mg Tablet, 40 MG PO DAILY, (Reported) Insulin Aspart 300 Units/3 Ml Solution, 7-10 UNITS SQ SLIDING/SCALE TID, ( Reported) Insulin Glargine,Hum.rec.anlog 100 Unit/1 Ml Insuln.pen, 30 UNIT SQ HS, ( Reported) Loratadine 10 Mg Capsule, 10 MG PO DAILY, (Reported) Metformin HCl 500 Mg Tab.er.24, 1,000 MG PO BID, (Reported) Polyethylene Glycol 3350 17 Gm Powd.pack, 17 GM PO DAILY PRN for CONSTIPATION- 1ST LINE, (Reported) Rosuvastatin Calcium 5 Mg Tablet, 5 MG PO HS, (Reported) Sacubitril/Valsartan 1 Each Tablet, 1 TAB PO BID, (Reported) Testosterone 5 Gm Gel.packet, 5 GM TD DAILY, (Reported) Patient Home Medication List Home Medication List Reviewed: Yes Past Gqiqnfw-Hpaekb-Ctfzpp Hx Patient Social History Alcohol Use: Occasionally Uses Number of Drinks Today: FF Recreational Drug Use: Yes (marijuana) Smoking Status: Current Everyday Smoker Former Smoker, Quit: June 26, 2016 Type Used: Cigarettes Recent Foreign Travel: No Contact w/Someone Who Travel: No Recent Infectious Disease Expo: No Recent Hopitalizations: No Physical Abuse Screen: No Sexual Abuse: No Immunizations Up To Date Tetanus Booster (TDap): Unknown PED Vaccines UTD: Yes Date of Pneumonia Vaccine: Dec 08, 2015 Date of Influenza Vaccine: Nov 22, 2015 Seasonal Allergies Seasonal Allergies: Yes (chronic congestion ) Surgeries History of Surgeries: Yes (bovine aortic/mitral valve replacement X2, hernia) Surgeries: Abdominal, Cardiac, Pacemaker, Testicular, Valve Replacement Respiratory History of Respiratory Disorde: No Cardiovascular History of Cardiac Disorders: Yes (has bi v pacemaker) Cardiac Disorders: Cardiomyopathy, Endocarditis, Hypertension, Valvular Heart Disease Neurological History of Neurological Disord: Yes (STARTED AFTER 2ND HEART SURGERY) Neurological Disorders: Neuropathy Reproductive System Hx Reproductive Disorders: No Sexually Transmitted Disease: No HIV/AIDS: No Gastrointestinal History of Gastrointestinal Di: Yes Gastrointestinal Disorders: Gastroesophageal Reflux Musculoskeletal History of Musculoskeletal Dis: Yes Musculoskeletal Disorders: Chronic Back Pain Endocrine History of Endocrine Disorders: Yes (WILL FORGET LANTUS SOMETIMES) Endocrine Disorders: Diabetes, Insulin dep HEENT Loss of Vision: Denies Hearing Impairment: Denies Cancer History of Cancer: No Psychosocial History of Psychiatric Problem: Yes Behavioral Health Disorders: ADD/ADHD, Anxiety Integumentary History of Skin or Integumenta: Yes Skin/Integumentary Disorders: Psoriasis Blood Transfusions History of Blood Disorders: Yes (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) Adverse Reaction to a Blood Tr: No (HAS HAD BLOOD WITH NO REACTION) Family Medical History Significant Family History: No Pertinent Family Hx Family Medial History: Diabetes mellitus 19 MOTHER Hepatitis C Review of Systems-General Constitutional: no symptoms reported EENTM: no symptoms reported Respiratory: no symptoms reported Cardiovascular: no symptoms reported Gastrointestinal: no symptoms reported Genitourinary: see HPI Musculoskeletal: no symptoms reported Skin: see HPI Psychiatric/Neurological: No Symptoms Reported Physical Exam-General Problems Physical Exam Vital Signs Vital Signs - First Documented 04/01/18 08:47 Temp 99.0 Pulse 108 Resp 19 B/P (MAP) 165/90 (115) Pulse Ox 97 O2 Delivery Room Air Capillary Refill : Less Than 3 SecondsLess Than 3 Seconds General Appearance: no apparent distress HEENT: PERRL/EOMI, normal ENT inspection Neck: supple Respiratory: chest non-tender, no respiratory distress, no accessory muscle use Cardiovascular: regular rate, rhythm Gastrointestinal: non tender, soft, no organomegaly, no pulsatile mass Rectal: deferred Back: normal inspection Extremities: non-tender, normal inspection Neurologic/Psychiatric: no motor/sensory deficits, alert, normal mood/affect, oriented x 3 Skin: warm/dry (small opening just below the scrotum. With some slight surrounding induration and some swelling up into the scrotum no significant erythema) Lymphatic: no adenopathy Data Review Labs Laboratory Tests 04/02/18 20:35: Glucometer 283H 04/03/18 05:40: Glucometer 231H 04/03/18 07:30: White Blood Count 15.6H, Red Blood Count 4.78, Hemoglobin 14.3, Hematocrit 44, Mean Corpuscular Volume 91, Mean Corpuscular Hemoglobin 30, Mean Corpuscular Hemoglobin Concent 33, Red Cell Distribution Width 13.3, Platelet Count 223, Mean Platelet Volume 10.9H, Sodium Level 137, Potassium Level 3.7, Chloride Level 102, Carbon Dioxide Level 23, Anion Gap 12, Blood Urea Nitrogen 18, Creatinine 1.23, Estimat Glomerular Filtration Rate > 60, BUN/Creatinine Ratio 15, Glucose Level 260H, Calcium Level 9.6 04/03/18 11:44: Glucometer 201H 04/03/18 16:23: Glucometer 259H Microbiology 04/01/18 Blood Culture - Preliminary, Resulted No growth 04/01/18 Gram Stain - Final, Resulted 04/01/18 Wound Culture - Preliminary, Resulted See Report Assessment/Plan Assessment/Plan Assessment/Plan Abscess between rectum and testicles. Diabetes. History of endocarditis. I ordered all shunt evaluate the area. There does seem to be a small amount of fluid which I think is more residual. A don't feel any significant fluctuance. There is no drainage from her incision and drainage was performed. Would continue on antibiotics at this time. Continue to monitor for any change. No surgical intervention at this time will follow. Clinical Quality Measures DVT/VTE Risk/Contraindication: Risk Factor Score Per Nursin RFS Level Per Nursing on Admit: 1=Low/No VTE PPX PITA VELASQUEZ DO Apr 03, 2018 19:41
[2018-04-03] MEDS: inSUlin DETERMIR 1 UNIT/0.01 ML (LEVEMIR) CHARGE PER UNIT SQ SCH (21:17)
[2018-04-03] MEDS: ACETAMINOPHEN 325 MG TABLET PO PRN (21:17)
[2018-04-03] MEDS: NS IV 1000 ML 1,000 ML IV SCH (22:19)
[2018-04-03] MEDS: ZOLPIDEM 5 MG (AMBIEN) TAB PO PRN (22:39)
[2018-04-03 23:27] VITALS: BP 157/83
[2018-04-04] MEDS: CLINDAMYCIN 600 MG/50 ML IVPB 50 ML IV SCH (04:57)
[2018-04-04] MEDS: VANCOMYCIN 1250 MG/NS 250 ML IVPB IV SCH ×2 (05:35)
[2018-04-04 05:47] LABS: HEMOGLOBIN 14.8 G/DL (13.3-17.7); MEAN PLATELET VOLUME 10.3 FL (7.4-10.4); RED CELL DISTRIBUTION WIDTH 13.6 % (10.0-14.5); WHITE BLOOD COUNT 12.7 10^3/uL (4.3-11.0)
[2018-04-04] MEDS: inSUlin ASPART (NovoLOG) 1 UNIT/0.01 ML (CHARGE PER UNIT) SC SCH (05:51)
[2018-04-04] MEDS: metFORMIN XR 500 MG (GLUCOPHAGE XR) TAB PO SCH (05:52)
[2018-04-04 06:07] LABS: BUN/CREATININE RATIO 15; CALCIUM 9.7 MG/DL (8.5-10.1); CARBON DIOXIDE 23 MMOL/L (21-32); CHLORIDE 101 MMOL/L (98-107); CREATININE SERUM 1.05 MG/DL (0.60-1.30); GFR ESTIMATED > 60; GLUCOSE 197 MG/DL (70-105); POTASSIUM 3.7 MMOL/L (3.6-5.0); SODIUM 137 MMOL/L (135-145)
--- NOTE | 2018-04-04 08:02 | Progress Note (SOAP) ---
Subjective Time Seen by a Provider: 08:00 Subjective/Events-last exam Patient feeling better and wants to go home patient afebrile. White blood cell count keeps on going down. No elevated temperature. Seen patient with surgeon and will discharge today on Omnicef 300 mg number 10 one twice a day Focused Exam Lactate Level 04/02/18 12:27: Lactic Acid Level 1.82 04/02/18 15:06: Lactic Acid Level 2.53*H 04/02/18 17:15: Lactic Acid Level 2.17*H Objective Exam Vital Signs Date Time Temp Pulse Resp B/P (MAP) Pulse Ox O2 Delivery O2 Flow Rate FiO2 04/03/18 23:27 97.6 75 14 157/83 (107) 100 Room Air 04/03/18 19:30 96.2 85 16 133/85 (101) 95 Room Air 04/03/18 16:23 96.2 71 16 149/73 (98) 96 Room Air 04/03/18 11:56 97.3 86 20 135/70 (91) 96 Room Air 04/03/18 08:18 98.7 90 20 135/68 (90) 96 Room Air I & O 04/04/18 07:00 Intake Total 1592.5 ml Output Total 2200 ml Balance -607.5 ml Capillary Refill : Less Than 3 SecondsLess Than 3 Seconds General Appearance: No Apparent Distress, WD/WN HEENT: Normal ENT Inspection Neck: Full Range of Motion, Normal Inspection Respiratory: Chest Non Tender, Lungs Clear, No Accessory Muscle Use, No Respiratory Distress Cardiovascular: No Murmur Gastrointestinal: non tender, soft Results Lab Laboratory Tests 04/03/18 11:44: Glucometer 201H 04/03/18 16:23: Glucometer 259H 04/03/18 20:41: Glucometer 227H 04/04/18 04:49: Glucometer 187H 04/04/18 05:34: White Blood Count 12.7H, Red Blood Count 4.87, Hemoglobin 14.8, Hematocrit 44, Mean Corpuscular Volume 91, Mean Corpuscular Hemoglobin 30, Mean Corpuscular Hemoglobin Concent 34, Red Cell Distribution Width 13.6, Platelet Count 250, Mean Platelet Volume 10.3, Sodium Level 137, Potassium Level 3.7, Chloride Level 101, Carbon Dioxide Level 23, Anion Gap 13, Blood Urea Nitrogen 16, Creatinine 1.05, Estimat Glomerular Filtration Rate > 60, BUN/Creatinine Ratio 15, Glucose Level 197H, Calcium Level 9.7 Microbiology 04/01/18 Blood Culture - Preliminary, Resulted No growth 04/01/18 Gram Stain - Final, Resulted 04/01/18 Wound Culture - Preliminary, Resulted See Report Assessment/Plan Assessment/Plan Assess & Plan/Chief Complaint Abscess between rectum and testicles. Diabetes. History of endocarditis. Lactic acid decreasing. . 04/04/18. Abscess smaller. White blood cell count going down. Patient wants to go home. Diabetes. History of endocarditis with 2 surgeries. To send home on Omnicef 300 mg number 10 one twice a day 2 office this Monday Clinical Quality Measures Admission Status Admission Dx Abscess between rectum and testicles. Diabetes. History of endocarditis 2. Open heart surgery 2. Hyperlipidemia Elevated lactic acid DVT/VTE Risk/Contraindication: Risk Factor Score Per Nursin RFS Level Per Nursing on Admit: 1=Low/No VTE PPX GAURANG TERRELL DO Apr 04, 2018 08:02
[2018-04-04] MEDS ORDERED: CEFD300C3 PO (08:04)
--- NOTE | 2018-04-04 08:07 | Discharge Inst-Simple/Standard ---
Discharge Inst-Standard Discharge Medications New, Converted or Re-Newed RX: Call to Patients Pharmacy Patient Instructions/Follow Up Plan of Care/Instructions/FU: Omnicef 300 mg number 10 one twice a day. 2 office this Monday. Activity as Tolerated: Yes Discharge Diet: ADA GAURANG Fink DO Apr 04, 2018 08:07
[2018-04-04 08:44] VITALS: BP 136/63
[2018-04-04] MEDS: FAMOTIDINE 20 MG (PEPCID) TABLET PO SCH (09:15)
[2018-04-04] MEDS: ENTRESTO PO SCH (09:17)
[2018-04-04] MEDS: ROSUVASTATIN 5 MG (CRESTOR) TABLET PO SCH (09:17)
[2018-04-04] MEDS: ASPIRIN 325 MG (5 GR) TABLET PO SCH (09:17)
[2018-04-04] MEDS: FUROSEMIDE 40 MG (LASIX) TAB PO SCH (09:17)
[2018-04-04] MEDS: cefTRIAXone 1,000 MG/SWFI 10 ML IV PUSH IV SCH ×2 (09:22)
--- NOTE | 2018-04-04 21:10 | Progress Note ---
Subjective Date Seen by a Provider: Apr 04, 2018 Time Seen by a Provider: 08:50 Subjective/Events-last exam patient states area fills smaller to him. He is not having any pain or discomfort in the lower scrotum and perineal area. Patient wanting to go home. He is afebrile. His white blood cell count is decreasing. Focused Exam Lactate Level 04/02/18 12:27: Lactic Acid Level 1.82 04/02/18 15:06: Lactic Acid Level 2.53*H 04/02/18 17:15: Lactic Acid Level 2.17*H Objective Exam Vital Signs Date Time Temp Pulse Resp B/P (MAP) Pulse Ox O2 Delivery O2 Flow Rate FiO2 04/04/18 10:10 04/04/18 08:44 97.7 82 20 136/63 (87) 96 Room Air 04/03/18 23:27 97.6 75 14 157/83 (107) 100 Room Air I & O 04/04/18 06:59 Intake Total 1592.5 ml Output Total 2200 ml Balance -607.5 ml Capillary Refill : Less Than 3 SecondsLess Than 3 Seconds General Appearance: No Apparent Distress, WD/WN HEENT: Normal ENT Inspection Neck: Full Range of Motion, Normal Inspection Respiratory: Chest Non Tender, No Accessory Muscle Use, No Respiratory Distress Cardiovascular: Regular Rate, Rhythm Gastrointestinal: non tender, soft, no organomegaly Extremity: Non Tender Neurologic/Psychiatric: Alert, Oriented x3, No Motor/Sensory Deficits, Normal Mood/Affect Skin: Normal Color Other comments lower portion scrotum less edema and the abscess area that has previous of an open just with minimal induration no drainage no significant erythema Results Lab Laboratory Tests 04/04/18 04:49: Glucometer 187H 04/04/18 05:34: White Blood Count 12.7H, Red Blood Count 4.87, Hemoglobin 14.8, Hematocrit 44, Mean Corpuscular Volume 91, Mean Corpuscular Hemoglobin 30, Mean Corpuscular Hemoglobin Concent 34, Red Cell Distribution Width 13.6, Platelet Count 250, Mean Platelet Volume 10.3, Sodium Level 137, Potassium Level 3.7, Chloride Level 101, Carbon Dioxide Level 23, Anion Gap 13, Blood Urea Nitrogen 16, Creatinine 1.05, Estimat Glomerular Filtration Rate > 60, BUN/Creatinine Ratio 15, Glucose Level 197H, Calcium Level 9.7 Microbiology 04/01/18 Blood Culture - Preliminary, Resulted No growth 04/01/18 Gram Stain - Final, Complete 04/01/18 Wound Culture - Final, Complete See Report Assessment/Plan Assessment/Plan Assessment/Plan Abscess between rectum and testicles. Diabetes. History of endocarditis. patient is feeling better. His white count continues to decrease and the perineal area was appears to be improved. Patient wanting to go home. Seen with Dr. Hermosillo, he's going to have close follow-up or surgical intervention needed at this time. If any changes patient advised to be seen at that time. Clinical Quality Measures DVT/VTE Risk/Contraindication: Risk Factor Score Per Nursin RFS Level Per Nursing on Admit: 1=Low/No VTE PPX PITA VELASQUEZ DO Apr 04, 2018 21:10
--- NOTE | 2018-04-05 07:24 | Discharge Summary ---
Diagnosis/Chief Complaint Date of Admission Apr 01, 2018 at 11:00 Date of Discharge Apr 04, 2018 at 10:15 Discharge Date: Apr 04, 2018 Discharge Diagnosis Abscess between testicles and penis Diabetes. Leukocytosis. Elevated lactic acid. History of endocarditis.. Cardiomyopathy. Cutaneous abscess apparently a.m. GERD. Hyperlipidemia. Nicotine dependence. Presence of cardiac pacemaker. Presence of prosthetic heart valve. Reason Hospital Visit Patient has an abscess between rectum and testicles. Abscess open. Serum lactic acid elevated. Emergency room physician and admitted patient. Patient has history of endocarditis 2 taken care of at [facility]. Patient known diabetic. Previous surgery open heart 2. Pacemaker 3. [place] teeth. 2 hernia surgeries Discharge Summary Procedures Abscess opened in the ER Consultations Surgeon Discharge Physical Examination Allergies: Coded Allergies: morphine (Verified Allergy, Severe, RESP ARREST, 03/14/18) meropenem (Verified Allergy, Intermediate, rash, 04/01/18) topiramate (Verified Allergy, Intermediate, MADE HAIR FALL OUT, 03/14/18) tramadol (Unverified Allergy, Mild, 03/14/18) Vitals & I&Os Vital Signs Date Time Temp Pulse Resp B/P (MAP) Pulse Ox O2 Delivery O2 Flow Rate FiO2 04/04/18 10:10 04/04/18 08:44 97.7 82 20 96 Room Air Hospital Course Patient discharged home on Omnicef. To be seen in office this Monday Labs (last 24 hrs) Laboratory Tests 04/01/18 09:30: White Blood Count 21.4H, Red Blood Count 5.12, Hemoglobin 15.5, Hematocrit 45, Mean Corpuscular Volume 89, Mean Corpuscular Hemoglobin 30, Mean Corpuscular Hemoglobin Concent 34, Red Cell Distribution Width 13.4, Platelet Count 248, Mean Platelet Volume 11.0H, Neutrophils (%) (Auto) 85H, Lymphocytes (%) (Auto) 8L, Monocytes (%) (Auto) 5, Eosinophils (%) (Auto) 2, Basophils (%) (Auto) 0, Neutrophils # (Auto) 18.3H, Lymphocytes # (Auto) 1.6, Monocytes # (Auto) 1.0, Eosinophils # (Auto) 0.5H, Basophils # (Auto) 0.1, Neutrophils % (Manual) 90, Lymphocytes % (Manual) 8, Eosinophils % (Manual) 2, Blood Morphology Comment NORMAL, Sodium Level 133L, Potassium Level 3.9, Chloride Level 94L, Carbon Dioxide Level 22, Anion Gap 17H, Blood Urea Nitrogen 16, Creatinine 1.27, Estimat Glomerular Filtration Rate > 60, BUN/Creatinine Ratio 13, Glucose Level 246H, Lactic Acid Level 3.11*H, Calcium Level 9.8, Corrected Calcium 9.5, Total Bilirubin 1.0, Aspartate Amino Transf (AST/SGOT) 39H, Alanine Aminotransferase ( ALT/SGPT) 43, Alkaline Phosphatase 82, Total Protein 7.7, Albumin 4.4 04/01/18 11:26: Lactic Acid Level 3.10*H 04/01/18 20:01: Glucometer 440*H 04/02/18 05:36: Glucometer 371H 04/02/18 09:35: White Blood Count 24.2H, Red Blood Count 4.89, Hemoglobin 14.6, Hematocrit 44, Mean Corpuscular Volume 90, Mean Corpuscular Hemoglobin 30, Mean Corpuscular Hemoglobin Concent 33, Red Cell Distribution Width 13.4, Platelet Count 260, Mean Platelet Volume 10.6H, Sodium Level 133L, Potassium Level 4.1, Chloride Level 96L, Carbon Dioxide Level 22, Anion Gap 15H, Blood Urea Nitrogen 20H, Creatinine 1.38H, Estimat Glomerular Filtration Rate > 60, BUN/Creatinine Ratio 14, Glucose Level 363H, Lactic Acid Level 2.59*H, Calcium Level 9.6 04/02/18 11:13: Glucometer 333H 04/02/18 12:27: Lactic Acid Level 1.82, Vancomycin Level Trough 17.1 04/02/18 15:06: Lactic Acid Level 2.53*H 04/02/18 16:07: Glucometer 370H 04/02/18 17:15: Lactic Acid Level 2.17*H 04/02/18 20:35: Glucometer 283H 04/03/18 05:40: Glucometer 231H 04/03/18 07:30: White Blood Count 15.6H, Red Blood Count 4.78, Hemoglobin 14.3, Hematocrit 44, Mean Corpuscular Volume 91, Mean Corpuscular Hemoglobin 30, Mean Corpuscular Hemoglobin Concent 33, Red Cell Distribution Width 13.3, Platelet Count 223, Mean Platelet Volume 10.9H, Sodium Level 137, Potassium Level 3.7, Chloride Level 102, Carbon Dioxide Level 23, Anion Gap 12, Blood Urea Nitrogen 18, Creatinine 1.23, Estimat Glomerular Filtration Rate > 60, BUN/Creatinine Ratio 15, Glucose Level 260H, Calcium Level 9.6 04/03/18 11:44: Glucometer 201H 04/03/18 16:23: Glucometer 259H 04/03/18 20:41: Glucometer 227H 04/04/18 04:49: Glucometer 187H 04/04/18 05:34: White Blood Count 12.7H, Red Blood Count 4.87, Hemoglobin 14.8, Hematocrit 44, Mean Corpuscular Volume 91, Mean Corpuscular Hemoglobin 30, Mean Corpuscular Hemoglobin Concent 34, Red Cell Distribution Width 13.6, Platelet Count 250, Mean Platelet Volume 10.3, Sodium Level 137, Potassium Level 3.7, Chloride Level 101, Carbon Dioxide Level 23, Anion Gap 13, Blood Urea Nitrogen 16, Creatinine 1.05, Estimat Glomerular Filtration Rate > 60, BUN/Creatinine Ratio 15, Glucose Level 197H, Calcium Level 9.7 Microbiology 04/01/18 Blood Culture - Preliminary, Resulted No growth 04/01/18 Gram Stain - Final, Complete 04/01/18 Wound Culture - Final, Complete See Report Laboratory Tests 04/01/18 09:30 04/02/18 09:35 04/03/18 07:30 04/04/18 05:34 Pending Labs Microbiology Date/Time Source Procedure Growth Status 04/01/18 11:26 Peripheral Not Otherwise Specified Blood Culture - Preliminary No growth Resulted 04/01/18 09:30 Peripheral Rt Ac Blood Culture - Preliminary No growth Resulted 04/01/18 09:00 Cyst/Abscess Perineal Gram Stain - Final Complete 04/01/18 09:00 Wound Culture - Final See Report Complete Laboratory Tests 04/01/18 09:30: White Blood Count 21.4, Red Blood Count 5.12, Hemoglobin 15.5, Hematocrit 45, Mean Corpuscular Volume 89, Mean Corpuscular Hemoglobin 30, Mean Corpuscular Hemoglobin Concent 34, Red Cell Distribution Width 13.4, Platelet Count 248, Mean Platelet Volume 11.0, Neutrophils (%) (Auto) 85, Lymphocytes (%) (Auto) 8, Monocytes (%) (Auto) 5, Eosinophils (%) (Auto) 2, Basophils (%) (Auto) 0, Neutrophils # (Auto) 18.3, Lymphocytes # (Auto) 1.6, Monocytes # (Auto) 1.0, Eosinophils # (Auto) 0.5, Basophils # (Auto) 0.1, Neutrophils % (Manual) 90, Lymphocytes % (Manual) 8, Eosinophils % (Manual) 2, Blood Morphology Comment NORMAL, Sodium Level 133, Potassium Level 3.9, Chloride Level 94, Carbon Dioxide Level 22, Anion Gap 17, Blood Urea Nitrogen 16, Creatinine 1.27, Estimat Glomerular Filtration Rate > 60, BUN/Creatinine Ratio 13, Glucose Level 246, Lactic Acid Level 3.11, Calcium Level 9.8, Corrected Calcium 9.5, Total Bilirubin 1.0, Aspartate Amino Transf (AST/SGOT) 39, Alanine Aminotransferase ( ALT/SGPT) 43, Alkaline Phosphatase 82, Total Protein 7.7, Albumin 4.4 04/01/18 11:26: Lactic Acid Level 3.10 04/01/18 20:01: Glucometer 440 04/02/18 05:36: Glucometer 371 04/02/18 09:35: White Blood Count 24.2, Red Blood Count 4.89, Hemoglobin 14.6, Hematocrit 44, Mean Corpuscular Volume 90, Mean Corpuscular Hemoglobin 30, Mean Corpuscular Hemoglobin Concent 33, Red Cell Distribution Width 13.4, Platelet Count 260, Mean Platelet Volume 10.6, Sodium Level 133, Potassium Level 4.1, Chloride Level 96, Carbon Dioxide Level 22, Anion Gap 15, Blood Urea Nitrogen 20, Creatinine 1.38, Estimat Glomerular Filtration Rate > 60, BUN/Creatinine Ratio 14, Glucose Level 363, Lactic Acid Level 2.59, Calcium Level 9.6 04/02/18 11:13: Glucometer 333 04/02/18 12:27: Lactic Acid Level 1.82, Vancomycin Level Trough 17.1 04/02/18 15:06: Lactic Acid Level 2.53 04/02/18 16:07: Glucometer 370 04/02/18 17:15: Lactic Acid Level 2.17 04/02/18 20:35: Glucometer 283 04/03/18 05:40: Glucometer 231 04/03/18 07:30: White Blood Count 15.6, Red Blood Count 4.78, Hemoglobin 14.3, Hematocrit 44, Mean Corpuscular Volume 91, Mean Corpuscular Hemoglobin 30, Mean Corpuscular Hemoglobin Concent 33, Red Cell Distribution Width 13.3, Platelet Count 223, Mean Platelet Volume 10.9, Sodium Level 137, Potassium Level 3.7, Chloride Level 102, Carbon Dioxide Level 23, Anion Gap 12, Blood Urea Nitrogen 18, Creatinine 1.23, Estimat Glomerular Filtration Rate > 60, BUN/Creatinine Ratio 15, Glucose Level 260, Calcium Level 9.6 04/03/18 11:44: Glucometer 201 04/03/18 16:23: Glucometer 259 04/03/18 20:41: Glucometer 227 04/04/18 04:49: Glucometer 187 04/04/18 05:34: White Blood Count 12.7, Red Blood Count 4.87, Hemoglobin 14.8, Hematocrit 44, Mean Corpuscular Volume 91, Mean Corpuscular Hemoglobin 30, Mean Corpuscular Hemoglobin Concent 34, Red Cell Distribution Width 13.6, Platelet Count 250, Mean Platelet Volume 10.3, Sodium Level 137, Potassium Level 3.7, Chloride Level 101, Carbon Dioxide Level 23, Anion Gap 13, Blood Urea Nitrogen 16, Creatinine 1.05, Estimat Glomerular Filtration Rate > 60, BUN/Creatinine Ratio 15, Glucose Level 197, Calcium Level 9.7 Discharge Home Medications: Active Scripts Active Cefdinir 300 Mg Capsule 300 Mg PO BID 5 Days Reported Androgel (Testosterone) 5 Gm Gel.packet 5 Gm TD DAILY Trilipix (Fenofibric Acid (Choline)) 135 Mg Capsule.dr 135 Mg PO DAILY Crestor (Rosuvastatin Calcium) 5 Mg Tablet 5 Mg PO HS Aspirin 325 Mg Tablet 325 Mg PO DAILY Polyethylene Glycol 3350 17 Gm Powd.pack 17 Gm PO DAILY PRN Claritin (Loratadine) 10 Mg Capsule 10 Mg PO DAILY Metformin HCl ER (Metformin HCl) 500 Mg Tab.er.24 1,000 Mg PO BID Lantus Solostar (Insulin Glargine,Hum.rec.anlog) 100 Unit/1 Ml Insuln.pen 30 Unit SQ HS Novolog Flexpen (Insulin Aspart) 300 Units/3 Ml Solution 7-10 Units SQ SLIDING/ SCALE TID Famotidine 20 Mg Tablet 20 Mg PO BID Entresto 49 mg-51 mg Tablet (Sacubitril/Valsartan) 1 Each Tablet 1 Tab PO BID Furosemide 40 Mg Tablet 40 Mg PO DAILY Instructions to patient/family Please see electronic discharge instructions given to patient. Clinical Quality Measures DVT/VTE Risk/Contraindication: Risk Factor Score Per Nursin RFS Level Per Nursing on Admit: 1=Low/No VTE PPX GAURANG TERRELL DO Apr 05, 2018 07:24
--- NOTE | 2018-04-05 10:39 | Physician Query Clarification ---
PQ-Further Specificity Admission/Discharge Admission Date: Apr 01, 2018 at 11:00 Discharge Date: Apr 04, 2018 at 10:15 The medical record reflects the following clinical scenario: History/Risk Factors: abscess perineum, DM type 2, HTN,cardiomyopathy, heart valve prosthesis Clinical Findings: abscess perineum Treatment: I&D perineum Question: Can you further specify the depth of the I&D per the clinical indicators above? Please document below. 1. skin 2. subcutaneous/fascia 3. Other, with explanation of the clinical findings. 4. Clinically undetermined, no explanation for the clinical findings. PHYSICIAN RESPONSE Can you specify per above: 1 In responding to this query, please exercise your independent professional judgment. The purpose of this communication is to more accurately reflect the complexity of your patients condition. The fact that a question is asked does not imply that any particular answer is desired or expected. Thank you for your timely response to this clarification. Requestors name: [place] THIS PHYSICIAN QUERY FORM IS A PERMANENT PART OF THE MEDICAL RECORD BISMARK HYLTON Apr 05, 2018 10:39 NOA KOCH MD Apr 18, 2018 08:11
== END 2018-04-04 10:15 | disposition home or self-care (01) | DRG 580 ==
LOC: EDUNIT# 08:38 → ER 08:39 → 4TH 11:00
PROVIDERS: ADMIT Internal Medicine; ATTEND Internal Medicine
PROC: 0H99XZZ Drainage of Perineum Skin, External Approach (ICD-10-PCS; principal; 2018-04-01)
DX: L02.215 Cutaneous abscess of perineum (principal); I10 Essential (primary) hypertension; I42.9 Cardiomyopathy, unspecified; F17.210 Nicotine dependence, cigarettes, uncomplicated; E11.40 Type 2 diabetes mellitus with diabetic neuropathy, unspecified; K21.9 Gastro-esophageal reflux disease without esophagitis; M54.9 Dorsalgia, unspecified; F90.9 Attention-deficit hyperactivity disorder, unspecified type; F41.9 Anxiety disorder, unspecified; Z95.0 Presence of cardiac pacemaker; E78.5 Hyperlipidemia, unspecified; Z79.4 Long term (current) use of insulin; Z86.718 Personal history of other venous thrombosis and embolism; Z86.79 Personal history of other diseases of the circulatory system; Z95.3 Presence of xenogenic heart valve
CPT/HCPCS: 36415; 71045; 76999; 80048; 80053; 80202; 82962; 83605; 85007; 85027; 87040; 87070; 87205; 93005; 96365

== ENCOUNTER → 2018-07-06 | Outpatient (CLI) | payer MEDICARE, MEDICAID ==
[~2018-07-06] MED LIST changes: +ASPI-808 PO; +CEFD300C3 PO; +FENO135C PO; -RIVA20TA PO; +RIVA20TA2 PO; +ROSU5TAB PO; +TEST5GEL TD
== END ==
LOC: CARD 13:50
PROVIDERS: ATTEND Internal Medicine Interventional Cardiology
DX: I48.0 Paroxysmal atrial fibrillation (principal); I44.2 Atrioventricular block, complete; I35.0 Nonrheumatic aortic (valve) stenosis; Z95.810 Presence of automatic (implantable) cardiac defibrillator; Z45.02 Encounter for adjustment and management of automatic implantable cardiac defibrillator; Z95.2 Presence of prosthetic heart valve
CPT/HCPCS: 93306

== ENCOUNTER 2018-10-20 21:01 | Emergency (ER) | payer MEDICARE, MEDICAID ==
[~2018-10-20] VITALS: Ht 188 cm; Wt 158.8 kg
[~2018-10-20 21:01] MED LIST changes: -OMEP20CA12; +OMEP20CA13
[2018-10-20] MEDS ORDERED: INSU100I29 (22:09)
[2018-10-20] MEDS ORDERED: METF500T8 (22:09)
[2018-10-20] MEDS ORDERED: SILVER SULFADIAZINE 50 GM CREAM ONE (22:11)
[2018-10-20] MEDS ORDERED: TETANUS,DIPTH,PERTUSS P/F (BOOSTRIX) 0.5 ML VIAL IM ONE (22:15)
[2018-10-20] MEDS ORDERED: TRIM/SULFAMETH 160/800 (SEPTRA DS) TAB PO ONE (22:15)
[2018-10-20] MEDS ORDERED: SULF1TAB35 PO (22:20)
[2018-10-20] MEDS ORDERED: SILV20CR14 TP (22:20)
--- NOTE | 2018-10-20 22:20 | ED Integumentary General ---
General Chief Complaint: Skin/Wound Problems Stated Complaint: "SKIN TURNING RED/BLISTERING AND FALLING OFF" Nursing Triage Note: red abdominal wound Allergies and Home Medications Allergies Coded Allergies: morphine (Verified Allergy, Severe, RESP ARREST, 03/14/18) meropenem (Verified Allergy, Intermediate, rash, 04/01/18) topiramate (Verified Allergy, Intermediate, MADE HAIR FALL OUT, 03/14/18) tramadol (Unverified Allergy, Mild, 03/14/18) Home Medications Aspirin 325 Mg Tablet, 325 MG PO DAILY, (Reported) Fenofibric Acid (Choline) 135 Mg Capsule.dr, 135 MG PO DAILY, (Reported) Furosemide 40 Mg Tablet, 40 MG PO DAILY, (Reported) Metformin HCl 500 Mg Tab.er.24, 1,000 MG PO BID, (Reported) Rosuvastatin Calcium 5 Mg Tablet, 5 MG PO HS, (Reported) Sacubitril/Valsartan 1 Each Tablet, 1 TAB PO BID, (Reported) Testosterone 5 Gm Gel.packet, 5 GM TD DAILY, (Reported) Past [id number]-Enzuut Hx Patient Social History Alcohol Use: Regular Use Number of Drinks Today: 2 Alcohol Beverage of Choice: Beer, Vodka Recreational Drug Use: Yes Drug of Choice: cannibus Smoking Status: Current Everyday Smoker Type Used: Cigarettes Former Smoker, Quit: June 26, 2016 Recent Foreign Travel: No Contact w/Someone Who Travel: No Recent Infectious Disease Expo: No Recent Hopitalizations: No Physical Abuse: No Sexual Abuse: No Mistreated: No Fear: No Immunizations Up To Date Tetanus Booster (TDap): Unknown PED Vaccines UTD: Yes Date of Pneumonia Vaccine: Dec 08, 2015 Date of Influenza Vaccine: Nov 22, 2015 Seasonal Allergies Seasonal Allergies: Yes (chronic congestion ) Past Medical History Surgeries: Yes (bovine aortic/mitral valve replacement X2, hernia) Abdominal, Cardiac, Pacemaker, Testicular, Valve Replacement Respiratory: No Currently Using CPAP: No Currently Using BIPAP: No Cardiac: Yes (has bi v pacemaker) Cardiomyopathy, Endocarditis, Hypertension, Valvular Heart Disease Neurological: Yes Neuropathy Reproductive Disorders: No Sexually Transmitted Disease: No HIV/AIDS: No Genitourinary: No Gastrointestinal: Yes Gastroesophageal Reflux Musculoskeletal: Yes Chronic Back Pain Endocrine: Yes Diabetes, Insulin dep HEENT: No Loss of Vision: Denies Hearing Impairment: Denies Cancer: No Psychosocial: Yes ADD/ADHD, Anxiety Integumentary: Yes Psoriasis Blood Disorders: Yes Adverse Reaction/Blood Tranf: No Family Medical History Diabetes mellitus 19 MOTHER Hepatitis C No Pertinent Family Hx Physical Exam Vital Signs Vital Signs - First Documented 10/20/18 21:59 Temp 97.9 Pulse 92 Resp 20 B/P (MAP) 147/91 (109) Pulse Ox 97 O2 Delivery Room Air Capillary Refill : Less Than 3 Seconds Progress/Results/Core Measures Results/Orders My Orders Orders - ISAAC INGRAM DO Dipht,Pertuss(Acell),Tet Adult (Boostrix (10/20/18 22:15) Silver Sulfadiazine 50 Gm (Ssd 1% 50 Gm) (10/21/18 09:00) Sulfamethoxazole/Trimet Ds Tab (Bactrim (10/20/18 22:15) Wound Dressing-Ed (10/20/18 22:10) Vital Signs/I&O 10/20/18 21:59 Temp 97.9 Pulse 92 Resp 20 B/P (MAP) 147/91 (109) Pulse Ox 97 O2 Delivery Room Air Blood Pressure Mean: 109 Departure Impression Primary Impression: Localized skin eruption Additional Impression: [id number] (DPT) vaccination administered at current visit Disposition: HOME, SELF-CARE Condition: Stable Departure-Patient Inst. Referrals: GAURANG TERRELL DO (PCP/Family) Primary Care Physician Patient Instructions: Diphtheria and Tetanus Toxoids, and Acellular Pertussis Vaccine, Skin Godoy (DC), Wound Care (DC) Add. Discharge Instructions: CLEAN WOUND TWICE A DAY WITH ANTIBACTERIAL SOAP AND WATER, APPLY ANTIBIOTIC OINTMENT AND FRESH DRESSING TO WOUND TWICE A DAY TYLENOL AND MOTRIN NEEDED FOR PAIN FOLLOW UP WITH DR. TERRELL ON MONDAY FOR FURTHER CARE, RETURN TO ER IF WORSE All discharge instructions reviewed with patient and/or family. Voiced understanding. Scripts Silver Sulfadiazine (Silvadene) 20 Gm Cream..g. 0 TP BID, #1 TUBE Prov: ISAAC INGRAM DO 10/20/18 Sulfamethoxazole/Trimethoprim (Bactrim Ds Tablet) 1 Each Tablet 1 EACH PO BID, #20 TAB Prov: ISAAC INGRAM DO 10/20/18 ISAAC INGRAM DO Oct 20, 2018 22:20
[2018-10-20 22:26] VITALS: BP 147/91
[2018-10-21] MEDS ORDERED: SILVER SULFADIAZINE 50 GM CREAM TOP SCH (09:00)
== END 2018-10-20 22:28 | disposition home or self-care (01) ==
LOC: EDUNIT# 21:01 → ER 21:02
DX: R21 Rash and other nonspecific skin eruption (principal); I10 Essential (primary) hypertension; I42.9 Cardiomyopathy, unspecified; E11.40 Type 2 diabetes mellitus with diabetic neuropathy, unspecified; K21.9 Gastro-esophageal reflux disease without esophagitis; F41.9 Anxiety disorder, unspecified; F90.9 Attention-deficit hyperactivity disorder, unspecified type; F17.210 Nicotine dependence, cigarettes, uncomplicated; Z95.2 Presence of prosthetic heart valve; Z95.0 Presence of cardiac pacemaker; Z23 Encounter for immunization; Z88.5 Allergy status to narcotic agent; Z88.1 Allergy status to other antibiotic agents; Z79.82 Long term (current) use of aspirin; Z79.84 Long term (current) use of oral hypoglycemic drugs
CPT/HCPCS: 90471; 90715; 99284

== ENCOUNTER 2019-02-23 20:13 | Emergency (ER) | payer MEDICARE, MEDICAID ==
[~2019-02-23] VITALS: Ht 187.9 cm; Wt 161.0 kg
[~2019-02-23 20:13] MED LIST changes: +INSU100I29; +METF500T8; +SILV20CR14 TP
[2019-02-23] MEDS ORDERED: NS IV 1000 ML 1,000 ML IV SCH ×2 (20:28→20:41)
--- NOTE | 2019-02-23 20:37 | ED GI ---
General Chief Complaint: Rect Problems Stated Complaint: BLOOD IN STOOL Nursing Triage Note: PT TO ED W/ REPORT OF BLOOD IN STOOL ONSET 1200. PT DOES REPORT TAKES ASA 325MG DAILY. DENIES N/V/D, ABD PAIN AT THIS TIME. Sepsis Screen: No Definite Risk Source of Information: Patient History of Present Illness Date Seen by Provider: Feb 23, 2019 Time Seen by Provider: 20:25 Initial Comments PT ARRIVES VIA POV FROM HOME C/O BLOOD IN HIS STOOL TODAY STATES HE HAD A NORMAL BM AROUND NOON, AND THERE WAS A SMALL SPOT OF BRIGHT RED BLOOD ON TISSUE WHEN HE WIPED. STATES HE HAD ANOTHER NORMAL BM TONIGHT, AND WHEN HE LOOKED IN THE TOILET THERE WERE "LITTLE VEINS" OF BLOOD IN THE TOILET--DESCRIBES THEM VERY SMALL DENIES CONSTIPATION OR STRAINING WITH BM'S DENIES ANY RECTAL PAIN DENIES ABDOMINAL PAIN DENIES NAUSEA/VOMITING, AND HAS HAD A NORMAL APPETITE AND HAS BEEN EATING NORMALLY PT DRINKS ON A REGULAR BASIS AND HAD A "TALL BOY" BEER THIS AM NO FEVER NO URINARY DIFFICULTIES NO DIZZINESS, WEAKNESS OR SYNCOPE NO HISTORY OF SIMILAR, NO HISTORY OF HEMORRHOIDS OR ANY OTHER GI PROBLEMS PT TAKES 324 MG ASPIRIN DAILY FOR EXTENSIVE CARDIAC ISSUES. HAD BEEN ON XARELTO, STATES HE NO LONGER TAKES THAT. 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 TERRELL CARDIOLOGISTS: SEES BOTH DR. FARRELL AND DR. REILLY SURGEON: DR. VELASQUEZ Allergies and Home Medications Allergies Coded Allergies: morphine (Verified Allergy, Severe, RESP ARREST, 03/14/18) meropenem (Verified Allergy, Intermediate, rash, 04/01/18) topiramate (Verified Allergy, Intermediate, MADE HAIR FALL OUT, 03/14/18) tramadol (Unverified Allergy, Mild, 03/14/18) Home Medications Aspirin 325 Mg Tablet, 325 MG PO DAILY, (Reported) Fenofibric Acid (Choline) 135 Mg Capsule.dr, 135 MG PO DAILY, (Reported) Furosemide 40 Mg Tablet, 40 MG PO DAILY, (Reported) Metformin HCl 500 Mg Tab.er.24, 1,000 MG PO BID, (Reported) Pantoprazole Sodium 40 Mg Tablet.dr, 40 MG PO DAILY Prescribed by: ISAAC INGRAM on 02/23/19 2339 Rosuvastatin Calcium 5 Mg Tablet, 5 MG PO HS, (Reported) Sacubitril/Valsartan 1 Each Tablet, 1 TAB PO BID, (Reported) Silver Sulfadiazine 20 Gm Cream..g., 0 TP BID Prescribed by: ISAAC INGRAM on 10/20/182219 Sulfamethoxazole/Trimethoprim 1 Each Tablet, 1 EACH PO BID Prescribed by: ISAAC INGRAM on 10/20/182219 Testosterone 5 Gm Gel.packet, 5 GM TD DAILY, (Reported) Patient Home Medication List Home Medication List Reviewed: Yes Review of Systems Review of Systems Constitutional: no symptoms reported; No dizziness, No malaise Respiratory: No Symptoms Reported Cardiovascular: No Symptoms Reported Gastrointestinal: See HPI; Denies Abdomen Distended, Denies Abdominal Pain, Denies Constipated, Denies Diarrhea, Denies Difficulty Swallowing, Denies Nausea, Denies Poor Appetite, Denies Poor Fluid Intake; Rectal Bleeding; Denies Vomiting Genitourinary: No Symptoms Reported Musculoskeletal: no symptoms reported Skin: no symptoms reported Psychiatric/Neurological: No Symptoms Reported Endocrine: No Symptoms Reported Hematologic/Lymphatic: No Symptoms Reported Past Riikipg-Kucwae-Gqdyir Hx Past Med/Social Hx: Reviewed and Corrections made Patient Social History Alcohol Use: Regular Use (VERY HEAVY, DAILY USE BY HX-AT LEAST 3-1.75 LITERS OF HARD LIQUOR/WEEK; CLAIMS "NOT THAT MUCH" NOW, BUT STILL DRINKS ON REGULAR BASIS. ) Alcohol Beverage of Choice: Beer, Vodka Recreational Drug Use: Yes (THC, METH, MUSHROOMS) Drug of Choice: THC, METH, MUSHROOMS Smoking Status: Current Everyday Smoker (1 PPD) Type Used: Cigarettes (1 PPD) Recent Foreign Travel: No Contact w/Someone Who Travel: No Recent Infectious Disease Expo: No Recent Hopitalizations: No Immunizations Up To Date Tetanus Booster (TDap): Unknown PED Vaccines UTD: Yes Date of Pneumonia Vaccine: Dec 08, 2015 Date of Influenza Vaccine: Nov 22, 2015 Seasonal Allergies Seasonal Allergies: Yes (chronic congestion ) Past Medical History Surgeries: Yes (BOVINE AORTIC/MITRAL VALVE REPLACEMENT X 2;INGUINAL HERNIA REPAIR;) Abdominal, Cardiac, Pacemaker, Testicular, Valve Replacement Respiratory: No Currently Using CPAP: No Currently Using BIPAP: No Cardiac: Yes (BI-VENT PACEMAKER; AORTIC AND MITRAL VALVE REPLACEMENTS X 2; CHF;) Atrial Fibrillation, Cardiomyopathy, Congenital Heart Disease, Endocarditis, Hypertension, Valvular Heart Disease Neurological: Yes Neuropathy Reproductive Disorders: Yes Sexually Transmitted Disease: No HIV/AIDS: No Genitourinary: Yes (RENAL INFARCT; TESTICULAR SURGERY; ERECTILE DYSFUNCTION) Gastrointestinal: Yes (INGUINAL HERNIA REPAIR; SPLENIC INFARCT) Abdominal Hernia, Gastroesophageal Reflux Musculoskeletal: Yes Chronic Back Pain Endocrine: Yes (EXTREME NON-COMPLIANCE IN ALL ASPECTS OF CARE; OBESITY) Diabetes, Insulin dep HEENT: No Loss of Vision: Denies Hearing Impairment: Denies Cancer: No Psychosocial: Yes (POLYSUBSTANCE ABUSE) ADD/ADHD, Anxiety Integumentary: Yes Psoriasis Blood Disorders: Yes Adverse Reaction/Blood Tranf: No Family Medical History Diabetes mellitus 19 MOTHER Hepatitis C No Pertinent Family Hx ENDOCARDITIS WITH MULTIPLE EMBOLI--SPLENIC AND RENAL INFARCTS; AORTIC AND MITRAL VALVE REPLACEMENTS WITH REPEAT VALVE REPLACEMENTS; PFO AND OUTFLOW TRACT REPAIRS 10/2015 PACEMAKER FOR COMPLETE HEART BLOCK--WAS IN ABDOMEN WHICH WAS REMOVED AND REPLACED TO RIGHT CHEST; CARDIOVERSION FOR ATRIAL FIBRILLATION; INGUINAL HERNIA REPAIR; TESTICULAR SURGERY; PICC LINE RIGHT ARM 10/2015--LATER REMOVED Physical Exam Vital Signs Vital Signs - First Documented 02/23/19 20:17 Pulse 104 Resp 20 B/P (MAP) 134/74 (94) Pulse Ox 97 O2 Delivery Room Air Capillary Refill : Less Than 3 Seconds Height/Weight/BMI Height: 6'2.00" Weight: 350lbs. 0.0oz. 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 II-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 nml as tested, no motor/sensory deficits, alert, normal mood/affect, oriented x 3 Skin: normal color, warm/dry Progress/Results/Core Measures Results/Orders Lab Results Laboratory Tests Test 02/23/19 21:00 02/23/19 22:14 Range/Units White Blood Count 14.3 H 4.3-11.0 10^3/uL Red Blood Count 5.35 4.35-5.85 10^6/uL Hemoglobin 16.2 13.3-17.7 G/DL Hematocrit 47 40-54 % Mean Corpuscular Volume 88 80-99 FL Mean Corpuscular Hemoglobin 30 25-34 PG Mean Corpuscular Hemoglobin Concent 34 32-36 G/DL Red Cell Distribution Width 12.4 10.0-14.5 % Platelet Count 307 130-400 10^3/uL Mean Platelet Volume 10.5 H 7.4-10.4 FL Neutrophils (%) (Auto) 71 42-75 % Lymphocytes (%) (Auto) 21 12-44 % Monocytes (%) (Auto) 6 0-12 % Eosinophils (%) (Auto) 1 0-10 % Basophils (%) (Auto) 0 0-10 % Neutrophils # (Auto) 10.1 H 1.8-7.8 X 10^3 Lymphocytes # (Auto) 3.0 1.0-4.0 X 10^3 Monocytes # (Auto) 0.9 0.0-1.0 X 10^3 Eosinophils # (Auto) 0.2 0.0-0.3 10^3/uL Basophils # (Auto) 0.1 0.0-0.1 10^3/uL Neutrophils % (Manual) 72 % Lymphocytes % (Manual) 16 % Monocytes % (Manual) 11 % Eosinophils % (Manual) 1 % Blood Morphology Comment NORMAL Prothrombin Time 12.7 12.2-14.7 SEC INR Comment 0.9 0.8-1.4 Activated Partial Thromboplast Time 29 24-35 SEC Sodium Level 139 135-145 MMOL/L Potassium Level 3.8 3.6-5.0 MMOL/L Chloride Level 102 98-107 MMOL/L Carbon Dioxide Level 22 21-32 MMOL/L Anion Gap 15 H 5-14 MMOL/L Blood Urea Nitrogen 15 7-18 MG/DL Creatinine 1.17 0.60-1.30 MG/DL Estimat Glomerular Filtration Rate > 60 BUN/Creatinine Ratio 13 Glucose Level 180 H 70-105 MG/DL Calcium Level 9.7 8.5-10.1 MG/DL Corrected Calcium 9.3 8.5-10.1 MG/DL Magnesium Level 1.6 1.6-2.4 MG/DL Total Bilirubin 0.3 0.1-1.0 MG/DL Aspartate Amino Transf (AST/SGOT) 28 5-34 U/L Alanine Aminotransferase (ALT/SGPT) 39 0-55 U/L Alkaline Phosphatase 57 40-136 U/L Total Protein 8.0 6.4-8.2 GM/DL Albumin 4.5 3.2-4.5 GM/DL Serum Alcohol < 10 <10 MG/DL Urine Color YELLOW Urine Clarity CLEAR Urine pH 6.5 5-9 Urine Specific [place] 1.010 L 1.016-1.022 Urine Protein NEGATIVE NEGATIVE Urine Glucose (UA) TRACE H NEGATIVE Urine Ketones NEGATIVE NEGATIVE Urine Nitrite NEGATIVE NEGATIVE Urine Bilirubin NEGATIVE NEGATIVE Urine Urobilinogen 0.2 < = 1.0 MG/DL Urine Leukocyte Esterase NEGATIVE NEGATIVE Urine RBC (Auto) NEGATIVE NEGATIVE Urine RBC NONE /HPF Urine WBC NONE /HPF Urine Crystals PRESENT H /LPF Urine Amorphous Sediment FEW SAMANTHA URATES H /LPF Urine Bacteria NEGATIVE /HPF Urine Casts NONE /LPF Urine Mucus NEGATIVE /LPF Urine Culture Indicated NO Urine Opiates Screen NEGATIVE NEGATIVE Urine Oxycodone Screen NEGATIVE NEGATIVE Urine Methadone Screen NEGATIVE NEGATIVE Urine Propoxyphene Screen NEGATIVE NEGATIVE Urine Barbiturates Screen NEGATIVE NEGATIVE Ur Tricyclic Antidepressants Screen NEGATIVE NEGATIVE Urine Phencyclidine Screen NEGATIVE NEGATIVE Urine Amphetamines Screen NEGATIVE NEGATIVE Urine Methamphetamines Screen NEGATIVE NEGATIVE Urine Benzodiazepines Screen NEGATIVE NEGATIVE Urine Cocaine Screen NEGATIVE NEGATIVE Urine Cannabinoids Screen NEGATIVE NEGATIVE My Orders Orders - ISAAC INGRAM DO Ed Iv/Invasive Line Start (02/23/19 20:28) Monitor-Rhythm Ecg Trace Only (02/23/19 20:28) Orthostatic Vital Signs (Adult (02/23/19 20:28) Cbc With Automated Diff (02/23/19 20:28) Comprehensive Metabolic Panel (02/23/19 20:28) Magnesium (02/23/19 20:28) Protime With Inr (02/23/19 20:28) Partial Thromboplastin Time (02/23/19 20:28) Ed Iv/Invasive Line Start (02/23/19 20:28) Ns Iv 1000 Ml (Sodium Chloride 0.9%) (02/23/19 20:28) Ct Abdomen/Pelvis W (02/23/19 20:36) Acute Abd Series (02/23/19 20:36) Ed Iv/Invasive Line Start (02/23/19 20:41) Ns Iv 1000 Ml (Sodium Chloride 0.9%) (02/23/19 20:41) Alcohol (02/23/19 21:04) Drug Screen Stat (Urine) (02/23/19 21:04) Ua Culture If Indicated (02/23/19 21:04) Manual Differential (02/23/19 21:00) Iohexol Injection (Omnipaque 350 Mg/Ml 1 (02/23/19 22:45) Received Contrast (Hold Metformin- Contr (02/23/19 22:45) Ns (Ivpb) (Sodium Chloride 0.9% Ivpb Bag (02/23/19 22:45) Pantoprazole Tablet (Protonix Tablet) (02/23/19 23:45) Medications Given in ED Vital Signs/I&O 02/23/19 02/23/19 02/23/19 20:17 20:56 23:53 Pulse 104 97 99 100 104 Resp 20 20 B/P (MAP) 134/74 (94) 131/88 (102) 125/84 (97) 133/91 (105) 122/84 (97) Pulse Ox 97 98 O2 Delivery Room Air Blood Pressure Mean: 94 Progress Progress Note : Progress Note NO BM OR RECTAL BLEEDING DURING ER STAY NO COMPLAINTS OF ANY KIND DURING ER STAY Diagnostic Imaging Comments ABDOMEN XRAYS--NO ACUTE PROCESS, PENDING RADIOLOGIST REVIEW CT ABDOMEN/PELVIS--NO ACUTE PROCESS, PER [facility] VIA FAX AT 2330 Reviewed: Reviewed by Me Departure Impression Primary Impression: Rectal bleeding Disposition: 01 HOME, SELF-CARE Condition: Stable Departure-Patient Inst. Referrals: PITA VELASQUEZ RICHARD A DO (PCP/Family) Primary Care Physician Patient Instructions: Bloody Stools, Adult (DC), Gastrointestinal Bleeding (DC) Add. Discharge Instructions: CLEAR LIQUIDS--WATER, BROTH, JELLO, GATORADE BRATS DIET--BANANAS, RICE, APPLESAUCE, TOAST, SALTINES NO ALCOHOL NO COFFEE, POP OR TEA FOLLOW UP WITH DR. VELASQUEZ NEXT WEEK FOR FURTHER CARE All discharge instructions reviewed with patient and/or family. Voiced understanding. Scripts Pantoprazole Sodium (Protonix) 40 Mg Tablet.dr 40 MG PO DAILY, #15 TAB Prov: ISAAC INGRAM DO 02/23/19 ISAAC INGRAM DO Feb 23, 2019 20:37
[2019-02-23 20:56] VITALS: BP_SYST 122; BP_SYST 131; BP_SYST 133; BP_DIAS 84; BP_DIAS 88; BP_DIAS 91
[2019-02-23 21:15] LABS: BASOPHILS # (AUTO) 0.1 10^3/uL (0.0-0.1); BASOPHILS % (AUTO) 0 % (0-10); EOSINOPHILS # (AUTO) 0.2 10^3/uL (0.0-0.3); EOSINOPHILS % (AUTO) 1 % (0-10); HEMATOCRIT 47 % (40-54); HEMOGLOBIN 16.2 G/DL (13.3-17.7); LYMPHOCYTES % (AUTO) 21 % (12-44); MEAN CORPUSCULAR HEMOGLOBIN 30 PG (25-34); MEAN CORPUSCULAR HGB CONC 34 G/DL (32-36); MEAN CORPUSCULAR VOLUME 88 FL (80-99); MEAN PLATELET VOLUME 10.5 FL (7.4-10.4); MONOCYTES # (AUTO) 0.9 X 10^3 (0.0-1.0); MONOCYTES % (AUTO) 6 % (0-12); NEUTROPHILS # (AUTO) 10.1 X 10^3 (1.8-7.8); NEUTROPHILS % (AUTO) 71 % (42-75); PLATELET COUNT 307 10^3/uL (130-400); RED CELL DISTRIBUTION WIDTH 12.4 % (10.0-14.5); WHITE BLOOD COUNT 14.3 10^3/uL (4.3-11.0)
[2019-02-23 21:22] LABS: INR 0.9 (0.8-1.4); PROTHROMBIN TIME PATIENT 12.7 SEC (12.2-14.7)
[2019-02-23 21:32] LABS: ALANINE AMINOTRANSFERASE 39 U/L (0-55); ALBUMIN 4.5 GM/DL (3.2-4.5); ALKALINE PHOSPHATASE 57 U/L (40-136); BILIRUBIN,TOTAL 0.3 MG/DL (0.1-1.0); BUN/CREATININE RATIO 13; CALCIUM 9.7 MG/DL (8.5-10.1); CARBON DIOXIDE 22 MMOL/L (21-32); CHLORIDE 102 MMOL/L (98-107); CREATININE SERUM 1.17 MG/DL (0.60-1.30); GFR ESTIMATED > 60; GLUCOSE 180 MG/DL (70-105); MAGNESIUM 1.6 MG/DL (1.6-2.4); POTASSIUM 3.8 MMOL/L (3.6-5.0); SODIUM 139 MMOL/L (135-145)
[2019-02-23 21:42] LABS: EOSINOPHILS % (MANUAL) 1 %; LYMPHOCYTES % (MANUAL) 16 %; MONOCYTES % (MANUAL) 11 %; NEUTROPHILS % (MANUAL) 72 %; RBC MORPH NORMAL
--- NOTE | 2019-02-23 21:51 | Diagnostic Imaging Report ---
INDICATION: Bloody stools since earlier in the day. TECHNIQUE: Single view chest with supine and upright radiographs of the abdomen. CORRELATION STUDY: Chest 04/01/2018. FINDINGS: Poststernotomy changes with a cardiac valve. Right-sided AICD. Heart size stable. Vasculature appears unchanged. Lung calixto appear generally clear. Gas-filled loops of bowel are noted throughout the abdomen with a nonobstructive appearance. No differential air-fluid levels. No free air. Prior left inguinal hernia repair. Additional clips in the right inguinal hernia. No evidence for abnormal intra-abdominal calcifications. Disconnected pacemaker leads are noted in the right abdomen. IMPRESSION: 1. Post sternotomy changes. Negative for acute abnormality of the chest. 2. Unremarkable appearing bowel gas pattern. Dictated by: Dictated on workstation # [id number]
[2019-02-23 22:22] LABS: BILIRUBIN,URINE NEGATIVE (NEGATIVE); CLARITY,URINE CLEAR; COLOR,URINE YELLOW; GLUCOSE, URINE (UA) TRACE (NEGATIVE); KETONES,URINE NEGATIVE (NEGATIVE); LEUKOCYTE ESTERASE ,URINE NEGATIVE (NEGATIVE); NITRITE,URINE NEGATIVE (NEGATIVE); PH,URINE 6.5 (5-9); PROTEIN,URINE NEGATIVE (NEGATIVE)
[2019-02-23 22:32] LABS: AMORPHOUS SEDIMENT,UR FEW AMOR URATES /LPF; BACTERIA,URINE NEGATIVE /HPF
[2019-02-23 22:42] LABS: AMPHETAMINE SCREEN, URINE NEGATIVE (NEGATIVE); BARBITURATE SCREEN URINE NEGATIVE (NEGATIVE); BENZODIAZEPINES SCREEN URINE NEGATIVE (NEGATIVE); CANNABINOID SCREEN, URINE NEGATIVE (NEGATIVE); COCAINE SCREEN URINE NEGATIVE (NEGATIVE); METHADONE STAT NEGATIVE (NEGATIVE); METHAMPHETAMINE SCREEN URINE S NEGATIVE (NEGATIVE); OPIATE SCREEN URINE NEGATIVE (NEGATIVE); OXYCODONE STAT NEGATIVE (NEGATIVE); PROPOXYPHENE STAT NEGATIVE (NEGATIVE); TRICYCLIC ANTIDEPRESSANTS SCRE NEGATIVE (NEGATIVE)
[2019-02-23] MEDS ORDERED: NS 100 ML (IVPB) BAG IV ONE (22:45)
[2019-02-23] MEDS ORDERED: IOHEXOL 350 MG/ML 100 ML (OMNIPAQUE 350) VIAL IV ONE (22:45)
[2019-02-23] MEDS ORDERED: HOLD METFORMIN - RECEIVED CONTRAST 20 ML VIAL IV SCH (22:45)
[2019-02-23] MEDS ORDERED: PANT40TA2 PO (23:39)
[2019-02-23] MEDS ORDERED: PANTOPRAZOLE 40 MG (PROTONIX) TAB PO ONE (23:45)
[2019-02-23 23:53] VITALS: BP 125/84
--- NOTE | 2019-02-24 06:52 | Diagnostic Imaging Report ---
PROCEDURE: CT abdomen and pelvis with contrast. TECHNIQUE: Multiple contiguous axial images were obtained through the abdomen and pelvis after administration of intravenous contrast. Auto Exposure Controls were utilized during the CT exam to meet ALARA standards for radiation dose reduction. INDICATION: Abdominal pain. FINDINGS: The lung bases are clear. There is fatty infiltration of the liver. Gallbladder is unremarkable. There is no biliary ductal dilatation. Spleen is normal. The pancreas and adrenal glands are unremarkable. Kidneys are normal in appearance. Aorta is nonaneurysmal. Bowel gas pattern is nonspecific. The appendix is normal. There is some diverticular disease. There is no free air. There is no ascites. No focal inflammatory changes. Bladder is normal. There is no pelvic mass, adenopathy or free fluid. IMPRESSION: Fatty infiltration of the liver. Diverticular disease without evidence of diverticulitis. Dictated by: Dictated on workstation # [id number]
== END 2019-02-23 23:54 | disposition home or self-care (01) ==
LOC: EDUNIT# 20:13 → ER 20:14
DX: K62.5 Hemorrhage of anus and rectum (principal); I10 Essential (primary) hypertension; E11.40 Type 2 diabetes mellitus with diabetic neuropathy, unspecified; I48.91 Unspecified atrial fibrillation; K21.9 Gastro-esophageal reflux disease without esophagitis; E66.9 Obesity, unspecified; F90.9 Attention-deficit hyperactivity disorder, unspecified type; F41.9 Anxiety disorder, unspecified; F17.210 Nicotine dependence, cigarettes, uncomplicated; Z95.0 Presence of cardiac pacemaker; Z88.5 Allergy status to narcotic agent; Z88.8 Allergy status to other drugs, medicaments and biological substances; Z82.49 Family history of ischemic heart disease and other diseases of the circulatory system; Z68.42 Body mass index [BMI] 45.0-49.9, adult; Z91.19 Patient's noncompliance with other medical treatment and regimen; Z79.82 Long term (current) use of aspirin; Z79.84 Long term (current) use of oral hypoglycemic drugs
CPT/HCPCS: 36415; 74022; 74177; 80053; 80306; 80320; 81000; 82274; 83735; 85007; 85027; 85610; 85730; 93041; 96360; 96361

== ENCOUNTER → 2019-07-16 | Outpatient (CLI) | payer MEDICARE, MEDICAID ==
[~2019-07-16] MED LIST changes: -GLIM2TAB PO; +GLIM2TAB4 PO; +METF-865; +METF-865 PO; -METF500T8; -METF500T8 PO; -METO-370 PO; +METO50TA7 PO; -OMEP20CA13; +OMEP20CA18; +PANT40TA2 PO
--- NOTE | 2019-07-16 14:26 | NUR ---
PATIENT RECEIVED DEFINITY SOLUTION DURING ECHOCARDIOGRAM. Pt tolerated the procedure well with no complaints .
== END ==
LOC: CARD 12:27
PROVIDERS: ATTEND Internal Medicine Cardiovascular Disease
DX: I35.1 Nonrheumatic aortic (valve) insufficiency (principal); I11.9 Hypertensive heart disease without heart failure; Q21.1 Atrial septal defect; I44.2 Atrioventricular block, complete; Z95.810 Presence of automatic (implantable) cardiac defibrillator
CPT/HCPCS: 93306

== ENCOUNTER → 2019-12-12 | Outpatient (CLI) | payer MEDICARE, MEDICAID ==
[~2019-12-12] MED LIST changes: +ASPI-1238 PO; -ASPI-983 PO
--- NOTE | 2019-12-12 17:31 | Diagnostic Imaging Report ---
INDICATION: Perianal mass and redness. TECHNIQUE: Scrotal sonography performed in the routine fashion, including color Doppler. FINDINGS: The right testicle measured 4.5 x 2.1 x 3.0 cm. Left testicle measured 4.6 x 2.5 x 3.3 cm. Both testicles appear sonographically normal with normal color flow. There is no hydrocele or varicocele. In the soft tissues in the perianal region, there is a hypoechoic area with internal echoes measuring 2.9 x 1.4 x 1.9 cm. This may represent a small abscess. IMPRESSION: Normal-appearing testicles bilaterally. There is a perianal complex fluid density area as described above measuring 2.9 x 1.9 x 1.4 cm. This may represent abscess. Dictated by: Dictated on workstation # [id number]
== END ==
LOC: RAD 12:19
PROVIDERS: ATTEND Surgery
DX: N50.89 Other specified disorders of the male genital organs (principal)
CPT/HCPCS: 76870

== ENCOUNTER 2019-12-19 05:37 | Outpatient (RCR) | payer MEDICARE, MEDICAID ==
[~2019-12-19] VITALS: Ht 190.5 cm; Wt 172.3 kg
[~2019-12-19 05:37] MED LIST changes: -INSU100I29; +INSU100I29 SQ
[2019-12-19] MEDS ORDERED: CARV3.122 PO (12:18)
[2019-12-19] MEDS ORDERED: INSU100I32 SQ (12:18)
[2019-12-19] MEDS ORDERED: FENO160T12 PO (12:18)
== END 2019-12-19 12:33 | disposition home or self-care (01) ==
LOC: PREOP 05:37
PROVIDERS: ATTEND Surgery
DX: Z01.812 Encounter for preprocedural laboratory examination (principal); K61.0 Anal abscess; Z20.828 Contact with and (suspected) exposure to other viral communicable diseases
CPT/HCPCS: 87635

== ENCOUNTER 2019-12-23 05:57 | Day surgery (SDC) | payer MEDICARE, MEDICAID ==
[2019-12-23] VITALS (8 sets, daily range): BP systolic 105–172; BP diastolic 67–106
[~2019-12-23] VITALS: Ht 190.5 cm; Wt 172.3 kg
[~2019-12-23 05:57] MED LIST changes: +FENO160T12 PO; +INSU100I32 SQ
[2019-12-23] MEDS ORDERED: LACTATED RINGERS 1,000 ML IV PRN (06:51)
[2019-12-23] MEDS ORDERED: SEVOFLURANE (ULTANE) 15 ML INHAL SOLN ONE (06:59)
[2019-12-23] MEDS ORDERED: proPOfol 200 MG/20 ML (DIPRIVAN) VIAL IV ONE (06:59)
[2019-12-23] MEDS ORDERED: ONDANSETRON 4 MG/2 ML (SDV) Z0FRAN ONE (06:59)
[2019-12-23] MEDS ORDERED: fentaNYL INJECTION 100 MCG/2 ML AMP ONE ×2 (06:59→08:00)
[2019-12-23] MEDS ORDERED: LIDOCAINE PF 2% 5 ML (XYLOCAINE) VIAL ONE (06:59)
[2019-12-23] MEDS ORDERED: ceFAZolin 2 GM IV Premixed 50 ML IV ONE (07:00)
[2019-12-23] MEDS ORDERED: MIDAZOLAM 2 MG/2 ML (VERSED) VIAL IV ONE (07:00)
[2019-12-23] MEDS ORDERED: MIDAZOLAM 2 MG/2 ML (VERSED) VIAL ONE (07:00)
[2019-12-23] MEDS ORDERED: LIDOCAINE/EPI 1%-1:100,000 (XYLOCAINE) 20ML ONE (07:18)
--- NOTE | 2019-12-23 07:43 | Progress Note-Pre Operative ---
Pre-Operative Progress Note H&P Reviewed The H&P was reviewed, patient examined and no changes noted. Date Seen by Provider: Dec 23, 2019 Time Seen by Provider: 07:43 Date H&P Reviewed: Dec 23, 2019 Time H&P Reviewed: 07:43 Pre-Operative Diagnosis: perianal fluid collection PITA VELASQUEZ DO Dec 23, 2019 07:43
[2019-12-23] MEDS ORDERED: ONDANSETRON 4 MG/2 ML (SDV) Z0FRAN IVP PRN (08:30)
[2019-12-23] MEDS ORDERED: fentaNYL INJECTION 100 MCG/2 ML AMP IVP ONE (08:30)
--- NOTE | 2019-12-23 08:43 | Progress Note-Post Operative ---
Post-Operative Progess Note Surgeon (s)/Senior Biostatistician/Group Leader (s) Surgeon PITA VELASQUEZ DO Senior Biostatistician/Group Leader: na Pre-Operative Diagnosis perianal fluid collection Post-Operative Diagnosis perianal fluid collection Procedure & Operative Findings Date of Procedure 12/23/19 Procedure Performed/Findings incision and drainage of perianal fluid collection Anesthesia Type general Estimated Blood Loss Estimated blood loss (mL): minimal Specimens/Packing Specimens Removed culture of purulent fluid Packin/4 in iodoform PITA VELASQUEZ DO Dec 23, 2019 08:43
[2019-12-23] MEDS ORDERED: SULF1TAB35 PO (08:44)
--- NOTE | 2019-12-23 08:46 | Discharge Inst-Simple/Standard ---
Discharge Inst-Standard Discharge Medications New, Converted or Re-Newed RX: Transmitted to Pharmacy Patient Instructions/Follow Up Plan of Care/Instructions/FU: See Dr. Redman nurse tomorrow for packing change. Юлия 1-2 weeks. Activity as Tolerated: No Discharge Diet: Regular Diet Other Inst to Patient Follow up Appt: Make appointment for 2 week. Instructions: No lifting greater than 10 pounds. No strenuous activity. May shower in 24 hours, no tub bath or soaking. Use incentive spirometer at home as directed. No Smoking Skin/Wound Care: Irrigate and pack wound daily till can't pack any further. If you need assistance please arrange with the office. Bring someone with you to learn if able. Symptoms to Report: Appetite Changes, Extremity Discoloration, Numbness/Tingling, Swelling Increased, Bleeding Excessive, Eyesight Changes, Pain Increased, Urine Color Change, Constipation(Persistent), Fever over 101 degree F, Pain/Pressure in chest, Urinating Difficulty, Cough Up/Vomit Blood, Heart Beat Irreg/Pounding, Pain/Pressure in jaw, Vaginal Bleeding Increase, Cramps in feet or legs, Lightheadedness, Pain/Pressure in shoulder, Diarrhea(Persistent), Memory Changes Suddenly, Questions/Concerns, Weight gain consecutive days, Dizziness/Fainting, Nausea/Vomiting, Shortness of Breath, Weight gain over 2 pounds If questions or concerns contact your physician Or seek help at emergency department. PITA REDMAN DO Dec 23, 2019 08:46
--- NOTE | 2019-12-23 11:33 | Anesthesia-General Post-Op ---
General Patient Condition Mental Status/LOC: Same as Preop Cardiovascular: Satisfactory Nausea/Vomiting: Absent Respiratory: Satisfactory Pain: Controlled Complications: Absent Post Op Complications Complications None Follow Up Care/Instructions Patient Instructions None needed. Anesthesia/Patient Condition Patient Condition Patient is doing well, no complaints, stable vital signs, no apparent adverse anesthesia problems. No complications reported per nursing. D/C home per [facility] [place]: Yes DIEGO KELSEY CRNA Dec 23, 2019 11:33
--- NOTE | 2019-12-23 22:44 | OPERATIVE REPORT ---
DATE OF SERVICE: PREOPERATIVE DIAGNOSIS: Perianal fluid collection. POSTOPERATIVE DIAGNOSIS: Perianal fluid collection. PROCEDURE: Incision and drainage of perianal fluid collection. SURGEON: Pita Redman DO ANESTHESIA: General. ESTIMATED BLOOD LOSS: Minimal. COMPLICATIONS: None. INDICATIONS: The patient is a 29-year-old male with a perianal fluid collection. He was explained risks and benefits of procedure and wished to proceed with procedure. Consent was signed in the chart. DESCRIPTION OF PROCEDURE: The patient was taken to the operating suite, prepped and draped in sterile fashion in lithotomy position. Timeout was performed. A 15-blade scalpel was used to make a skin incision over the fluctuant mass. Purulent material erupted, culture was obtained. The incision was 2 cm in length. The wound was then irrigated with copious amounts of irrigation and the wound was then packed with quarter inch iodoform. The area was then washed and dried and sterile bandage was applied. The patient tolerated procedure well without any complications. He was taken to recovery room in stable condition. RECOMMENDATION: The patient to continue with local wound care, irrigating and packing the wound daily with iodoform. He was started on Bactrim RECOMMENDATIONS: The patient will follow up tomorrow in the office for wound care. Any issues be seen at that time. Job ID: [id number] DocumentID: [id number] Dictated Date: 12/23/2019 13:12:51 Admin Dir Date: 12/23/2019 22:42:58 Dictated By: PITA REDMAN DO
== END 2019-12-23 09:50 | disposition home or self-care (01) ==
LOC: SDC 05:57
PROVIDERS: ATTEND Surgery
DX: K61.0 Anal abscess (principal); I11.0 Hypertensive heart disease with heart failure; I50.9 Heart failure, unspecified; F41.9 Anxiety disorder, unspecified; E11.40 Type 2 diabetes mellitus with diabetic neuropathy, unspecified; K21.9 Gastro-esophageal reflux disease without esophagitis; F90.9 Attention-deficit hyperactivity disorder, unspecified type; I44.2 Atrioventricular block, complete; G89.4 Chronic pain syndrome; M19.90 Unspecified osteoarthritis, unspecified site; I48.0 Paroxysmal atrial fibrillation; E66.01 Morbid (severe) obesity due to excess calories; Z68.42 Body mass index [BMI] 45.0-49.9, adult; Z79.899 Other long term (current) drug therapy; Z79.82 Long term (current) use of aspirin; Z79.84 Long term (current) use of oral hypoglycemic drugs; Z88.5 Allergy status to narcotic agent; Z88.8 Allergy status to other drugs, medicaments and biological substances; Z87.891 Personal history of nicotine dependence
CPT/HCPCS: 82962; 87070; 87075; 87076; 87077; 87081; 87185; 87205

== ENCOUNTER → 2020-03-23 | Outpatient (CLI) | payer MEDICARE, MEDICAID ==
--- NOTE | 2020-03-23 17:44 | Diagnostic Imaging Report ---
INDICATION: FELL 2 DAYS AGO ON STEPS ON BOTTOM TECHNIQUE: AP, Lateral and Spot imaging of the lumbar spine CORRELATION STUDY: None FINDINGS: The lumbar spinal alignment is straightened but otherwise anatomic. Vertebral body heights and disc spaces are maintained. No fracture or malalignment is seen. IMPRESSION: No radiographic evidence for acute bony abnormality of the lumbar spine. Dictated by: Dictated on workstation # [id number]
--- NOTE | 2020-03-23 18:31 | Diagnostic Imaging Report ---
INDICATION: FELL 2 DAYS AGO ON STEPS ON BOTTOM. TECHNIQUE: AP and lateral views of sacrum and coccyx 5:37 PM. CORRELATION STUDY: None FINDINGS: There is no acute displaced sacrococcygeal fracture. SI joints are maintained. Findings compatible with prior hernia repair in the left inguinal region. Additional clips in the right inguinal region. IMPRESSION: 1. Negative for acute displaced sacrococcygeal fracture. Dictated by: Dictated on workstation # [id number]
== END ==
LOC: RAD 17:17
PROVIDERS: ATTEND Family Medicine
DX: Z04.3 Encounter for examination and observation following other accident (principal); W10.8XXA Fall (on) (from) other stairs and steps, initial encounter
CPT/HCPCS: 72100; 72220

== ENCOUNTER 2020-04-13 16:05 | Emergency (ER) | payer MEDICARE, MEDICAID ==
[~2020-04-13] VITALS: Ht 190.5 cm; Wt 158.7 kg
[~2020-04-13 16:05] MED LIST changes: -LISI10TA2 PO; +LISI10TA25 PO; +SERT-412 PO; -SERT25TA5 PO
--- NOTE | 2020-04-13 16:53 | ED Abdominal Pain ---
General Chief Complaint: Abdominal/GI Problems Stated Complaint: N/V, CP, POSSIBLE ETOH W/D Nursing Triage Note: PT AMB TO TRIAGE WITH COMPLAINT OF ABD PAIN AND NAUSEA FOR 3 DAYS. STATES DRINKS AT LEAST THREE TALL BOYS AND A PINT OF VODKA A DAY. Sepsis Screen: No Definite Risk Source of Information: Patient Exam Limitations: No Limitations History of Present Illness Date Seen by Provider: Apr 13, 2020 Time Seen by Provider: 16:17 Initial Comments This is a well-appearing 29-year-old male presents to the ER with complaints of nausea and vomiting x3 days. States he drinks three large alcoholic beers with a pint of vodka daily with last intake last night. Additionally he reports mid abdominal pain and generalized not feeling well. Denies fevers, chills, cough, shortness of breath, chest pain. Allergies and Home Medications Allergies Coded Allergies: morphine (Verified Allergy, Severe, RESP ARREST, 03/14/18) meropenem (Verified Allergy, Intermediate, rash, 04/01/18) topiramate (Verified Allergy, Intermediate, MADE HAIR FALL OUT, 03/14/18) tramadol (Unverified Allergy, Mild, 03/14/18) Home Medications Aspirin 325 Mg Tablet, 325 MG PO DAILY, (Reported) Carvedilol 3.125 Mg Tablet, 3.125 MG PO DAILY, (Reported) Fenofibrate 160 Mg Tablet, 160 MG PO DAILY, (Reported) Furosemide 40 Mg Tablet, 40 MG PO DAILY, (Reported) Insulin Degludec 100 Unit/1 Ml Insuln.pen, 35 UNITS SQ HS, (Reported) Insulin Detemir 100 Unit/1 Ml Insuln.pen, 21 UNITS SQ TIDAC, (Reported) Metformin HCl 500 Mg Tab.er.24, 1,000 MG PO BID, (Reported) Promethazine HCl 25 Mg Tablet, 25 MG PO Q6H PRN for NAUSEA/VOMITING Prescribed by: ROSIE CALDWELL on 04/13/20 185 Sacubitril/Valsartan 1 Each Tablet, 1 TAB PO BID, (Reported) Sulfamethoxazole/Trimethoprim 1 Each Tablet, 1 EACH PO BID Prescribed by: PITA VELASQUEZ on 12/23/19 0844 Testosterone 5 Gm Gel.packet, 5 GM TD DAILY, (Reported) Patient Home Medication List Home Medication List Reviewed: Yes Review of Systems Review of Systems Constitutional: no symptoms reported EENTM: No Symptoms Reported Respiratory: No Symptoms Reported Cardiovascular: No Symptoms Reported Gastrointestinal: See HPI Genitourinary: No Symptoms Reported Musculoskeletal: no symptoms reported Skin: no symptoms reported Psychiatric/Neurological: No Symptoms Reported Endocrine: No Symptoms Reported Hematologic/Lymphatic: No Symptoms Reported Past Kjiasfq-Xrumnw-Njemup Hx Patient Social History Alcohol Use: Regular Use Number of Drinks Today: FF Alcohol Beverage of Choice: Beer, Vodka Drug of Choice: THC, METH, MUSHROOMS Smoking Status: Former Smoker Type Used: Cigarettes Former Smoker, Quit: June 26, 2016 Recent Infectious Disease Expo: No Recent Hopitalizations: No Immunizations Up To Date Tetanus Booster (TDap): Unknown PED Vaccines UTD: No Date of Pneumonia Vaccine: Dec 08, 2015 Date of Influenza Vaccine: Nov 22, 2019 Seasonal Allergies Seasonal Allergies: Yes (chronic congestion ) Past Medical History Surgeries: Yes (BOVINE AORTIC/MITRAL VALVE REPLACEMENT X 2;INGUINAL HERNIA R EPAIR;) Abdominal, Cardiac, Pacemaker, Testicular, Valve Replacement Respiratory: No Currently Using CPAP: No Currently Using BIPAP: No Cardiac: Yes (BI-VENT PACEMAKER; AORTIC AND MITRAL VALVE REPLACEMENTS X 2; CHF;) Atrial Fibrillation, Cardiomyopathy, Congenital Heart Disease, Endocarditis, Hy pertension, Valvular Heart Disease Neurological: Yes Neuropathy Reproductive Disorders: Yes Sexually Transmitted Disease: No HIV/AIDS: No Genitourinary: Yes (RENAL INFARCT; TESTICULAR SURGERY; ERECTILE DYSFUNCTION) Gastrointestinal: Yes (INGUINAL HERNIA REPAIR; SPLENIC INFARCT) Abdominal Hernia, Gastroesophageal Reflux Musculoskeletal: Yes Chronic Back Pain Endocrine: Yes (EXTREME NON-COMPLIANCE IN ALL ASPECTS OF CARE; OBESITY) Diabetes, Insulin dep HEENT: No Loss of Vision: Denies Hearing Impairment: Denies Cancer: No Psychosocial: Yes (POLYSUBSTANCE ABUSE) ADD/ADHD, Anxiety Integumentary: Yes Psoriasis Blood Disorders: Yes Adverse Reaction/Blood Tranf: No Family Medical History Diabetes mellitus 19 MOTHER Hepatitis C No Pertinent Family Hx ENDOCARDITIS WITH MULTIPLE EMBOLI--SPLENIC AND RENAL INFARCTS; AORTIC AND MITRAL VALVE REPLACEMENTS WITH REPEAT VALVE REPLACEMENTS; PFO AND OUTFLOW TRACT REPAIRS 10/2015 PACEMAKER FOR COMPLETE HEART BLOCK--WAS IN ABDOMEN WHICH WAS REMOVED AND REPLACED TO RIGHT CHEST; CARDIOVERSION FOR ATRIAL FIBRILLATION; INGUINAL HERNIA REPAIR; TESTICULAR SURGERY; PICC LINE RIGHT ARM 10/2015--LATER REMOVED Physical Exam Vital Signs Vital Signs - First Documented 04/13/20 16:27 Temp 37.0 Pulse 84 Resp 20 B/P (MAP) 146/92 (110) Pulse Ox 98 O2 Delivery Room Air Capillary Refill : Less Than 3 Seconds Height/Weight/BMI Height: 6'2.00" Weight: 350lbs. 0.0oz. 158.697861sw; 43.00 BMI Method:Stated General Appearance: WD/WN, no apparent distress HEENT: PERRL/EOMI, normal ENT inspection Respiratory: lungs clear, normal breath sounds, no respiratory distress Cardiovascular: normal peripheral pulses, regular rate, rhythm Gastrointestinal: normal bowel sounds, soft, tenderness (diffuse with palpation ) Extremities: normal range of motion, non-tender, normal inspection Back: normal inspection, no vertebral tenderness Neurologic/Psychiatric: no motor/sensory deficits, alert, normal mood/affect, oriented x 3 Skin: normal color, warm/dry Progress/Results/Core Measures Results/Orders Lab Results Laboratory Tests Test 04/13/20 16:54 04/13/20 19:30 Range/Units White Blood Count 11.8 H 4.3-11.0 10^3/uL Red Blood Count 4.91 4.30-5.52 10^6/uL Hemoglobin 15.1 13.3-17.7 g/dL Hematocrit 46 40-54 % Mean Corpuscular Volume 94 80-99 fL Mean Corpuscular Hemoglobin 31 25-34 pg Mean Corpuscular Hemoglobin Concent 33 32-36 g/dL Red Cell Distribution Width 12.4 10.0-14.5 % Platelet Count 289 130-400 10^3/uL Mean Platelet Volume 10.5 9.0-12.2 fL Immature Granulocyte % (Auto) 1 % Neutrophils (%) (Auto) 74 42-75 % Lymphocytes (%) (Auto) 19 12-44 % Monocytes (%) (Auto) 5 0-12 % Eosinophils (%) (Auto) 0 0-10 % Basophils (%) (Auto) 1 0-10 % Neutrophils # (Auto) 8.8 H 1.8-7.8 10^3/uL Lymphocytes # (Auto) 2.3 1.0-4.0 10^3/uL Monocytes # (Auto) 0.5 0.0-1.0 10^3/uL Eosinophils # (Auto) 0.0 0.0-0.3 10^3/uL Basophils # (Auto) 0.1 0.0-0.1 10^3/uL Immature Granulocyte # (Auto) 0.2 H 0.0-0.1 10^3/uL Sodium Level 138 135-145 MMOL/L Potassium Level 4.1 3.6-5.0 MMOL/L Chloride Level 102 98-107 MMOL/L Carbon Dioxide Level 24 21-32 MMOL/L Anion Gap 12 5-14 MMOL/L Blood Urea Nitrogen 17 7-18 MG/DL Creatinine 1.27 0.60-1.30 MG/DL Estimat Glomerular Filtration Rate > 60 BUN/Creatinine Ratio 13 Glucose Level 228 H 70-105 MG/DL Calcium Level 8.9 8.5-10.1 MG/DL Corrected Calcium 8.8 8.5-10.1 MG/DL Total Bilirubin 0.4 0.1-1.0 MG/DL Aspartate Amino Transf (AST/SGOT) 41 H 5-34 U/L Alanine Aminotransferase (ALT/SGPT) 45 0-55 U/L Alkaline Phosphatase 50 40-136 U/L Troponin I < 0.028 <0.028 NG/ML Total Protein 7.5 6.4-8.2 GM/DL Albumin 4.1 3.2-4.5 GM/DL Lipase 30 8-78 U/L Serum Alcohol 94 H <10 MG/DL Urine Color YELLOW Urine Clarity CLEAR Urine pH 7.5 5-9 Urine Specific Burns 1.015 L 1.016-1.022 Urine Protein 1+ H NEGATIVE Urine Glucose (UA) TRACE H NEGATIVE Urine Ketones NEGATIVE NEGATIVE Urine Nitrite NEGATIVE NEGATIVE Urine Bilirubin NEGATIVE NEGATIVE Urine Urobilinogen 1.0 < = 1.0 MG/DL Urine Leukocyte Esterase NEGATIVE NEGATIVE Urine RBC (Auto) NEGATIVE NEGATIVE Urine RBC RARE /HPF Urine WBC 2-5 /HPF Urine Squamous Epithelial Cells 0-2 /HPF Urine Crystals NONE /LPF Urine Bacteria TRACE /HPF Urine Casts NONE /LPF Urine Mucus SMALL H /LPF Urine Culture Indicated NO Urine Opiates Screen NEGATIVE NEGATIVE Urine Oxycodone Screen NEGATIVE NEGATIVE Urine Methadone Screen NEGATIVE NEGATIVE Urine Propoxyphene Screen NEGATIVE NEGATIVE Urine Barbiturates Screen NEGATIVE NEGATIVE Ur Tricyclic Antidepressants Screen NEGATIVE NEGATIVE Urine Phencyclidine Screen NEGATIVE NEGATIVE Urine Amphetamines Screen NEGATIVE NEGATIVE Urine Methamphetamines Screen NEGATIVE NEGATIVE Urine Benzodiazepines Screen NEGATIVE NEGATIVE Urine Cocaine Screen NEGATIVE NEGATIVE Urine Cannabinoids Screen NEGATIVE NEGATIVE My Orders Orders - ROSIE CALDWELL APRN Ua Culture If Indicated (04/13/20 16:17) Drug Screen Stat (Urine) (04/13/20 16:17) Alcohol (04/13/20 16:17) Lactated Ringers (Lr 1000 Ml Iv Solution (04/13/20 17:00) Ondansetron Injection (Zofran Injectio (04/13/20 17:00) Cbc With Automated Diff (04/13/20 18:02) Comprehensive Metabolic Panel (04/13/20 18:02) Lipase (04/13/20 18:02) Troponin I (04/13/20 18:02) Promethazine Injection (Phenergan Injec (04/13/20 18:45) Medications Given in ED Vital Signs/I&O 04/13/20 04/13/20 16:27 20:02 Temp 37.0 37.0 Pulse 84 78 Resp 20 19 B/P (MAP) 146/92 (110) 134/82 (110) Pulse Ox 98 98 O2 Delivery Room Air Room Air 04/14/20 00:00 Intake Total 1000 ml Balance 1000 ml Blood Pressure Mean: 110 Progress Progress Note : Progress Note This is a healthy-appearing 29-year-old male who presents to the ER with complaints of nausea vomiting and abdominal pain x3 days. He is an alcoholic and drinks daily. Discussed that his symptoms could be due to his alcohol intake however will initiate basic work-up with [facility] at this time. Labs reviewed and are unremarkable. Noted to have ETOH of 94. Was given fluids and Zofran and Phenergan through ED course and reports Phenergan improved symptoms. Reviewed discharge plan of care and he is agreeable with plan. No questions at this time. Departure Impression Primary Impression: Nausea & vomiting Additional Impression: Alcohol intoxication Disposition: 01 HOME, SELF-CARE Condition: Improved Departure-Patient Inst. Decision time for Depature: 18:55 Referrals: GAURANG TERRELL DO (PCP/Family) Primary Care Physician Patient Instructions: Alcohol Intoxication ED, Nausea and Vomiting, Adult ED Add. Discharge Instructions: Plan: 1. Discharge home. Drink clear liquids and advance diet as tolerated. 2. May take Phenergan 25mg by mouth as needed for nausea/vomiting. 3. Follow up with your primary care provider if your symptoms persist. 4. Return for any new or concerning symptoms. All discharge instructions reviewed with patient and/or family. Voiced understanding. Scripts Promethazine HCl (Promethazine Tablet) 25 Mg Tablet 25 MG PO Q6H PRN for NAUSEA/VOMITING, #20 TAB 0 Refills Prov: ROSIE CALDWELL APRN 04/13/20 ROSIE CALDWELL APRN Apr 13, 2020 16:53
[2020-04-13] MEDS ORDERED: LACTATED RINGERS 1,000 ML IV ONE (17:00)
[2020-04-13] MEDS ORDERED: ONDANSETRON 4 MG/2 ML (SDV) Z0FRAN IVP ONE (17:00)
[2020-04-13 18:12] LABS: ALBUMIN 4.1 GM/DL (3.2-4.5); CHLORIDE 102 MMOL/L (98-107); POTASSIUM 4.1 MMOL/L (3.6-5.0); SODIUM 138 MMOL/L (135-145)
[2020-04-13 18:13] LABS: CALCIUM 8.9 MG/DL (8.5-10.1)
[2020-04-13 18:14] LABS: GLUCOSE 228 MG/DL (70-105)
[2020-04-13 18:15] LABS: BASOPHILS # (AUTO) 0.1 10^3/uL (0.0-0.1); BASOPHILS % (AUTO) 1 % (0-10); EOSINOPHILS % (AUTO) 0 % (0-10); HEMATOCRIT 46 % (40-54); HEMOGLOBIN 15.1 g/dL (13.3-17.7); LYMPHOCYTES # (AUTO) 2.3 10^3/uL (1.0-4.0); LYMPHOCYTES % (AUTO) 19 % (12-44); MEAN CORPUSCULAR HEMOGLOBIN 31 pg (25-34); MEAN CORPUSCULAR HGB CONC 33 g/dL (32-36); MEAN CORPUSCULAR VOLUME 94 fL (80-99); MEAN PLATELET VOLUME 10.5 fL (9.0-12.2); MONOCYTES # (AUTO) 0.5 10^3/uL (0.0-1.0); MONOCYTES % (AUTO) 5 % (0-12); NEUTROPHILS # (AUTO) 8.8 10^3/uL (1.8-7.8); NEUTROPHILS % (AUTO) 74 % (42-75); PLATELET COUNT 289 10^3/uL (130-400); TOTAL PROTEIN 7.5 GM/DL (6.4-8.2); WHITE BLOOD COUNT 11.8 10^3/uL (4.3-11.0)
[2020-04-13 18:16] LABS: BILIRUBIN,TOTAL 0.4 MG/DL (0.1-1.0); CARBON DIOXIDE 24 MMOL/L (21-32)
[2020-04-13 18:18] LABS: ALKALINE PHOSPHATASE 50 U/L (40-136); CREATININE SERUM 1.27 MG/DL (0.60-1.30); GFR ESTIMATED > 60
[2020-04-13 18:19] LABS: BUN/CREATININE RATIO 13
[2020-04-13 18:21] LABS: ALANINE AMINOTRANSFERASE 45 U/L (0-55); LIPASE 30 U/L (8-78)
[2020-04-13] MEDS ORDERED: PROMETHAZINE INJ 25 MG/ML (PHENERGAN) AMP IVP ONE (18:45)
[2020-04-13] MEDS ORDERED: PROM25TA14 PO (18:57)
[2020-04-13 19:43] LABS: BILIRUBIN,URINE NEGATIVE (NEGATIVE); CLARITY,URINE CLEAR; COLOR,URINE YELLOW; GLUCOSE, URINE (UA) TRACE (NEGATIVE); KETONES,URINE NEGATIVE (NEGATIVE); LEUKOCYTE ESTERASE ,URINE NEGATIVE (NEGATIVE); NITRITE,URINE NEGATIVE (NEGATIVE); PH,URINE 7.5 (5-9); PROTEIN,URINE 1+ (NEGATIVE)
[2020-04-13 19:53] LABS: BACTERIA,URINE TRACE /HPF; RBC,URINE RARE /HPF; SQUAMOUS EPITHELIAL CELL,UR 0-2 /HPF
[2020-04-13 19:54] LABS: AMPHETAMINE SCREEN, URINE NEGATIVE (NEGATIVE); BARBITURATE SCREEN URINE NEGATIVE (NEGATIVE); BENZODIAZEPINES SCREEN URINE NEGATIVE (NEGATIVE); CANNABINOID SCREEN, URINE NEGATIVE (NEGATIVE); COCAINE SCREEN URINE NEGATIVE (NEGATIVE); METHADONE STAT NEGATIVE (NEGATIVE); METHAMPHETAMINE SCREEN URINE S NEGATIVE (NEGATIVE); OPIATE SCREEN URINE NEGATIVE (NEGATIVE); OXYCODONE STAT NEGATIVE (NEGATIVE); PROPOXYPHENE STAT NEGATIVE (NEGATIVE); TRICYCLIC ANTIDEPRESSANTS SCRE NEGATIVE (NEGATIVE)
[2020-04-13 20:02] VITALS: BP 134/82
== END 2020-04-13 20:02 | disposition home or self-care (01) ==
LOC: EDUNIT# 16:05 → ER 16:07
DX: F10.129 Alcohol abuse with intoxication, unspecified (principal); E11.9 Type 2 diabetes mellitus without complications; I10 Essential (primary) hypertension; Z88.5 Allergy status to narcotic agent; Z88.8 Allergy status to other drugs, medicaments and biological substances; Z87.891 Personal history of nicotine dependence; Z95.0 Presence of cardiac pacemaker; Z83.3 Family history of diabetes mellitus; Z79.82 Long term (current) use of aspirin; Z79.4 Long term (current) use of insulin
CPT/HCPCS: 36415; 80053; 80306; 80320; 81000; 83690; 84484; 85025

== ENCOUNTER → 2020-12-09 | Outpatient (CLI) | payer MEDICARE, MEDICAID ==
[~2020-12-09] MED LIST changes: -POLY17PO31 PO; +POLY17PO54 PO; +PROM25TA14 PO; -SULF1TAB35 PO; +SULF1TAB38 PO
== END ==
LOC: CARD 08:50
PROVIDERS: ATTEND Physician Assistant
DX: I11.9 Hypertensive heart disease without heart failure (principal); I08.0 Rheumatic disorders of both mitral and aortic valves; Z95.2 Presence of prosthetic heart valve
CPT/HCPCS: 93306

== ENCOUNTER 2021-01-08 07:54 | Day surgery (SDC) | payer MEDICARE, MEDICAID ==
[~2021-01-08] VITALS: Ht 190 cm; Wt 165.0 kg
[2021-01-08] VITALS (12 sets, daily range): BP systolic 126–175; BP diastolic 80–117
[2021-01-08] MEDS ORDERED: ceFAZolin INJECTION 1,000 MG ONE (07:58)
[2021-01-08] MEDS ORDERED: HEParin (CATH LAB) 1,000 ML IV ONE (07:58)
[2021-01-08] MEDS ORDERED: NS IV 1000 ML 1,000 ML ONE ×2 (07:58→10:22)
[2021-01-08] MEDS ORDERED: LIDOCAINE 1% INJ 20 ML 20 ML VIAL ONE ×2 (07:58→10:52)
[2021-01-08] MEDS ORDERED: ceFAZolin INJECTION 1,000 MG VIAL IV ONE (08:00)
[2021-01-08] MEDS ORDERED: NS IV 1000 ML 1,000 ML IV SCH ×2 (08:00→11:30)
[2021-01-08 08:17] LABS: HEMATOCRIT 47 % (40-54); HEMOGLOBIN 16.2 g/dL (13.3-17.7); MEAN CORPUSCULAR HEMOGLOBIN 31 pg (25-34); MEAN CORPUSCULAR HGB CONC 34 g/dL (32-36); MEAN CORPUSCULAR VOLUME 90 fL (80-99); MEAN PLATELET VOLUME 10.2 fL (9.0-12.2); PLATELET COUNT 312 10^3/uL (130-400); WHITE BLOOD COUNT 13.9 10^3/uL (4.3-11.0)
[2021-01-08 08:33] LABS: INR 0.9 (0.8-1.4); PROTHROMBIN TIME PATIENT 12.9 SEC (12.2-14.7)
--- NOTE | 2021-01-08 08:38 | Diagnostic Imaging Report ---
Clinical indications: Pre-ICD generator change. Exam: Portable chest x-ray upright view. Comparisons: Chest x-ray dated 04/01/2018. Findings: Lungs/pleura: Stable appearance of the lung calixto with no interval lung infiltrate. There is no pneumothorax. There is no pleural effusion. Mediastinum: Unremarkable. Pulmonary vasculature: Unremarkable. Heart: Heart size is within normal limits for portable projection. Stable appearance of the cardiac pacemaker/AICD overlying the right chest with similar position of the leads overlying the heart. Valvuloplasty changes are seen. Sternotomy wires are noted. Bones/extrathoracic soft tissue: Unremarkable. Impression: Stable chest x-ray exam with no radiographic evidence of acute cardiopulmonary process. Dictated by: Dictated on workstation # [id number]
[2021-01-08 08:43] LABS: ALBUMIN 4.2 GM/DL (3.2-4.5); BILIRUBIN,TOTAL 0.8 MG/DL (0.1-1.0); CALCIUM 10.9 MG/DL (8.5-10.1); CREATININE SERUM 1.2 MG/DL (0.60-1.30); POTASSIUM 3.9 MMOL/L (3.6-5.0)
[2021-01-08] MEDS ORDERED: ROSU5TAB13 PO (08:52)
[2021-01-08] MEDS ORDERED: TEST5GEL18 TD (08:52)
[2021-01-08] MEDS ORDERED: CALC500T7 PO (08:52)
[2021-01-08] MEDS ORDERED: INSU100I14 SQ (08:52)
[2021-01-08] MEDS ORDERED: DIPH25CA79 PO (08:52)
[2021-01-08] MEDS ORDERED: POTA99TA25 PO (08:52)
--- NOTE | 2021-01-08 09:54 | Conscious Sedation/ASA ---
Conscious Sedation Pre-Proced Time 03:00 ASA Score 3 For ASA 3 and 4: Consider anesthesia and medical clearance. Also, for patients with a history of failed moderate sedation consider anesthesia. Airway Lungs Heart ASA score ASA 1: a normal healthy patient ASA 2: a patient with a mild systemic disease (mid diabetes, controlled hypertension, obesity x ASA 3: a patient with a severe systemic disease that limits activity (angina, COPD, prior Myocardial infarction) ASA 4: a patient with an incapacitating disease that is a constant threat to life (CHF, renal failure) ASA 5: a moribund patient not expected to survive 24 hrs. (ruptured aneurysm) ASA 6: a declared brain- patient whose organs are being harvested. For emergent operations, add the letter E after the classification Mallampati Classification Grade 3 Sedation Plan Analgesia, Amnesia, Plan communicated to team members, Discussed options with patient/fam, Discussed risks with patient/fam The patient is an appropriate candidate to undergo the planned procedure, sedation, and anesthesia. The patient immediately re-assessed prior to indication. SCARLET FARRELL MD Jan 08, 2021 09:54
[2021-01-08] MEDS ORDERED: PROPOFOL DRIP (ICU) 100 ML IV ONE (10:05)
[2021-01-08] MEDS ORDERED: KETAMINE SYRINGE 50 MG/5 ML SYRINGE ONE (10:06)
[2021-01-08] MEDS ORDERED: MIDAZOLAM 2 MG/2 ML (VERSED) VIAL ONE ×2 (10:06→10:43)
[2021-01-08] MEDS ORDERED: ONDANSETRON 4 MG/2 ML (SDV) Z0FRAN ONE (10:16)
[2021-01-08] MEDS ORDERED: PATIENT MAY USE OWN MEDS, ALL PO SCH (11:30)
[2021-01-08] MEDS ORDERED: CEFU500T63 PO (11:34)
--- NOTE | 2021-01-08 11:39 | Discharge Inst-Post CATH ---
Discharge Inst-CATH/EP Problems Reviewed?: Yes Post Cardiac Cath/EP D/C Inst Follow Up/Plan Appointment with Dr. Edge's office next week <b>CARDIAC CATH/EP PROCEDURE DISCHARGE INSTRUCTIONS</b> ACTIVITY * Go Home directly and rest. * Limit activity of the leg (or wrist if it was used) for 7 days including aerobics, swimming, jogging, bicycling, etc. * Restrict stair-climbing for 7 days if possible, if not, climb up with your non-cath leg, then bring together on the same step. * Avoid lifting, pushing, pulling or excessive movement of the affected extremity for 7 days. * Customary sexual activity may be resumed after 2 days-use caution not to use a position that strains or causes pain to the affected extremity. * No driving for 24 hours. * NO SMOKING. * Avoid straining for bowel movements for 7 days. * Gentle walking on level ground is allowed. * Returning to work will depend on the type of procedure and the results. Your doctor will discuss this with you. CALL YOUR DOCTOR FOR ANY OF THE FOLLOWING: *If bleeding from the puncture site occurs- Apply gentle pressure to site with clean cloth and call your doctor or EMS. * If a knot or lump forms under the skin, increases in size, or causes pain. * If bruising appears to be worsening or moving further down your leg instead of disappearing. * Temperature above 101 F. CARE OF YOUR GROIN INCISION; * Bruising or purple discoloration of the skin near the puncture site is common. * You may shower only, no bathtub bathing for 5 days. Be careful to avoid slipping as your leg may feel stiff. * If a closure device was used on your femoral artery, please see the attached guide regarding care of the device and your leg. * Leave dressing on FOR 24 hours. CARE OF YOUR WRIST INCISION; * Bruising or purple discoloration of the skin near the puncture site is common. * You may shower. * DO NOT submerge wrist. * Leave dressing on FOR 24 hours. SCARLET EDGE MD Jan 08, 2021 11:39
--- NOTE | 2021-01-08 11:44 | ICD Change ---
ICD Generator Change Physician (s)/Water Resource Project Manager (s) Physician SCARLET FARRELL MD Pre-Procedure Diagnosis Pre-Procedure Diagnosis: perianal fluid collection Post-Procedure Note Procedure Start Date: Jan 08, 2021 Name of Procedure: BiV pacemaker/ICD generator change Findings/Procedure Note 30 years old gentleman with cardiomyopathy, has history of BiV ICD implanted, reached [facility], patient is pacemaker dependent. He was scheduled for generator replacement. After explaining the procedure to the patient all pros and cons were explained, anesthesia were called due to the difficulty with achieving adequate sedation w ith him. Local anesthesia applied, skin incision was made then dissection and the device was removed, disconnected and connecting a new device to the lead and it was placed back in the pocket. Pocket was irrigated with saline, Tyrx patch was used to limit the chance of reinfection. Skin pocket was closed on multiple layers with no complication. 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
--- NOTE | 2021-01-08 12:10 | Anesthesia-General Post-Op ---
MAC Patient Condition Mental Status/LOC: Same as Preop Cardiovascular: Satisfactory Nausea/Vomiting: Absent Respiratory: Satisfactory Pain: Controlled Complications: Absent Post Op Complications Complications None Follow Up Care/Instructions Patient Instructions None needed. Anesthesiology Discharge Order Discharge Order Patient is doing well, no complaints, stable vital signs, no apparent adverse anesthesia problems. No complications reported per nursing. NAYA MCGUIRE CRNA Jan 08, 2021 12:10
[2021-01-08] MEDS ORDERED: fentaNYL INJ 100 MCG/2 ML AMP IVP ONE (12:15)
[2021-01-08] MEDS ORDERED: ONDANSETRON 4 MG/2 ML (SDV) Z0FRAN IVP PRN (12:15)
--- NOTE | 2021-01-08 13:20 | Tele-ICU Consult ---
History of Present Illness History of Present Illness Date Seen by Provider: Jan 08, 2021 Time Seen by Provider: 13:19 History of Present Illness 30 yo M with CPM, has AICD, here for replacement of generator, had procedure today Allergies and Home Medications Allergies Coded Allergies: morphine (Verified Allergy, Severe, RESP ARREST, 03/14/18) meropenem (Verified Allergy, Intermediate, rash, 04/01/18) topiramate (Verified Allergy, Intermediate, MADE HAIR FALL OUT, 03/14/18) tramadol (Unverified Allergy, Mild, 03/14/18) Home Medications Aspirin 325 Mg Tablet, 325 MG PO DAILY, (Reported) Calcium Carbonate 200 Mg Tab.chew, 400-800 MG PO UD PRN for HEARTBURN, (Repo rted) TAKES 2-4 (200MG) TABLETS Cefuroxime Axetil 500 Mg Tablet, 500 MG PO BID Prescribed by: SCARLET FARRELL on 01/08/21 1134 Diphenhydramine HCl 25 Mg Capsule, 25 MG PO HS PRN for SLEEP, (Reported) Fenofibrate 160 Mg Tablet, 160 MG PO DAILY, (Reported) Furosemide 40 Mg Tablet, 40 MG PO DAILY, (Reported) Insulin Aspart 300 Units/3 Ml Solution, 22 UNITS SQ AC, (Reported) Insulin Degludec 100 Unit/1 Ml Insuln.pen, 32 UNITS SQ HS, (Reported) Metformin HCl 500 Mg Tab.er.24, 1,000 MG PO DAILY, (Reported) TAKES 2 (500MG) TABLETS Potassium Gluconate 600 Mg Tablet, 600 MG PO DAILY, (Reported) Rosuvastatin Calcium 5 Mg Tablet, 5 MG PO DAILY, (Reported) Sacubitril/Valsartan 1 Each Tablet, 1 TAB PO DAILY, (Reported) Testosterone 5 Gm Gel.packet, 5 GM TD Q48H, (Reported) Past Medical/Social/Family Hx Immunizations Up To Date Tetanus Booster (TDap): Unknown Hepatitis A: No Hepatitis B: Yes TB Skin Test: Negative Date of Pneumonia Vaccine: Dec 08, 2015 Current Status Primary Language: Kiswahili Past Medical History MORBID OBESITY T2DM, UNCONTROLLED HEPATIC STEATOSIS SINUS TACHYCARDIA Family Medical History Family Hx: ENDOCARDITIS WITH MULTIPLE EMBOLI--SPLENIC AND RENAL INFARCTS; AORTIC AND MITRAL VALVE REPLACEMENTS WITH REPEAT VALVE REPLACEMENTS; PFO AND OUTFLOW TRACT REPAIRS 10/2015 PACEMAKER FOR COMPLETE HEART BLOCK--WAS IN ABDOMEN WHICH WAS REMOVED AND REPLACED TO RIGHT CHEST; CARDIOVERSION FOR ATRIAL FIBRILLATION; INGUINAL HERNIA REPAIR; TESTICULAR SURGERY; PICC LINE RIGHT ARM 10/2015--LATER REMOVED Sepsis Event Evaluation Height, Weight, BMI Height: 6'2.00" Weight: 350lbs. 0.0oz. 158.454031za; 45.70 BMI Method:Stated Exam Exam Patient acknowledged, consented, and participated in this virtual visit which was conducted using real time audio/video Vital Signs Date Time Temp Pulse Resp B/P (MAP) Pulse Ox O2 Delivery O2 Flow Rate FiO2 01/08/21 12:00 84 18 175/92 (119) 95 Room Air 01/08/21 11:58 84 01/08/21 11:55 84 18 164/85 (111) 94 Room Air 01/08/21 08:05 36.4 107 18 169/106 (127) 95 Room Air Height & Weight Height: 6'2.00" Weight: 350lbs. 0.0oz. 158.711060ni; 45.70 BMI Method:Stated Results Lab Laboratory Tests 01/08/21 08:12 Assessment/Plan Assessment/Plan change of generator for AICD Critical Care: Critically Ill Patient RODNEY MURCIA MD Jan 08, 2021 13:20
== END 2021-01-08 14:15 | disposition home or self-care (01) ==
LOC: CATH 07:54 → ICU 11:56 → CATH 14:15
PROVIDERS: ATTEND Internal Medicine Cardiovascular Disease
DX: Z45.010 Encounter for checking and testing of cardiac pacemaker pulse generator [battery] (principal); I42.9 Cardiomyopathy, unspecified; K62.89 Other specified diseases of anus and rectum; K21.9 Gastro-esophageal reflux disease without esophagitis; I11.0 Hypertensive heart disease with heart failure; I50.9 Heart failure, unspecified; E66.01 Morbid (severe) obesity due to excess calories; F17.210 Nicotine dependence, cigarettes, uncomplicated; I25.10 Atherosclerotic heart disease of native coronary artery without angina pectoris; F41.9 Anxiety disorder, unspecified; I48.0 Paroxysmal atrial fibrillation; E11.40 Type 2 diabetes mellitus with diabetic neuropathy, unspecified; G62.9 Polyneuropathy, unspecified; F32.A Depression, unspecified; Z68.42 Body mass index [BMI] 45.0-49.9, adult; Z79.899 Other long term (current) drug therapy; Z79.82 Long term (current) use of aspirin; Z79.2 Long term (current) use of antibiotics; Z79.4 Long term (current) use of insulin; Z95.2 Presence of prosthetic heart valve
CPT/HCPCS: 33264; 36415; 71045; 80053; 80061; 85027; 85610; 85730; 87040; 87081

== ENCOUNTER 2021-03-22 14:30 | Emergency (ER) | payer MEDICARE, MEDICAID ==
[~2021-03-22] VITALS: Ht 187.9 cm; Wt 158.7 kg
[~2021-03-22 14:30] MED LIST changes: +CALC500T7 PO; +CYCL10TA25 PO; +DIPH25CA79 PO; +POTA-179; -POTA20TA15; +POTA99TA25 PO; +ROSU5TAB13 PO; +TEST5GEL18 TD
[2021-03-22 15:10] LABS: BASOPHILS # (AUTO) 0.1 10^3/uL (0.0-0.1); BASOPHILS % (AUTO) 1 % (0-10); EOSINOPHILS % (AUTO) 0 % (0-10); HEMATOCRIT 47 % (40-54); HEMOGLOBIN 15.7 g/dL (13.3-17.7); LYMPHOCYTES % (AUTO) 25 % (12-44); MEAN CORPUSCULAR HEMOGLOBIN 31 pg (25-34); MEAN CORPUSCULAR HGB CONC 34 g/dL (32-36); MEAN CORPUSCULAR VOLUME 91 fL (80-99); MEAN PLATELET VOLUME 9.8 fL (9.0-12.2); MONOCYTES # (AUTO) 0.5 X 10^3 (0.0-1.0); MONOCYTES % (AUTO) 5 % (0-12); NEUTROPHILS # (AUTO) 8.1 X 10^3 (1.8-7.8); NEUTROPHILS % (AUTO) 69 % (42-75); PLATELET COUNT 309 10^3/uL (130-400); WHITE BLOOD COUNT 11.8 10^3/uL (4.3-11.0)
--- NOTE | 2021-03-22 15:13 | ED General ---
General Chief Complaint: Dizziness/Syncope Stated Complaint: LIGHTHEADED/DIZZINESS Nursing Triage Note: PT TO [facility] 6 WITH COMPLAINT OF LIGHTHEADED. STATES SYMPTOMS STARTED JUAN. STATES IT FEELS LIKE HE HAS "HELIUM IN HIS HEAD" AND "BRAIN IS NUMB". 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 Source of Information: Patient Exam Limitations: No Limitations History of Present Illness Date Seen by Provider: Mar 22, 2021 Time Seen by Provider: 15:11 Initial Comments To ER with lightheadedness and general fatigue that began Monday. History of nonischemic cardiomyopathy secondary to hx of endocarditis with aortic and mitral valve replacement with prosthetic valve and subsequent cardioverter/defibrillator placement for EF of 25-30%. Timing/Duration: 1-2 Days Severity: Moderate Associated Systoms: Weakness Allergies and Home Medications Allergies Coded Allergies: morphine (Verified Allergy, Severe, RESP ARREST, 03/14/18) meropenem (Verified Allergy, Intermediate, rash, 04/01/18) topiramate (Verified Allergy, Intermediate, MADE HAIR FALL OUT, 03/14/18) tramadol (Unverified Allergy, Mild, 03/14/18) Patient Home Medication List Home Medication List Reviewed: Yes Aspirin (Aspirin) 325 Mg Tablet, 325 MG PO DAILY, (Reported) Entered as Reported by: DIAZ MORRIS on 04/01/182122 Calcium Carbonate (Tums) 200 Mg Tab.chew, 400-800 MG PO UD PRN for HEARTBURN, (Reported) Entered as Reported by: DIEGO BETANCOURT on 01/08/21 0852 Cefuroxime Axetil (Cefuroxime) 500 Mg Tablet, 500 MG PO BID Prescribed by: SCARLET FARRELL on 01/08/21 1134 Diphenhydramine HCl (Benadryl) 25 Mg Capsule, 25 MG PO HS PRN for SLEEP, (Reported) Entered as Reported by: DIEGO BETANCOURT on 01/08/21 0852 Fenofibrate (Fenofibrate) 160 Mg Tablet, 160 MG PO DAILY, (Reported) Entered as Reported by: SMILEY STEWART on 12/19/19 1218 Furosemide (Furosemide) 40 Mg Tablet, 40 MG PO DAILY, (Reported) Entered as Reported by: RICKEY DIAMOND on 11/25/15 0143 Insulin Aspart (Novolog Flexpen) 300 Units/3 Ml Solution, 22 UNITS SQ AC, (Reported) Entered as Reported by: DIEGO BETANCOURT on 01/08/21 0852 Insulin Degludec (Tresiba Flextouch U-100) 100 Unit/1 Ml Insuln.pen, 32 UNITS SQ HS, (Reported) Entered as Reported by: SMILEY STEWART on 12/19/19 1218 Metformin HCl (Metformin HCl ER) 500 Mg Tab.er.24, 1,000 MG PO DAILY, (Reported) Entered as Reported by: GINGER ADAMS on 12/01/16 0944 Potassium Gluconate (Potassium) 600 Mg Tablet, 600 MG PO DAILY, (Reported) Entered as Reported by: DIEGO BETANCOURT on 01/08/21 0852 Rosuvastatin Calcium (Rosuvastatin Calcium) 5 Mg Tablet, 5 MG PO DAILY, (Reported) Entered as Reported by: DIEGO BETANCOURT on 01/08/21 0852 Sacubitril/Valsartan (Entresto 49 mg-51 mg Tablet) 1 Each Tablet, 1 TAB PO DAILY, (Reported) Entered as Reported by: DEAN ZUNIGA on 07/14/16 1052 Testosterone (Testosterone) 5 Gm Gel.packet, 5 GM TD Q48H, (Reported) Entered as Reported by: DIEGO BETANCOURT on 01/08/21 0852 Review of Systems Review of Systems Constitutional: see HPI; No chills, No dizziness, No fever; malaise EENTM: see HPI Respiratory: see HPI; No cough, No dyspnea on exertion, No short of breath Cardiovascular: no symptoms reported Genitourinary: no symptoms reported Musculoskeletal: no symptoms reported Skin: no symptoms reported Psychiatric/Neurological: No Symptoms Reported Hematologic/Lymphatic: No Symptoms Reported Immunological/Allergic: no symptoms reported Past Tcvzqfw-Hblzqh-Kcebpv Hx Patient Social History Tobacco Use?: No Use of E-Cig and/or Vaping dev: No Substance use?: No Alcohol Use?: Yes Alcohol Frequency: Daily Pt feels they are or have been: No Immunizations Up To Date Tetanus Booster (TDap): Unknown PED Vaccines UTD: No First/Initial COVID19 Vaccinat: SPRING 2020 Seasonal Allergies Seasonal Allergies: Yes (chronic congestion ) Past Medical History Surgeries: Yes (BOVINE AORTIC/MITRAL VALVE REPLACEMENT X 2;INGUINAL HERNIA REPAIR;) Abdominal, Cardiac, Pacemaker, Testicular, Valve Replacement Respiratory: No Currently Using CPAP: No Currently Using BIPAP: No Cardiac: Yes (BI-VENT PACEMAKER; AORTIC AND MITRAL VALVE REPLACEMENTS X 2; CHF;) Atrial Fibrillation, Cardiomyopathy, Congenital Heart Disease, Endocarditis, Hypertension, Valvular Heart Disease Neurological: Yes Neuropathy Reproductive Disorders: Yes Sexually Transmitted Disease: No HIV/AIDS: No Genitourinary: Yes (RENAL INFARCT; TESTICULAR SURGERY; ERECTILE DYSFUNCTION) Gastrointestinal: Yes (INGUINAL HERNIA REPAIR; SPLENIC INFARCT) Abdominal Hernia, Gastroesophageal Reflux Musculoskeletal: Yes Chronic Back Pain Endocrine: Yes (EXTREME NON-COMPLIANCE IN ALL ASPECTS OF CARE; OBESITY) Diabetes, Insulin dep HEENT: No Loss of Vision: Denies Hearing Impairment: Denies Cancer: No Psychosocial: Yes (POLYSUBSTANCE ABUSE) ADD/ADHD, Anxiety Integumentary: Yes Psoriasis Blood Disorders: Yes Adverse Reaction/Blood Tranf: No Family Medical History Diabetes mellitus 19 MOTHER Hepatitis C No Pertinent Family Hx ENDOCARDITIS WITH MULTIPLE EMBOLI--SPLENIC AND RENAL INFARCTS; AORTIC AND MITRAL VALVE REPLACEMENTS WITH REPEAT VALVE REPLACEMENTS; PFO AND OUTFLOW TRACT REPAIRS 10/2015 PACEMAKER FOR COMPLETE HEART BLOCK--WAS IN ABDOMEN WHICH WAS REMOVED AND REPLACED TO RIGHT CHEST; CARDIOVERSION FOR ATRIAL FIBRILLATION; INGUINAL HERNIA REPAIR; TESTICULAR SURGERY; PICC LINE RIGHT ARM 10/2015--LATER REMOVED Physical Exam Vital Signs Vital Signs - First Documented 03/22/21 14:40 Temp 36.8 Pulse 101 Resp 18 B/P (MAP) 141/94 (110) Pulse Ox 97 O2 Delivery Room Air Capillary Refill : Less Than 3 Seconds Height, Weight, BMI Height: 6'2.00" Weight: 350lbs. 0.0oz. 158.195568yw; 44.00 BMI Method:Stated General Appearance: No Apparent Distress, WD/WN Eyes: Bilateral Eye Normal Inspection, Bilateral Eye PERRL, Bilateral Eye EOMI Neck: Full Range of Motion, Normal Inspection Respiratory: No Accessory Muscle Use, No Respiratory Distress Cardiovascular: Regular Rate, Rhythm, Normal Peripheral Pulses Gastrointestinal: Normal Bowel Sounds, Non Tender, Soft Extremity: Normal Capillary Refill, Normal Inspection, No Pedal Edema Neurologic/Psychiatric: Alert, Oriented x3 Skin: Normal Color, Warm/Dry Progress/Results/Core Measures Suspected Sepsis SIRS Temperature: Pulse: 101 Respiratory Rate: 18 Laboratory Tests 03/22/21 14:54: White Blood Count 11.8H Blood Pressure 141 /94 Mean: 110 Laboratory Tests 03/22/21 14:54: Creatinine 1.23, INR Comment 0.9, Platelet Count 309, Total Bilirubin 0.5 Results/Orders Lab Results Laboratory Tests Test 03/22/21 14:54 03/22/21 15:13 Range/Units White Blood Count 11.8 H 4.3-11.0 10^3/uL Red Blood Count 5.10 4.30-5.52 10^6/uL Hemoglobin 15.7 13.3-17.7 g/dL Hematocrit 47 40-54 % Mean Corpuscular Volume 91 80-99 fL Mean Corpuscular Hemoglobin 31 25-34 pg Mean Corpuscular Hemoglobin Concent 34 32-36 g/dL Red Cell Distribution Width 12.9 10.0-14.5 % Platelet Count 309 130-400 10^3/uL Mean Platelet Volume 9.8 9.0-12.2 fL Immature Granulocyte % (Auto) 1 % Neutrophils (%) (Auto) 69 42-75 % Lymphocytes (%) (Auto) 25 12-44 % Monocytes (%) (Auto) 5 0-12 % Eosinophils (%) (Auto) 0 0-10 % Basophils (%) (Auto) 1 0-10 % Neutrophils # (Auto) 8.1 H 1.8-7.8 X 10^3 Lymphocytes # (Auto) 3.0 1.0-4.0 X 10^3 Monocytes # (Auto) 0.5 0.0-1.0 X 10^3 Eosinophils # (Auto) 0.0 0.0-0.3 10^3/uL Basophils # (Auto) 0.1 0.0-0.1 10^3/uL Immature Granulocyte # (Auto) 0.1 0.0-0.1 10^3/uL Prothrombin Time 12.9 12.2-14.7 SEC INR Comment 0.9 0.8-1.4 Sodium Level 137 135-145 MMOL/L Potassium Level 3.7 3.6-5.0 MMOL/L Chloride Level 98 98-107 MMOL/L Carbon Dioxide Level 19 L 21-32 MMOL/L Anion Gap 20 H 5-14 MMOL/L Blood Urea Nitrogen 21 H 7-18 MG/DL Creatinine 1.23 0.60-1.30 MG/DL Estimat Glomerular Filtration Rate 82 BUN/Creatinine Ratio 17 Glucose Level 249 H 70-105 MG/DL Calcium Level 9.1 8.5-10.1 MG/DL Corrected Calcium 9.2 8.5-10.1 MG/DL Total Bilirubin 0.5 0.1-1.0 MG/DL Aspartate Amino Transf (AST/SGOT) 78 H 5-34 U/L Alanine Aminotransferase (ALT/SGPT) 36 0-55 U/L Alkaline Phosphatase 60 40-136 U/L B-Type Natriuretic Peptide 20.8 <100.0 PG/ML Total Protein 7.3 6.4-8.2 GM/DL Albumin 3.9 3.2-4.5 GM/DL Thyroid Stimulating Hormone (TSH) 1.07 0.35-4.94 UIU/ML Free Thyroxine 0.85 0.70-1.48 NG/DL Serum Alcohol 221 H <10 MG/DL Urine Opiates Screen NEGATIVE NEGATIVE Urine Oxycodone Screen NEGATIVE NEGATIVE Urine Methadone Screen NEGATIVE NEGATIVE Urine Propoxyphene Screen NEGATIVE NEGATIVE Urine Barbiturates Screen NEGATIVE NEGATIVE Ur Tricyclic Antidepressants Screen NEGATIVE NEGATIVE Urine Phencyclidine Screen NEGATIVE NEGATIVE Urine Amphetamines Screen NEGATIVE NEGATIVE Urine Methamphetamines Screen NEGATIVE NEGATIVE Urine Benzodiazepines Screen NEGATIVE NEGATIVE Urine Cocaine Screen NEGATIVE NEGATIVE Urine Cannabinoids Screen POSITIVE H NEGATIVE My Orders Orders - KEZIA SANTOS APRN Cbc With Automated Diff (03/22/21 15:03) Comprehensive Metabolic Panel (03/22/21 15:03) Bnp Divide (03/22/21 15:03) Alcohol (03/22/21 15:03) Protime With Inr (03/22/21 15:03) Ua Culture If Indicated (03/22/21 15:03) Drug Screen Stat (Urine) (03/22/21 15:03) Chest 1 View, Ap/Pa Only (03/22/21 15:03) Thyroid Stimulating Hormone (03/22/21 15:03) Free T4 (Free Thyroxine) (03/22/21 15:03) Ed Iv/Invasive Line Start (03/22/21 15:03) Ns Iv 500 Ml (Sodium Chloride 0.9%) (03/22/21 15:15) Vital Signs/I&O 03/22/21 14:40 Temp 36.8 Pulse 101 Resp 18 B/P (MAP) 141/94 (110) Pulse Ox 97 O2 Delivery Room Air Capillary Refill : Less Than 3 Seconds Blood Pressure Mean: 110 Departure Impression Primary Impression: Alcohol intoxication Additional Impression: Nonischemic dilated cardiomyopathy Disposition: 01 HOME, SELF-CARE Condition: Stable Departure-Patient Inst. Decision time for Depature: 15:40 Referrals: GAURANG TERRELL DO (PCP/Family) Primary Care Physician Patient Instructions: Alcohol Intoxication ED, Dilated Cardiomyopathy Add. Discharge Instructions: 1. Your heart failure will never improve without cessation of alcohol use. This will only serve to worsen your condition until you ultimately an early . If you have interest in stopping the alcohol use, call [email or web address] here in [place] and ask for the addiction treatment program for help facilitating this. All discharge instructions reviewed with patient and/or family. Voiced understanding. KEZIA SANTOS GLUE MIXER Mar 22, 2021 15:13
[2021-03-22 15:14] LABS: ALBUMIN 3.9 GM/DL (3.2-4.5); POTASSIUM 3.7 MMOL/L (3.6-5.0)
[2021-03-22 15:15] LABS: CALCIUM 9.1 MG/DL (8.5-10.1); INR 0.9 (0.8-1.4); PROTHROMBIN TIME PATIENT 12.9 SEC (12.2-14.7)
[2021-03-22] MEDS ORDERED: NS IV 500 ML 500 ML IV SCH (15:15)
[2021-03-22 15:17] LABS: TOTAL PROTEIN 7.3 GM/DL (6.4-8.2)
[2021-03-22 15:18] LABS: BILIRUBIN,TOTAL 0.5 MG/DL (0.1-1.0)
[2021-03-22 15:21] LABS: CREATININE SERUM 1.23 MG/DL (0.60-1.30)
[2021-03-22 15:28] LABS: BILIRUBIN,URINE NEGATIVE (NEGATIVE); CLARITY,URINE CLEAR; COLOR,URINE YELLOW; GLUCOSE, URINE (UA) 2+ (NEGATIVE); KETONES,URINE NEGATIVE (NEGATIVE); LEUKOCYTE ESTERASE ,URINE NEGATIVE (NEGATIVE); NITRITE,URINE NEGATIVE (NEGATIVE); PROTEIN,URINE NEGATIVE (NEGATIVE)
[2021-03-22 15:44] LABS: FREE T4 (FREE THYROXINE) 0.85 NG/DL (0.70-1.48)
[2021-03-22 15:48] LABS: AMPHETAMINE SCREEN, URINE NEGATIVE (NEGATIVE); BARBITURATE SCREEN URINE NEGATIVE (NEGATIVE); BENZODIAZEPINES SCREEN URINE NEGATIVE (NEGATIVE); CANNABINOID SCREEN, URINE POSITIVE (NEGATIVE); COCAINE SCREEN URINE NEGATIVE (NEGATIVE); METHADONE STAT NEGATIVE (NEGATIVE); METHAMPHETAMINE SCREEN URINE S NEGATIVE (NEGATIVE); OPIATE SCREEN URINE NEGATIVE (NEGATIVE); OXYCODONE STAT NEGATIVE (NEGATIVE); PROPOXYPHENE STAT NEGATIVE (NEGATIVE); TRICYCLIC ANTIDEPRESSANTS SCRE NEGATIVE (NEGATIVE)
[2021-03-22 15:50] LABS: BACTERIA,URINE NEGATIVE /HPF; SQUAMOUS EPITHELIAL CELL,UR 0-2 /HPF
--- NOTE | 2021-03-22 15:55 | Diagnostic Imaging Report ---
INDICATION: Lightheadedness, history of cardiac disease. TECHNIQUE/COMPARISON: A portable chest was obtained at 3:45 PM and compared to 01/08/2021. FINDINGS: The study is technically limited due to body habitus. There is post sternotomy change with prominent cardiomegaly and an unchanged pacemaker device. There is mild central vascular prominence. The lung bases are not well seen due to technique. There is no definite consolidation, pneumothorax, or pleural fluid. IMPRESSION: Technically limited study due to patient body habitus with prominent cardiomegaly and mild central vascular prominence. No definite consolidation or pleural fluid although the lung bases are not well evaluated due to limitation. The film was taken in a somewhat lordotic projection. PA and lateral views if the chest for followup may be helpful when patient is able. Dictated by: Dictated on workstation # [id number]
[2021-03-22 16:08] VITALS: BP 134/81
== END 2021-03-22 16:08 | disposition home or self-care (01) ==
LOC: EDUNIT# 14:30 → ER 14:33
DX: F10.929 Alcohol use, unspecified with intoxication, unspecified (principal); I42.0 Dilated cardiomyopathy; I11.0 Hypertensive heart disease with heart failure; I50.9 Heart failure, unspecified; E11.40 Type 2 diabetes mellitus with diabetic neuropathy, unspecified; I48.91 Unspecified atrial fibrillation; G89.29 Other chronic pain; M54.9 Dorsalgia, unspecified; Y90.7 Blood alcohol level of 200-239 mg/100 ml; Z95.4 Presence of other heart-valve replacement; Z95.0 Presence of cardiac pacemaker; Z79.82 Long term (current) use of aspirin; Z79.4 Long term (current) use of insulin; Z79.84 Long term (current) use of oral hypoglycemic drugs; Z79.899 Other long term (current) drug therapy
CPT/HCPCS: 36415; 71045; 80053; 80306; 80320; 81000; 83880; 84439; 84443; 85025; 85610

== ENCOUNTER → 2022-02-15 | Outpatient (CLI) | payer MEDICAID, MEDICARE | LOC: CARD 10:26 | PROVIDERS: ATTEND Physician Assistant | DX: I11.9 Hypertensive heart disease without heart failure (principal); I25.10 Atherosclerotic heart disease of native coronary artery without angina pectoris; Z95.2 Presence of prosthetic heart valve | CPT/HCPCS: 93306 ==